=== PATIENT | male | born 1945 | race African-American/Black ===

== ENCOUNTER 2017-07-14 15:10 | Inpatient (IN) | payer MEDICARE, OTHER ==
[~2017-07-14] VITALS: Ht 182.9 cm; Wt 113.4 kg
[2017-07-14 15:30] VITALS: BP 182/95
--- NOTE | 2017-07-14 16:06 | Emergency Room Report ---
History of Present Illness General Chief Complaint: General Complaint Source: Medical Record, EMS, PMD Present Illness HPI Patient was sent in to have the gastrostomy tube removed. He apparently is able to eat and swallow without any difficulty this time. Tube was placed after a CVA and aspiration. The patient has no complaints at this time. S/P CVA. Had aspiration after CVA with dysphagia. Diabetes. Glaucoma R eye. Denies pain. Patient poor historian and history is limited. Allergies: Coded Allergies: No Known Allergies (Unverified , 07/14/17) Patient History Limited by: medical condition Past Medical History: see triage record, old chart reviewed Social History Narrative [place] Reviewed Nursing Documentation: PMH: Agreed, PSxH: Agreed Nursing Documentation-PMH Hx Hypertension: Yes Hx Cerebrovascular Accident: Yes Review of Systems All Other Systems: limited Physical Exam Vital Signs Date Time Temp Pulse Resp B/P (MAP) Pulse Ox O2 Delivery O2 Flow Rate FiO2 07/14/17 15:27 98.8 96 16 180/90 98 Room Air 98.8 Sp02 EP Interpretation: reviewed, normal General Appearance: no apparent distress, alert, Chronically Ill Head: normocephalic, atraumatic Eyes: right eye other - Opacity right cornea ENT: hearing grossly normal, normal voice, moist mucus membranes Neck: full range of motion, supple Respiratory: no respiratory distress, speaking full sentences Cardiovascular #1: regular rate, rhythm, no edema Gastrointestinal: normal inspection, normal bowel sounds, soft, no mass, other - peg tube Musculoskeletal: non-tender, no calf tenderness Neurologic: alert, DTRs symmetric, sensory intact, normal gait Psychiatric: mood/affect normal Skin: no rash Medical Decision Making Diagnostic Impression: Primary Impression: Gastrostomy tube evaluation Additional Impressions: Status post stroke Renal insufficiency Glaucoma Qualified Codes: H40.9 - Unspecified glaucoma Hyperglycemia ER Course The patient is here to have his gastrostomy tube removed. He is able to eat at this time. Denies any pain. Consideration for possible dehydration. Labs, Abd film and EKG ordered. IV hydration ordered. Because PEG tube that I am unable to remove. Labs with normal CBC, elevated renal function (no mention of insufficiency in past or access to old labs). Glucose elevated. EKG no injury. Abd film with inc stool and G tube. Patient treated with IV hydration. Dr. Springer requests admission to the [facility]. Laboratory Tests Test 07/14/17 17:50 07/14/17 18:36 White Blood Count 5.9 K/UL (4.8-10.8) Red Blood Count 4.07 M/UL (4.70-6.10) L Hemoglobin 13.1 G/DL (14.2-18.0) L Hematocrit 39.6 % (42.0-52.0) L Mean Corpuscular Volume 97 FL (80-99) Mean Corpuscular Hemoglobin 32.1 PG (27.0-31.0) H Mean Corpuscular Hemoglobin Concent 33.0 G/DL (32.0-36.0) Red Cell Distribution Width 13.6 % (11.6-14.8) Platelet Count 100 K/UL (150-450) L Mean Platelet Volume 10.1 FL (6.5-10.1) Neutrophils (%) (Auto) 49.6 % (45.0-75.0) Lymphocytes (%) (Auto) 36.9 % (20.0-45.0) Monocytes (%) (Auto) 7.5 % (1.0-10.0) Eosinophils (%) (Auto) 4.6 % (0.0-3.0) H Basophils (%) (Auto) 1.4 % (0.0-2.0) Prothrombin Time 10.2 SEC (9.30-11.50) Prothrombin Time INR 1.0 (0.9-1.1) PTT 25 SEC (23-33) Sodium Level 141 MMOL/L (136-145) Potassium Level 4.2 MMOL/L (3.5-5.1) Chloride Level 106 MMOL/L (98-107) Carbon Dioxide Level 30 MMOL/L (21-32) Anion Gap 5 mmol/L (5-15) Blood Urea Nitrogen 29 mg/dL (7-18) H Creatinine 2.0 MG/DL (0.55-1.30) H Estimate Glomerular Filtration Rate mL/min (>60) Glucose Level 232 MG/DL (74-106) H Uric Acid 5.2 MG/DL (2.6-7.2) Calcium Level 8.2 MG/DL (8.5-10.1) L Total Bilirubin 0.5 MG/DL (0.2-1.0) Aspartate Amino Transferase (AST) 15 U/L (15-37) Alanine Aminotransferase (ALT) 24 U/L (12-78) Alkaline Phosphatase 121 U/L (46-116) H Total Creatine Kinase 71 U/L (26-308) Total Protein 7.3 G/DL (6.4-8.2) Albumin 2.8 G/DL (3.4-5.0) L Globulin 4.5 g/dL Albumin/Globulin Ratio 0.6 (1.0-2.7) L Lipase 119 U/L (73-393) Urine Color Yellow Urine Appearance Clear Urine pH 6 (4.5-8.0) Urine Specific [place] 1.015 (1.005-1.035) Urine Protein 4+ (NEGATIVE) H Urine Glucose (UA) 2+ (NEGATIVE) H Urine Ketones Negative (NEGATIVE) Urine Occult Blood 1+ (NEGATIVE) H Urine Nitrite Negative (NEGATIVE) Urine Bilirubin Negative (NEGATIVE) Urine Urobilinogen Normal MG/DL (0.0-1.0) Urine Leukocyte Esterase Negative (NEGATIVE) Urine RBC 0-2 /HPF (0 - 0) H Urine WBC 2-4 /HPF (0 - 0) Urine Squamous Epithelial Cells None /LPF (NONE/OCC) Urine Amorphous Sediment Few /LPF (NONE) H Urine Bacteria Few /HPF (NONE) Urine Fine Granular Casts 0-2 /LPF (NONE) H Urine Coarse Granular Casts 0-2 /LPF (NONE) H Urine Eosinophils None seen Urine Random Sodium 60 MEQ/L (20-110) Urine Potassium Timed 50 mmol/L (12-62) EKG Diagnostic Results Rate: normal Rhythm: NSR ST Segments: no acute changes Rhythm Strip Diag. Results EP Interpretation: yes Rhythm: NSR, no PVC's, no ectopy Other X-Ray Diagnostic Results Other X-Ray Diagnostic Results : # of Views/Limited Vs Complete: 1 View Indication: Other EP Interpretation: Yes Interpretation: nonspecific bowel gas, no sbo, other - inc stool and g tube Impression: Other Electronically Signed by: Fco Mondragon MD Last Vital Signs Date Time Temp Pulse Resp B/P (MAP) Pulse Ox O2 Delivery O2 Flow Rate FiO2 07/14/17 23:05 97.5 77 19 142/77 96 Room Air 97.5 Status: improved Disposition: ADMITTED INPATIENT Condition: Stable Fco Mondragon M.D. Jul 14, 2017 16:06
[2017-07-14] MEDS ORDERED: ACETAMINOPHEN325 M1 ORAL (17:51)
[2017-07-14] MEDS ORDERED: ATORVASTATIN CA80 MG ORAL (17:52)
[2017-07-14] MEDS ORDERED: ALLOPURINOL100 M1 ORAL (17:52)
[2017-07-14] MEDS ORDERED: CARVEDILOL3.125 MG ORAL (17:53)
[2017-07-14] MEDS ORDERED: FERROUS SULFAT325 MG ORAL (17:54)
[2017-07-14] MEDS ORDERED: PEPCID20 MG ORAL (17:54)
[2017-07-14] MEDS ORDERED: NOVOLIN R100 UNIT/1 SUBQ (17:57)
[2017-07-14] MEDS ORDERED: MULTIVITAMINS1 EAC8 ORAL (17:58)
[2017-07-14] MEDS ORDERED: LEVEMIR100 UNIT/1 SUBQ (17:58)
[2017-07-14] MEDS ORDERED: DOCUSATE SODIU100 MG ORAL (17:59)
[2017-07-14 18:00] VITALS: BP 180/96
[2017-07-14 18:17] LABS: BASOPHILS % (AUTO) 1.4 % (0.0-2.0); EOSINOPHILS % (AUTO) 4.6 % (0.0-3.0); HEMATOCRIT 39.6 % (42.0-52.0); HEMOGLOBIN 13.1 G/DL (14.2-18.0); LYMPHOCYTES % (AUTO) 36.9 % (20.0-45.0); MEAN CORPUSCULAR VOLUME 97 FL (80-99); MONOCYTES % (AUTO) 7.5 % (1.0-10.0); NEUTROPHILS % (AUTO) 49.6 % (45.0-75.0); PLATELET COUNT 100 K/UL (150-450); RED BLOOD COUNT 4.07 M/UL (4.70-6.10); RED CELL DISTRIBUTION WIDTH 13.6 % (11.6-14.8); WHITE BLOOD COUNT 5.9 K/UL (4.8-10.8)
[2017-07-14 18:26] LABS: ANION GAP 5 mmol/L (5-15); BLOOD UREA NITROGEN 29 mg/dL (7-18); CALCIUM 8.2 MG/DL (8.5-10.1); CARBON DIOXIDE 30 MMOL/L (21-32); CHLORIDE 106 MMOL/L (98-107); POTASSIUM 4.2 MMOL/L (3.5-5.1); SODIUM 141 MMOL/L (136-145)
[2017-07-14 18:31] LABS: ALANINE AMINOTRANSFERASE 24 U/L (12-78); ALBUMIN 2.8 G/DL (3.4-5.0); ALBUMIN/GLOBULIN RATIO 0.6 (1.0-2.7); ALKALINE PHOSPHATASE 121 U/L (46-116); ASPARTATE AMINO TRANSFERASE 15 U/L (15-37); BILIRUBIN,TOTAL 0.5 MG/DL (0.2-1.0)
[2017-07-14 18:43] VITALS: BP 153/88
[2017-07-14 19:12] LABS: APPEARANCE,URINE CLEAR; BILIRUBIN, URINE NEGATIVE (NEGATIVE); GLUCOSE, URINE (UA) 2+ (NEGATIVE); KETONES,URINE NEGATIVE (NEGATIVE); LEUKOCYTE ESTERASE ,URINE NEGATIVE (NEGATIVE); NITRITE,URINE NEGATIVE (NEGATIVE); PH,URINE 6 (4.5-8.0); PROTEIN,URINE 4+ (NEGATIVE); UROBILINOGEN,URINE NORMAL MG/DL (0.0-1.0)
[2017-07-14] MEDS ORDERED: LORazepam Inj 2mg/ml 1ml IV PRN (19:15)
[2017-07-14] MEDS ORDERED: Morphine Sulfate 4mg/ml Inj IVP PRN (19:15)
[2017-07-14] MEDS ORDERED: Miralax 17gm pkt ORAL PRN (19:15)
[2017-07-14] MEDS ORDERED: Mylanta II UD 30ml ORAL PRN (19:15)
[2017-07-14 19:26] LABS: COLOR,URINE YELLOW
[2017-07-14 19:45] VITALS: BP 145/89
[2017-07-14 20:19] LABS: CREATINE KINASE 71 U/L (26-308)
[2017-07-14] MEDS: Heparin 5000 units/ml inj SUBQ SCH (21:00)
[2017-07-14] MEDS ORDERED: Zolpidem 5mg tab ORAL PRN (21:00)
[2017-07-14] MEDS: Atorvastatin 80mg tab ORAL SCH (21:33)
[2017-07-14] MEDS: NovoLOG Insulin Flexpen SUBQ SCH (21:37)
[2017-07-14 23:05] VITALS: BP 142/77
[2017-07-15] VITALS: BP 154/77
[2017-07-15 04:00] VITALS: BP 160/90
[2017-07-15 06:34] LABS: BASOPHILS % (AUTO) 0.8 % (0.0-2.0); EOSINOPHILS % (AUTO) 4.9 % (0.0-3.0); HEMATOCRIT 33.4 % (42.0-52.0); HEMOGLOBIN 11.3 G/DL (14.2-18.0); LYMPHOCYTES % (AUTO) 40.7 % (20.0-45.0); MEAN CORPUSCULAR VOLUME 97 FL (80-99); MONOCYTES % (AUTO) 7.3 % (1.0-10.0); NEUTROPHILS % (AUTO) 46.3 % (45.0-75.0); PLATELET COUNT 103 K/UL (150-450); RED BLOOD COUNT 3.44 M/UL (4.70-6.10); RED CELL DISTRIBUTION WIDTH 12.6 % (11.6-14.8); WHITE BLOOD COUNT 5.3 K/UL (4.8-10.8)
[2017-07-15] MEDS: Levemir Flexpen SUBQ SCH (06:52)
[2017-07-15] MEDS: NovoLOG Insulin Flexpen SUBQ SCH ×3 (06:52→17:23)
[2017-07-15 07:25] LABS: ALANINE AMINOTRANSFERASE 23 U/L (12-78); ALBUMIN 2.5 G/DL (3.4-5.0); ALBUMIN/GLOBULIN RATIO 0.6 (1.0-2.7); ALKALINE PHOSPHATASE 104 U/L (46-116); ANION GAP 9 mmol/L (5-15); ASPARTATE AMINO TRANSFERASE 15 U/L (15-37); BILIRUBIN,TOTAL 0.7 MG/DL (0.2-1.0); BLOOD UREA NITROGEN 26 mg/dL (7-18); CALCIUM 7.9 MG/DL (8.5-10.1); CARBON DIOXIDE 25 MMOL/L (21-32); CHLORIDE 109 MMOL/L (98-107); CHOLESTEROL 97 MG/DL (< 200); CREATININE 1.8 MG/DL (0.55-1.30); HDL CHOLESTEROL 45 MG/DL (40-60); POTASSIUM 4.1 MMOL/L (3.5-5.1); SODIUM 143 MMOL/L (136-145); TRIGLYCERIDES 52 MG/DL (30-150)
[2017-07-15 08:00] VITALS: BP 137/74
[2017-07-15] MEDS: Allopurinol 100mg Tab ORAL SCH (08:40)
[2017-07-15] MEDS: Heparin 5000 units/ml inj SUBQ SCH (08:45)
--- NOTE | 2017-07-15 11:13 | GI Initial Consult Note ---
Ojeda,Chioma Morinoi N.P. 07/15/17 1112: History of Present Illness General Date patient seen: Jul 15, 2017 Time patient seen: 11:05 Reason for Hospitalization: General Complaint Referring physician: NATHALIA SHAH Reason for Consultation: GT REMOVAL Present Illness HPI Patient was sent in to have the gastrostomy tube removed. He apparently is able to eat and swallow without any difficulty this time. Tube was placed after a CVA and aspiration. The patient has no complaints at this time. S/P CVA. Had aspiration after CVA with dysphagia. Diabetes. Glaucoma R eye. Denies pain. Patient poor historian and history is limited. GI consulted for GT removal. Pt blind. Poor historian. Seen on Med Surg, awake A&O NAD with no active s/sx of N/V/D. Pt states he doesn't need GT anymore, tolerating diet. Presents with mild anemia. Denies any unintentional weight loss or changes in dietary habits. Home Meds Reported Medications Docusate Sodium* (DOCUSATE SODIUM*) 100 Mg Capsule, 200 MG ORAL DAILY, CAP 07/14/17 Multivitamin With Minerals (MULTIVITAMINS WITH MINERALS*) 1 Each Tablet, 1 TAB ORAL DAILY, TAB 07/14/17 Insulin Detemir (LEVEMIR) 100 Unit/1 Ml Vial, 44 UNITS SUBQ ACBREAKFAST, VIAL Hold if BG <100 07/14/17 Insulin Regular, Human* (NOVOLIN R*) 100 Unit/1 Ml Vial, 0 SUBQ .SLIDING SCALE, UNITS If 151-200 = 2 units; 201-250 = 4 units; 251-300 = 6 units; 301-350 = 8 units; 351-400 = 10 units, SQ before meals and at bedtime. Finger stick blood sugar monitoring Q6Hrs, if >400, give 12 units and call MD 07/14/17 Ferrous Sulfate* (FERROUS SULFATE*) 325 Mg Tablet, 325 MG ORAL DAILY, #30 TAB 0 Refills 07/14/17 Famotidine (PEPCID) 20 Mg Tablet, 20 MG ORAL BID, #7 TAB 0 Refills 07/14/17 Carvedilol* (CARVEDILOL*) 3.125 Mg Tablet, 3.125 MG ORAL BID, TAB Take with food. Hold if SBP <110 or HR <60 07/14/17 Atorvastatin Calcium* (LIPITOR*) 80 Mg Tablet, 80 MG ORAL BEDTIME, TAB 07/14/17 Allopurinol* (ALLOPURINOL*) 100 Mg Tablet, 100 MG ORAL DAILY, TAB 07/14/17 Acetaminophen* (ACETAMINOPHEN 325MG TABLET*) 325 Mg Tablet, 650 MG ORAL Q6H Y for Mild Pain/Temp > 100.5 MDD 3GM, TAB 07/14/17 Med list reviewed/reconciled: Yes Allergies: Coded Allergies: No Known Allergies (Unverified , 07/14/17) Patient History History Provided By: Patient, Medical Record PMH Narrative Limited by: medical condition Past Medical History: see triage record, old chart reviewed Social History Narrative [place] Reviewed Nursing Documentation: PMH: Agreed, PSxH: Agreed Nursing Documentation-PMH Hx Hypertension: Yes Hx Cerebrovascular Accident: Yes Social History: Denies: smoking, alcohol use, drug use, other Review of Systems All Other Systems: negative except mentioned in HPI Physical Exam Vital Signs Date Time Temp Pulse Resp B/P (MAP) Pulse Ox O2 Delivery O2 Flow Rate FiO2 07/14/17 15:27 98.8 96 16 180/90 98 Room Air 98.8 Sp02 EP Interpretation: reviewed, normal Labs Laboratory Tests Test 07/14/17 17:50 07/14/17 18:36 07/15/17 05:15 White Blood Count 5.9 K/UL (4.8-10.8) 5.3 K/UL (4.8-10.8) Red Blood Count 4.07 M/UL (4.70-6.10) L 3.44 M/UL (4.70-6.10) L Hemoglobin 13.1 G/DL (14.2-18.0) L 11.3 G/DL (14.2-18.0) L Hematocrit 39.6 % (42.0-52.0) L 33.4 % (42.0-52.0) L Mean Corpuscular Volume 97 FL (80-99) 97 FL (80-99) Mean Corpuscular Hemoglobin 32.1 PG (27.0-31.0) H 32.8 PG (27.0-31.0) H Mean Corpuscular Hemoglobin Concent 33.0 G/DL (32.0-36.0) 33.8 G/DL (32.0-36.0) Red Cell Distribution Width 13.6 % (11.6-14.8) 12.6 % (11.6-14.8) Platelet Count 100 K/UL (150-450) L 103 K/UL (150-450) L Mean Platelet Volume 10.1 FL (6.5-10.1) 10.1 FL (6.5-10.1) Neutrophils (%) (Auto) 49.6 % (45.0-75.0) 46.3 % (45.0-75.0) Lymphocytes (%) (Auto) 36.9 % (20.0-45.0) 40.7 % (20.0-45.0) Monocytes (%) (Auto) 7.5 % (1.0-10.0) 7.3 % (1.0-10.0) Eosinophils (%) (Auto) 4.6 % (0.0-3.0) H 4.9 % (0.0-3.0) H Basophils (%) (Auto) 1.4 % (0.0-2.0) 0.8 % (0.0-2.0) Prothrombin Time 10.2 SEC (9.30-11.50) Prothromb Time International Ratio 1.0 (0.9-1.1) Activated Partial Thromboplast Time 25 SEC (23-33) Sodium Level 141 MMOL/L (136-145) 143 MMOL/L (136-145) Potassium Level 4.2 MMOL/L (3.5-5.1) 4.1 MMOL/L (3.5-5.1) Chloride Level 106 MMOL/L (98-107) 109 MMOL/L (98-107) H Carbon Dioxide Level 30 MMOL/L (21-32) 25 MMOL/L (21-32) Anion Gap 5 mmol/L (5-15) 9 mmol/L (5-15) Blood Urea Nitrogen 29 mg/dL (7-18) H 26 mg/dL (7-18) H Creatinine 2.0 MG/DL (0.55-1.30) H 1.8 MG/DL (0.55-1.30) H Estimat Glomerular Filtration Rate mL/min (>60) mL/min (>60) Glucose Level 232 MG/DL (74-106) H 180 MG/DL (74-106) H Uric Acid 5.2 MG/DL (2.6-7.2) Calcium Level 8.2 MG/DL (8.5-10.1) L 7.9 MG/DL (8.5-10.1) L Total Bilirubin 0.5 MG/DL (0.2-1.0) 0.7 MG/DL (0.2-1.0) Aspartate Amino Transf (AST/SGOT) 15 U/L (15-37) 15 U/L (15-37) Alanine Aminotransferase (ALT/SGPT) 24 U/L (12-78) 23 U/L (12-78) Alkaline Phosphatase 121 U/L (46-116) H 104 U/L (46-116) Total Creatine Kinase 71 U/L (26-308) Total Protein 7.3 G/DL (6.4-8.2) 6.6 G/DL (6.4-8.2) Albumin 2.8 G/DL (3.4-5.0) L 2.5 G/DL (3.4-5.0) L Globulin 4.5 g/dL 4.1 g/dL Albumin/Globulin Ratio 0.6 (1.0-2.7) L 0.6 (1.0-2.7) L Lipase 119 U/L (73-393) Urine Color Yellow Urine Appearance Clear Urine pH 6 (4.5-8.0) Urine Specific [place] 1.015 (1.005-1.035) Urine Protein 4+ (NEGATIVE) H Urine Glucose (UA) 2+ (NEGATIVE) H Urine Ketones Negative (NEGATIVE) Urine Occult Blood 1+ (NEGATIVE) H Urine Nitrite Negative (NEGATIVE) Urine Bilirubin Negative (NEGATIVE) Urine Urobilinogen Normal MG/DL (0.0-1.0) Urine Leukocyte Esterase Negative (NEGATIVE) Urine RBC 0-2 /HPF (0 - 0) H Urine WBC 2-4 /HPF (0 - 0) Urine Squamous Epithelial Cells None /LPF (NONE/OCC) Urine Amorphous Sediment Few /LPF (NONE) H Urine Bacteria Few /HPF (NONE) Urine Fine Granular Casts 0-2 /LPF (NONE) H Urine Coarse Granular Casts 0-2 /LPF (NONE) H Urine Eosinophils None seen Urine Random Sodium 60 MEQ/L (20-110) Urine Potassium Timed 50 mmol/L (12-62) Triglycerides Level 52 MG/DL (30-150) Cholesterol Level 97 MG/DL (< 200) LDL Cholesterol 51 mg/dL (<100) HDL Cholesterol 45 MG/DL (40-60) Cholesterol/HDL Ratio 2.2 (3.3-4.4) L General Appearance: well appearing, no apparent distress, alert Head: normocephalic EENT: other - blind Neck: supple Respiratory: normal breath sounds, no respiratory distress Cardiovascular: normal rate Gastrointestinal: normal inspection, non tender, soft, normal bowel sounds, non -distended Rectal: deferred Genitourinary: deferred Musculoskeletal: normal inspection, back normal Neurologic: normal inspection, alert, oriented x3, responsive Psychiatric: normal inspection, judgement/insight normal, memory normal Skin: normal inspection, normal color, no rash, warm/dry, palpation normal, well hydrated Lymphatic: normal inspection, no adenopathy Current Medications Current Medications Medications (Trade) Dose Ordered Sig/Jethro Route PRN Reason Start Time Stop Time Status Last Admin Dose Admin Acetaminophen (Tylenol) 650 mg Q4H PRN ORAL T>100.5 07/14/17 19:15 08/13/17 19:14 Al Hydroxide/Mg Hydroxide (Mylanta II) 30 ml Q6H PRN ORAL dyspepsia 07/14/17 19:15 08/13/17 19:14 Allopurinol (Zyloprim) 100 mg DAILY ORAL 07/15/17 09:00 08/14/17 08:59 07/15/17 08:40 Atorvastatin Calcium (Lipitor) 80 mg BEDTIME ORAL 07/14/17 21:00 08/13/17 20:59 07/14/17 21:33 Carvedilol (Coreg) 3.125 mg Q12HR ORAL 07/14/17 21:00 08/13/17 20:59 07/15/17 08:44 Clonidine HCl (Catapres Tab) 0.1 mg Q6H PRN ORAL For High Blood Pressure 07/15/17 06:45 08/14/17 06:44 07/15/17 06:54 Dextrose (Dextrose 50%) STAT PRN IV Hypoglycemia 07/14/17 19:15 08/13/17 19:14 Heparin Sodium (Porcine) (Heparin 5000 units/ml) 5,000 units EVERY 12 HOURS SUBQ 07/14/17 21:00 08/13/17 20:59 07/15/17 08:45 Insulin Aspart (NovoLOG) BEFORE MEALS AND HS SUBQ 07/14/17 21:00 08/13/17 20:59 07/15/17 06:52 Insulin Detemir (Levemir) 34 units Q24H SUBQ 07/15/17 06:30 08/14/17 06:29 07/15/17 06:52 Lorazepam (Ativan 2mg/ml 1ml) 0.5 mg Q4H PRN IV For Anxiety 07/14/17 19:15 07/21/17 19:14 Morphine Sulfate (Morphine Sulfate) 1 mg Q4H PRN IVP Severe Pain (Pain Scale 7-10) 07/14/17 19:15 07/21/17 19:14 Ondansetron HCl (Zofran) 4 mg Q6H PRN IVP Nausea & Vomiting 07/14/17 19:15 08/13/17 19:14 Polyethylene Glycol (Miralax) 17 gm HSPRN PRN ORAL Constipation 07/14/17 19:15 08/13/17 19:14 07/14/17 23:39 Sodium Chloride 1,000 ml @ 200 mls/hr Q5H IV 07/14/17 19:45 08/13/17 19:44 07/15/17 03:09 Zolpidem Tartrate (Ambien) 5 mg HSPRN PRN ORAL Insomnia 07/14/17 21:00 07/21/17 20:59 GI: Plan Problems: (1) Anemia (2) PEG (percutaneous endoscopic gastrostomy) adjustment/replacement/removal (3) Hyperglycemia Plan ST evaluation ordered, will follow up for GT removal DM management anemia work up monitor H&H, prn transfusions bowel regime ppi fu labs Discussed with Dr. Shields. Thank you for this patient referral, we will follow. LUCIUS SHIELDS 07/20/17 1221: History of Present Illness General Reason for Hospitalization: General Complaint Present Illness Home Meds Reported Medications Docusate Sodium* (DOCUSATE SODIUM*) 100 Mg Capsule, 200 MG ORAL DAILY, CAP 07/14/17 Multivitamin With Minerals (MULTIVITAMINS WITH MINERALS*) 1 Each Tablet, 1 TAB ORAL DAILY, TAB 07/14/17 Insulin Detemir (LEVEMIR) 100 Unit/1 Ml Vial, 44 UNITS SUBQ ACBREAKFAST, VIAL Hold if BG <100 07/14/17 Insulin Regular, Human* (NOVOLIN R*) 100 Unit/1 Ml Vial, 0 SUBQ .SLIDING SCALE, UNITS If 151-200 = 2 units; 201-250 = 4 units; 251-300 = 6 units; 301-350 = 8 units; 351-400 = 10 units, SQ before meals and at bedtime. Finger stick blood sugar monitoring Q6Hrs, if >400, give 12 units and call MD 07/14/17 Ferrous Sulfate* (FERROUS SULFATE*) 325 Mg Tablet, 325 MG ORAL DAILY, #30 TAB 0 Refills 07/14/17 Famotidine (PEPCID) 20 Mg Tablet, 20 MG ORAL BID, #7 TAB 0 Refills 07/14/17 Carvedilol* (CARVEDILOL*) 3.125 Mg Tablet, 3.125 MG ORAL BID, TAB Take with food. Hold if SBP <110 or HR <60 07/14/17 Atorvastatin Calcium* (LIPITOR*) 80 Mg Tablet, 80 MG ORAL BEDTIME, TAB 07/14/17 Allopurinol* (ALLOPURINOL*) 100 Mg Tablet, 100 MG ORAL DAILY, TAB 07/14/17 Acetaminophen* (ACETAMINOPHEN 325MG TABLET*) 325 Mg Tablet, 650 MG ORAL Q6H Y for Mild Pain/Temp > 100.5 MDD 3GM, TAB 07/14/17 Allergies: Coded Allergies: No Known Allergies (Unverified , 07/14/17) GI: Plan Plan The patient was seen and examined at bedside and all new and available data was reviewed in the patients chart. I agree with the above findings, impression and plan. (Patient seen earlier today. Signature stamp does not reflect patient encounter time.). - MD Lynette Briscoe,[facility] N.PMuna Jul 15, 2017 11:12 LUCIUS SHIELDS Jul 20, 2017 12:21
--- NOTE | 2017-07-15 14:20 | Pulmonology Progress Note ---
Assessment/Plan Problems: (1) Diabetes mellitus (2) At high risk for aspiration (3) Hyperglycemia (4) Renal insufficiency (5) PEG (percutaneous endoscopic gastrostomy) adjustment/replacement/removal (6) Status post stroke Assessment/Plan passed swallow study gtube removed. iv fluids renal w/u check electrolytes dvt prophylaxis. Subjective ROS Limited/Unobtainable: No Allergies: Coded Allergies: No Known Allergies (Unverified , 07/14/17) Objective Last 24 Hour Vital Signs Date Time Temp Pulse Resp B/P (MAP) Pulse Ox O2 Delivery O2 Flow Rate FiO2 07/15/17 08:44 67 161/91 07/15/17 08:00 97.7 70 20 137/74 98 97.7 07/15/17 06:54 161/91 07/15/17 04:00 98.3 67 20 160/90 99 Room Air 98.3 07/15/17 00:00 98.5 71 20 154/77 99 Room Air 98.5 07/14/17 23:05 97.5 77 19 142/77 96 Room Air 97.5 07/14/17 21:34 77 142/77 07/14/17 19:45 98.7 80 19 145/89 100 Room Air 98.7 07/14/17 18:45 84 20 153/88 100 Room Air 07/14/17 18:43 153/88 07/14/17 18:00 80 16 180/96 100 Room Air 07/14/17 15:30 98.8 95 16 182/95 98 Room Air 98.8 07/14/17 15:27 98.8 96 16 180/90 98 Room Air 98.8 Intake and Output 07/14/17 07/15/17 19:00 07:00 Intake Total 0 ml 1000 ml Balance 0 ml 1000 ml Intake Oral 0 ml IV Total 1000 ml # Voids 2 Objective General Appearance: no apparent distress, awake, not communicating Lines, tubes and drains: peripheral HEENT: normocephalic, atraumatic, anicteric Neck: non-tender, supple Respiratory/Chest: decreased breath sounds Cardiovascular/Chest: normal rate, regular rhythm - SR with PVC Abdomen: normal bowel sounds, non tender, Gtube in place Neurologic: no motor/sensory deficits, alert, responsive Musculoskeletal: normal muscle bulk Laboratory Tests 07/14/17 17:50: White Blood Count 5.9, Red Blood Count 4.07L, Hemoglobin 13.1L, Hematocrit 39.6L , Mean Corpuscular Volume 97, Mean Corpuscular Hemoglobin 32.1H, Mean Corpuscular Hemoglobin Concent 33.0, Red Cell Distribution Width 13.6, Platelet Count 100L, Mean Platelet Volume 10.1, Neutrophils (%) (Auto) 49.6, Lymphocytes (%) (Auto) 36.9, Monocytes (%) (Auto) 7.5, Eosinophils (%) (Auto) 4.6H, Basophils (%) (Auto) 1.4, Prothrombin Time 10.2, Prothromb Time International Ratio 1.0, Activated Partial Thromboplast Time 25, Sodium Level 141, Potassium Level 4.2, Chloride Level 106, Carbon Dioxide Level 30, Anion Gap 5, Blood Urea Nitrogen 29H, Creatinine 2.0H, Estimat Glomerular Filtration Rate , Glucose Level 232H, Uric Acid 5.2, Calcium Level 8.2L, Total Bilirubin 0.5, Aspartate Amino Transf (AST/SGOT) 15, Alanine Aminotransferase (ALT/SGPT) 24, Alkaline Phosphatase 121H, Total Creatine Kinase 71, Total Protein 7.3, Albumin 2.8L, Globulin 4.5, Albumin/Globulin Ratio 0.6L, Lipase 119 07/14/17 18:36: Urine Color Yellow, Urine Appearance Clear, Urine pH 6, Urine Specific [place] 1.015, Urine Protein 4+H, Urine Glucose (UA) 2+H, Urine Ketones Negative, Urine Occult Blood 1+H, Urine Nitrite Negative, Urine Bilirubin Negative, Urine Urobilinogen Normal, Urine Leukocyte Esterase Negative, Urine RBC 0-2H, Urine WBC 2-4, Urine Squamous Epithelial Cells None, Urine Amorphous Sediment FewH, Urine Bacteria Few, Urine Fine Granular Casts 0-2H, Urine Coarse Granular Casts 0-2H, Urine Eosinophils None seen, Urine Random Sodium 60, Urine Potassium Timed 50 07/15/17 05:15: White Blood Count 5.3, Red Blood Count 3.44L, Hemoglobin 11.3L, Hematocrit 33.4L , Mean Corpuscular Volume 97, Mean Corpuscular Hemoglobin 32.8H, Mean Corpuscular Hemoglobin Concent 33.8, Red Cell Distribution Width 12.6, Platelet Count 103L, Mean Platelet Volume 10.1, Neutrophils (%) (Auto) 46.3, Lymphocytes (%) (Auto) 40.7, Monocytes (%) (Auto) 7.3, Eosinophils (%) (Auto) 4.9H, Basophils (%) (Auto) 0.8, Sodium Level 143, Potassium Level 4.1, Chloride Level 109H, Carbon Dioxide Level 25, Anion Gap 9, Blood Urea Nitrogen 26H, Creatinine 1.8H, Estimat Glomerular Filtration Rate , Glucose Level 180H, Calcium Level 7.9L, Total Bilirubin 0.7, Aspartate Amino Transf (AST/SGOT) 15, Alanine Aminotransferase (ALT/SGPT) 23, Alkaline Phosphatase 104, Total Protein 6.6, Albumin 2.5L, Globulin 4.1, Albumin/Globulin Ratio 0.6L, Triglycerides Level 52 , Cholesterol Level 97, LDL Cholesterol 51, HDL Cholesterol 45, Cholesterol/HDL Ratio 2.2L Current Medications Medications (Trade) Dose Ordered Sig/Jethro Route PRN Reason Start Time Stop Time Status Last Admin Dose Admin Acetaminophen (Tylenol) 650 mg Q4H PRN ORAL T>100.5 07/14/17 19:15 08/13/17 19:14 Al Hydroxide/Mg Hydroxide (Mylanta II) 30 ml Q6H PRN ORAL dyspepsia 07/14/17 19:15 08/13/17 19:14 Allopurinol (Zyloprim) 100 mg DAILY ORAL 07/15/17 09:00 08/14/17 08:59 07/15/17 08:40 Atorvastatin Calcium (Lipitor) 80 mg BEDTIME ORAL 07/14/17 21:00 08/13/17 20:59 07/14/17 21:33 Carvedilol (Coreg) 3.125 mg Q12HR ORAL 07/14/17 21:00 08/13/17 20:59 07/15/17 08:44 Clonidine HCl (Catapres Tab) 0.1 mg Q6H PRN ORAL For High Blood Pressure 07/15/17 06:45 08/14/17 06:44 07/15/17 06:54 Dextrose (Dextrose 50%) STAT PRN IV Hypoglycemia 07/14/17 19:15 08/13/17 19:14 Heparin Sodium (Porcine) (Heparin 5000 units/ml) 5,000 units EVERY 12 HOURS SUBQ 07/14/17 21:00 08/13/17 20:59 07/15/17 08:45 Insulin Aspart (NovoLOG) BEFORE MEALS AND HS SUBQ 07/14/17 21:00 08/13/17 20:59 07/15/17 12:32 Insulin Detemir (Levemir) 34 units Q24H SUBQ 07/15/17 06:30 08/14/17 06:29 07/15/17 06:52 Lorazepam (Ativan 2mg/ml 1ml) 0.5 mg Q4H PRN IV For Anxiety 07/14/17 19:15 07/21/17 19:14 Morphine Sulfate (Morphine Sulfate) 1 mg Q4H PRN IVP Severe Pain (Pain Scale 7-10) 07/14/17 19:15 07/21/17 19:14 Ondansetron HCl (Zofran) 4 mg Q6H PRN IVP Nausea & Vomiting 07/14/17 19:15 08/13/17 19:14 Pantoprazole (Protonix) 40 mg DAILY ORAL 07/16/17 09:00 08/15/17 08:59 Polyethylene Glycol (Miralax) 17 gm HSPRN PRN ORAL Constipation 07/14/17 19:15 08/13/17 19:14 07/14/17 23:39 Zolpidem Tartrate (Ambien) 5 mg HSPRN PRN ORAL Insomnia 07/14/17 21:00 07/21/17 20:59 CELIA PATEL Jul 15, 2017 14:20
--- NOTE | 2017-07-15 14:20 | History and Physical ---
History of Present Illness General Date patient seen: Jul 14, 2017 Reason for Hospitalization: General Complaint Present Illness HPI 72 year old male with hx of CVA.aspiration after CVA with dysphagia., Diabetes.was sent in to have the gastrostomy tube removed and evaluation of aspiration. He apparently is able to eat and swallow without any difficulty this time. Patient poor historian and history is limited. Allergies: Coded Allergies: No Known Allergies (Unverified , 07/14/17) Medication History Scheduled Allopurinol* (Allopurinol*), 100 MG ORAL DAILY, (Reported) Atorvastatin Calcium* (Lipitor*), 80 MG ORAL BEDTIME, (Reported) Carvedilol* (Carvedilol*), 3.125 MG ORAL BID, (Reported) Docusate Sodium* (Docusate Sodium*), 200 MG ORAL DAILY, (Reported) Famotidine (Pepcid), 20 MG ORAL BID, (Reported) Ferrous Sulfate* (Ferrous Sulfate*), 325 MG ORAL DAILY, (Reported) Insulin Detemir (Levemir), 44 UNITS SUBQ ACBREAKFAST, (Reported) Insulin Regular, Human* (Novolin R*), 0 SUBQ .SLIDING SCALE, (Reported) Multivitamin With Minerals (Multivitamins With Minerals*), 1 TAB ORAL DAILY, ( Reported) Scheduled PRN Acetaminophen* (Acetaminophen 325MG Tablet*), 650 MG ORAL Q6H PRN for Mild Pain/ Temp > 100.5, (Reported) Patient History Healthcare decision maker Resuscitation status Full Code Advanced Directive on File Yes Past Medical/Surgical History Past Medical/Surgical History: (1) Diabetes mellitus (2) Status post stroke Review of Systems All Other Systems: negative except mentioned in HPI Physical Exam Physical Exam Narrative General Appearance: no apparent distress, awake, not communicating Lines, tubes and drains: peripheral HEENT: normocephalic, atraumatic, anicteric Neck: non-tender, supple Respiratory/Chest: decreased breath sounds Cardiovascular/Chest: normal rate, regular rhythm - SR with PVC Abdomen: normal bowel sounds, non tender, Gtube in place Neurologic: no motor/sensory deficits, alert, responsive Musculoskeletal: normal muscle bulk Last 24 Hour Vital Signs Date Time Temp Pulse Resp B/P (MAP) Pulse Ox O2 Delivery O2 Flow Rate FiO2 07/15/17 08:44 67 161/91 07/15/17 08:00 97.7 70 20 137/74 98 97.7 07/15/17 06:54 161/91 07/15/17 04:00 98.3 67 20 160/90 99 Room Air 98.3 07/15/17 00:00 98.5 71 20 154/77 99 Room Air 98.5 07/14/17 23:05 97.5 77 19 142/77 96 Room Air 97.5 07/14/17 21:34 77 142/77 07/14/17 19:45 98.7 80 19 145/89 100 Room Air 98.7 07/14/17 18:45 84 20 153/88 100 Room Air 07/14/17 18:43 153/88 07/14/17 18:00 80 16 180/96 100 Room Air 07/14/17 15:30 98.8 95 16 182/95 98 Room Air 98.8 07/14/17 15:27 98.8 96 16 180/90 98 Room Air 98.8 Intake and Output 07/14/17 07/15/17 19:00 07:00 Intake Total 0 ml 1000 ml Balance 0 ml 1000 ml Intake Oral 0 ml IV Total 1000 ml # Voids 2 Laboratory Tests Test 07/14/17 17:50 07/14/17 18:36 07/15/17 05:15 White Blood Count 5.9 K/UL (4.8-10.8) 5.3 K/UL (4.8-10.8) Red Blood Count 4.07 M/UL (4.70-6.10) L 3.44 M/UL (4.70-6.10) L Hemoglobin 13.1 G/DL (14.2-18.0) L 11.3 G/DL (14.2-18.0) L Hematocrit 39.6 % (42.0-52.0) L 33.4 % (42.0-52.0) L Mean Corpuscular Volume 97 FL (80-99) 97 FL (80-99) Mean Corpuscular Hemoglobin 32.1 PG (27.0-31.0) H 32.8 PG (27.0-31.0) H Mean Corpuscular Hemoglobin Concent 33.0 G/DL (32.0-36.0) 33.8 G/DL (32.0-36.0) Red Cell Distribution Width 13.6 % (11.6-14.8) 12.6 % (11.6-14.8) Platelet Count 100 K/UL (150-450) L 103 K/UL (150-450) L Mean Platelet Volume 10.1 FL (6.5-10.1) 10.1 FL (6.5-10.1) Neutrophils (%) (Auto) 49.6 % (45.0-75.0) 46.3 % (45.0-75.0) Lymphocytes (%) (Auto) 36.9 % (20.0-45.0) 40.7 % (20.0-45.0) Monocytes (%) (Auto) 7.5 % (1.0-10.0) 7.3 % (1.0-10.0) Eosinophils (%) (Auto) 4.6 % (0.0-3.0) H 4.9 % (0.0-3.0) H Basophils (%) (Auto) 1.4 % (0.0-2.0) 0.8 % (0.0-2.0) Prothrombin Time 10.2 SEC (9.30-11.50) Prothromb Time International Ratio 1.0 (0.9-1.1) Activated Partial Thromboplast Time 25 SEC (23-33) Sodium Level 141 MMOL/L (136-145) 143 MMOL/L (136-145) Potassium Level 4.2 MMOL/L (3.5-5.1) 4.1 MMOL/L (3.5-5.1) Chloride Level 106 MMOL/L (98-107) 109 MMOL/L (98-107) H Carbon Dioxide Level 30 MMOL/L (21-32) 25 MMOL/L (21-32) Anion Gap 5 mmol/L (5-15) 9 mmol/L (5-15) Blood Urea Nitrogen 29 mg/dL (7-18) H 26 mg/dL (7-18) H Creatinine 2.0 MG/DL (0.55-1.30) H 1.8 MG/DL (0.55-1.30) H Estimat Glomerular Filtration Rate mL/min (>60) mL/min (>60) Glucose Level 232 MG/DL (74-106) H 180 MG/DL (74-106) H Uric Acid 5.2 MG/DL (2.6-7.2) Calcium Level 8.2 MG/DL (8.5-10.1) L 7.9 MG/DL (8.5-10.1) L Total Bilirubin 0.5 MG/DL (0.2-1.0) 0.7 MG/DL (0.2-1.0) Aspartate Amino Transf (AST/SGOT) 15 U/L (15-37) 15 U/L (15-37) Alanine Aminotransferase (ALT/SGPT) 24 U/L (12-78) 23 U/L (12-78) Alkaline Phosphatase 121 U/L (46-116) H 104 U/L (46-116) Total Creatine Kinase 71 U/L (26-308) Total Protein 7.3 G/DL (6.4-8.2) 6.6 G/DL (6.4-8.2) Albumin 2.8 G/DL (3.4-5.0) L 2.5 G/DL (3.4-5.0) L Globulin 4.5 g/dL 4.1 g/dL Albumin/Globulin Ratio 0.6 (1.0-2.7) L 0.6 (1.0-2.7) L Lipase 119 U/L (73-393) Urine Color Yellow Urine Appearance Clear Urine pH 6 (4.5-8.0) Urine Specific [place] 1.015 (1.005-1.035) Urine Protein 4+ (NEGATIVE) H Urine Glucose (UA) 2+ (NEGATIVE) H Urine Ketones Negative (NEGATIVE) Urine Occult Blood 1+ (NEGATIVE) H Urine Nitrite Negative (NEGATIVE) Urine Bilirubin Negative (NEGATIVE) Urine Urobilinogen Normal MG/DL (0.0-1.0) Urine Leukocyte Esterase Negative (NEGATIVE) Urine RBC 0-2 /HPF (0 - 0) H Urine WBC 2-4 /HPF (0 - 0) Urine Squamous Epithelial Cells None /LPF (NONE/OCC) Urine Amorphous Sediment Few /LPF (NONE) H Urine Bacteria Few /HPF (NONE) Urine Fine Granular Casts 0-2 /LPF (NONE) H Urine Coarse Granular Casts 0-2 /LPF (NONE) H Urine Eosinophils None seen Urine Random Sodium 60 MEQ/L (20-110) Urine Potassium Timed 50 mmol/L (12-62) Triglycerides Level 52 MG/DL (30-150) Cholesterol Level 97 MG/DL (< 200) LDL Cholesterol 51 mg/dL (<100) HDL Cholesterol 45 MG/DL (40-60) Cholesterol/HDL Ratio 2.2 (3.3-4.4) L Height (Feet): 6 Height (Inches): 0.00 Weight (Pounds): 250 Medications Current Medications Medications (Trade) Dose Ordered Sig/Jethro Route PRN Reason Start Time Stop Time Status Last Admin Dose Admin Acetaminophen (Tylenol) 650 mg Q4H PRN ORAL T>100.5 07/14/17 19:15 08/13/17 19:14 Al Hydroxide/Mg Hydroxide (Mylanta II) 30 ml Q6H PRN ORAL dyspepsia 07/14/17 19:15 08/13/17 19:14 Allopurinol (Zyloprim) 100 mg DAILY ORAL 07/15/17 09:00 08/14/17 08:59 07/15/17 08:40 Atorvastatin Calcium (Lipitor) 80 mg BEDTIME ORAL 07/14/17 21:00 08/13/17 20:59 07/14/17 21:33 Carvedilol (Coreg) 3.125 mg Q12HR ORAL 07/14/17 21:00 08/13/17 20:59 07/15/17 08:44 Clonidine HCl (Catapres Tab) 0.1 mg Q6H PRN ORAL For High Blood Pressure 07/15/17 06:45 08/14/17 06:44 07/15/17 06:54 Dextrose (Dextrose 50%) STAT PRN IV Hypoglycemia 07/14/17 19:15 08/13/17 19:14 Heparin Sodium (Porcine) (Heparin 5000 units/ml) 5,000 units EVERY 12 HOURS SUBQ 07/14/17 21:00 08/13/17 20:59 07/15/17 08:45 Insulin Aspart (NovoLOG) BEFORE MEALS AND HS SUBQ 07/14/17 21:00 08/13/17 20:59 07/15/17 12:32 Insulin Detemir (Levemir) 34 units Q24H SUBQ 07/15/17 06:30 08/14/17 06:29 07/15/17 06:52 Lorazepam (Ativan 2mg/ml 1ml) 0.5 mg Q4H PRN IV For Anxiety 07/14/17 19:15 07/21/17 19:14 Morphine Sulfate (Morphine Sulfate) 1 mg Q4H PRN IVP Severe Pain (Pain Scale 7-10) 07/14/17 19:15 07/21/17 19:14 Ondansetron HCl (Zofran) 4 mg Q6H PRN IVP Nausea & Vomiting 07/14/17 19:15 08/13/17 19:14 Pantoprazole (Protonix) 40 mg DAILY ORAL 07/16/17 09:00 08/15/17 08:59 Polyethylene Glycol (Miralax) 17 gm HSPRN PRN ORAL Constipation 07/14/17 19:15 08/13/17 19:14 07/14/17 23:39 Zolpidem Tartrate (Ambien) 5 mg HSPRN PRN ORAL Insomnia 07/14/17 21:00 07/21/17 20:59 Assessment/Plan Problem List: (1) At high risk for aspiration ICD Codes: Z91.89 - Other specified personal risk factors, not elsewhere classified SNOMED: 271239324 (2) PEG (percutaneous endoscopic gastrostomy) adjustment/replacement/removal ICD Codes: Z43.1 - Encounter for attention to gastrostomy SNOMED: 892023048, 624311548 (3) Diabetes mellitus ICD Codes: E11.9 - Type 2 diabetes mellitus without complications SNOMED: 14359352 (4) Status post stroke ICD Codes: Z86.73 - Personal history of transient ischemic attack (TIA), and cerebral infarction without residual deficits SNOMED: 343009613 Assessment/Plan swallow study GI evaluation to remove gtube if appropiate, sliding scale nutrition evaluation dvt prophylaxis symptomatic treatment aspiration precaution. CLEIA PATEL Jul 15, 2017 14:20
--- NOTE | 2017-07-15 14:46 | Diagnostic Imaging Report ---
Indication: Abdominal pain Technique: Supine view of the abdomen Comparison: none Findings: There is a gastrostomy in place. Bowel gas pattern is unremarkable. No unusual masses or calcifications. Surgical clips are seen in the right side of the pelvis Impression: No acute process This agrees with the preliminary interpretation provided by the emergency room physician
[2017-07-15 16:00] VITALS: BP 146/79
--- NOTE | 2017-07-15 16:33 | Diagnostic Imaging Report ---
Indication: Abnormal renal function tests, bilateral flank pain Technique: Grayscale and duplex images of the kidneys, retroperitoneum, and bladder Comparison: none Findings: Right kidney measures 10.6 cm in length. Left kidney measures 11.3 cm in length. Both kidneys demonstrate normal echogenicity. There is a 12 mm cyst in the right renal sinus. No other focal abnormality demonstrated. Bladder volume measures 2 91 mL prevoid. Patient was unable to void Impression: Negative for hydronephrosis 291 mL bladder volume, with inability to void Incidental finding of right renal cyst
--- NOTE | 2017-07-15 17:16 | Nephrology Progress Note ---
Assessment/Plan Problem List: (1) Hyperglycemia (2) Glaucoma (3) Renal insufficiency (4) Status post stroke (5) PEG (percutaneous endoscopic gastrostomy) adjustment/replacement/removal (6) Diabetes mellitus Plan Consult dictated # [id number] Subjective Constitutional: Denies: no symptoms, chills, diaphoresis, fever, malaise, weakness, other HEENT: Denies: no symptoms, eye pain, blurred vision, tearing, double vision, ear pain, ear discharge, nose pain, nose congestion, throat pain, throat swelling, mouth pain, mouth swelling, other Genitourinary: Denies: no symptoms, burning, discharge, frequency, flank pain, hematuria, incontinence, pain, urgency, other Neurologic/Psychiatric: Denies: no symptoms, anxiety, depressed, emotional problems, headache, numbness, paresthesia, pre-existing deficit, seizure, tingling, tremors, weakness, other Subjective In bed, in no apparent distress Objective Objective Last 24 Hour Vital Signs Date Time Temp Pulse Resp B/P (MAP) Pulse Ox O2 Delivery O2 Flow Rate FiO2 07/15/17 16:00 97.5 58 20 146/79 99 97.5 07/15/17 08:44 67 161/91 07/15/17 08:00 97.7 70 20 137/74 98 97.7 07/15/17 06:54 161/91 07/15/17 04:00 98.3 67 20 160/90 99 Room Air 98.3 07/15/17 00:00 98.5 71 20 154/77 99 Room Air 98.5 07/14/17 23:05 97.5 77 19 142/77 96 Room Air 97.5 07/14/17 21:34 77 142/77 07/14/17 19:45 98.7 80 19 145/89 100 Room Air 98.7 07/14/17 18:45 84 20 153/88 100 Room Air 07/14/17 18:43 153/88 07/14/17 18:00 80 16 180/96 100 Room Air Intake and Output 07/14/17 07/15/17 19:00 07:00 Intake Total 0 ml 1000 ml Balance 0 ml 1000 ml Intake Oral 0 ml IV Total 1000 ml # Voids 2 Laboratory Tests 07/14/17 17:50: White Blood Count 5.9, Red Blood Count 4.07L, Hemoglobin 13.1L, Hematocrit 39.6L , Mean Corpuscular Volume 97, Mean Corpuscular Hemoglobin 32.1H, Mean Corpuscular Hemoglobin Concent 33.0, Red Cell Distribution Width 13.6, Platelet Count 100L, Mean Platelet Volume 10.1, Neutrophils (%) (Auto) 49.6, Lymphocytes (%) (Auto) 36.9, Monocytes (%) (Auto) 7.5, Eosinophils (%) (Auto) 4.6H, Basophils (%) (Auto) 1.4, Prothrombin Time 10.2, Prothromb Time International Ratio 1.0, Activated Partial Thromboplast Time 25, Sodium Level 141, Potassium Level 4.2, Chloride Level 106, Carbon Dioxide Level 30, Anion Gap 5, Blood Urea Nitrogen 29H, Creatinine 2.0H, Estimat Glomerular Filtration Rate , Glucose Level 232H, Uric Acid 5.2, Calcium Level 8.2L, Total Bilirubin 0.5, Aspartate Amino Transf (AST/SGOT) 15, Alanine Aminotransferase (ALT/SGPT) 24, Alkaline Phosphatase 121H, Total Creatine Kinase 71, Total Protein 7.3, Albumin 2.8L, Globulin 4.5, Albumin/Globulin Ratio 0.6L, Lipase 119 07/14/17 18:36: Urine Color Yellow, Urine Appearance Clear, Urine pH 6, Urine Specific [place] 1.015, Urine Protein 4+H, Urine Glucose (UA) 2+H, Urine Ketones Negative, Urine Occult Blood 1+H, Urine Nitrite Negative, Urine Bilirubin Negative, Urine Urobilinogen Normal, Urine Leukocyte Esterase Negative, Urine RBC 0-2H, Urine WBC 2-4, Urine Squamous Epithelial Cells None, Urine Amorphous Sediment FewH, Urine Bacteria Few, Urine Fine Granular Casts 0-2H, Urine Coarse Granular Casts 0-2H, Urine Eosinophils None seen, Urine Random Sodium 60, Urine Potassium Timed 50 07/15/17 05:15: White Blood Count 5.3, Red Blood Count 3.44L, Hemoglobin 11.3L, Hematocrit 33.4L , Mean Corpuscular Volume 97, Mean Corpuscular Hemoglobin 32.8H, Mean Corpuscular Hemoglobin Concent 33.8, Red Cell Distribution Width 12.6, Platelet Count 103L, Mean Platelet Volume 10.1, Neutrophils (%) (Auto) 46.3, Lymphocytes (%) (Auto) 40.7, Monocytes (%) (Auto) 7.3, Eosinophils (%) (Auto) 4.9H, Basophils (%) (Auto) 0.8, Sodium Level 143, Potassium Level 4.1, Chloride Level 109H, Carbon Dioxide Level 25, Anion Gap 9, Blood Urea Nitrogen 26H, Creatinine 1.8H, Estimat Glomerular Filtration Rate , Glucose Level 180H, Calcium Level 7.9L, Total Bilirubin 0.7, Aspartate Amino Transf (AST/SGOT) 15, Alanine Aminotransferase (ALT/SGPT) 23, Alkaline Phosphatase 104, Total Protein 6.6, Albumin 2.5L, Globulin 4.1, Albumin/Globulin Ratio 0.6L, Triglycerides Level 52 , Cholesterol Level 97, LDL Cholesterol 51, HDL Cholesterol 45, Cholesterol/HDL Ratio 2.2L Height (Feet): 6 Height (Inches): 0.00 Weight (Pounds): 250 General Appearance: no apparent distress EENT: normal ENT inspection Neck: normal alignment, supple Cardiovascular: normal rate, regular rhythm Respiratory/Chest: normal breath sounds, no respiratory distress Abdomen: non tender, soft, distended Extremities: non-tender Neurologic: responsive Sissy Romero N.P. Jul 15, 2017 17:16
[2017-07-15 20:00] VITALS: BP 170/82
--- NOTE | 2017-07-15 23:30 | History and Physical Report ---
DATE OF ADMISSION: 07/14/2017 APPROXIMATE TIME: At 12 noon. CONSULTANTS: 1. Dieter Hwang M.D. 2. Jaspreet Leung M.D. CHIEF COMPLAINT: Confusion, here for possible G-tube removal. BRIEF HISTORY: The patient is a 72-year-old male from [facility] presented with the above-mentioned diagnosis. The patient had been eating better and wanted his G-tube removed. The patient came to [place], diagnosed with above, admitted to medical floor for further treatment. Currently, calm in bed, confused, not talking much. PAST MEDICAL HISTORY: Diabetes, failure to thrive, , anemia, renal insufficiency, and glaucoma. PAST SURGICAL HISTORY: G-tube. MEDICATIONS: Include Protonix, Zyloprim, Levemir, Lipitor, Coreg, Ambien, NovoLog, heparin, Tylenol, and morphine. ALLERGIES: Denies. SOCIAL HISTORY: No smoking. No alcohol. No intravenous drug abuse. FAMILY HISTORY: Noncontributory. REVIEW OF SYSTEMS: Unavailable. PHYSICAL EXAMINATION: GENERAL: Calm in bed, oriented x1, in no acute distress. VITAL SIGNS: Temperature is 97, pulse 70, respirations 20, and blood pressure 137/74. CARDIOVASCULAR: No murmur. LUNGS: Distant and clear. ABDOMEN: Bowel sounds positive. Nontender. Nondistended. G-tube in place. EXTREMITIES: No cyanosis, clubbing, or edema. NEUROLOGIC: The patient moves all extremities, slightly weak. LABORATORY DATA: Hemoglobin 11.3 and platelets 103, otherwise CBC is normal. BMP shows chloride 109, BUN and creatinine 26 and 1.8, glucose 180. INR is 1.0 and PTT is 25. Urinalysis, 1+ occult blood, 4+ protein, 3+ glucose, otherwise normal. ASSESSMENT: 1. History of failure to thrive. 2. Gastrostomy tube removal. 3. Diabetes. 4. Cerebrovascular accident. 5. Anemia. 6. Renal insufficiency. 7. Glaucoma. PLAN: Continue premeds. OT/PT, dietary evaluation, swallow evaluation, removal of G-tube is indicated, blood pressure and blood sugar control. Dr. Hwang, Dr. Leung, Dr. Laureano, and Dr. Mon to consult. We will continue to follow the patient medically. Benji Springer D.O. DR: Shante JOB#: [id number] CC:
[2017-07-15] MEDS: Atorvastatin 80mg tab ORAL SCH (23:55)
[2017-07-16] VITALS: BP 148/97
--- NOTE | 2017-07-16 01:15 | Consultation ---
DATE OF CONSULTATION: 07/15/2017 NEPHROLOGY CONSULTATION CONSULTING PHYSICIAN: Arcadio Lauraeno M.D. REFERRING PHYSICIAN: Benji Springer D.O. REASON FOR CONSULTATION: Acute renal failure on chronic kidney disease. HISTORY OF PRESENT ILLNESS: May I mention that the patient is a very poor historian and seems to be mildly agitated at this time. Therefore, history could not be obtained directly from him, rather was obtained from previous consults and medical records. According to records, the patient was brought in here for PEG tube removal. Apparently, the patient can eat without difficulty. PEG tube was placed in after the patient had CVA with dysphagia. He is lying in bed at this time in no apparent distress. Denies any discomfort at this time. PAST MEDICAL HISTORY: Significant for CVA, dysphagia, diabetes, glaucoma, and hypertension. SOCIAL HISTORY: The patient is a care home resident. No history of smoking, alcohol use, or illicit drug use. ALLERGIES: He has no known allergies. OUTPATIENT MEDICATIONS: Include acetaminophen 650 mg p.o. q.6 h. p.r.n., allopurinol 100 mg p.o. daily, pravastatin 80 mg p.o. daily at bedtime, carvedilol 3.125 mg p.o. b.i.d., docusate 200 mg p.o. daily, Pepcid 20 mg p.o. b.i.d., ferrous sulfate 325 mg p.o. daily, Levemir 44 units subcutaneous before breakfast, Novolin R with sliding scale, multivitamin tablet one p.o. daily. REVIEW OF SYSTEMS: Limited at this time due to the patient's mental status. PHYSICAL EXAMINATION: GENERAL: This is an elderly male, in no apparent distress. VITAL SIGNS: Blood pressure 146/79, heart rate is 58, respiratory rate 20, temperature is 97.5 degrees, O2 saturation is 99% on room air. HEENT: Head is normocephalic and atraumatic. NECK: Supple. No JVD noted. Trachea midline. LUNGS: Clear to auscultation bilaterally. CARDIOVASCULAR: Regular rate and rhythm. ABDOMEN: Soft. Mildly distended. G-tube removal site covered with gauze. No drainage noted at this time. EXTREMITIES: No edema, no cyanosis, and no clubbing. LABORATORY DATA: CBC, white count 5.3, hemoglobin 11.3, hematocrit 33.4, platelet count of 103,000. BMP, sodium 143, potassium 4.1, chloride 109, bicarbonate 25, BUN 26, creatinine 1.8, and blood glucose of 180. RADIOLOGIC FINDINGS: Renal ultrasound, impression, negative for hydronephrosis and right renal cyst, 291 mL bladder volume with inability to void. Abdominal x-ray, impression, no acute process. ASSESSMENT: 1. Acute renal failure on chronic kidney disease. 2. Renal cyst. 3. Hyperlipidemia. 4. Status post CVA. 5. PEG tube removal. 6. Diabetes. 7. Hypertension. PLAN: Agree with current treatment plan. We will monitor renal function and avoid nephrotoxins. Monitor electrolytes and correct as needed. Continue home medications as well. Monitor the patient's neurological status. Pain management as needed. We will obtain a bladder scan as well. We will monitor the patient's overall response to treatment and make recommendations as necessary. Thank you, Dr. Springer, for allowing us to participate in the care of this patient. Arcadio Laureano M.D. Sissy Romero DR: Rica JOB#: [id number] CC: SANCHEZ
[2017-07-16 04:00] VITALS: BP 157/102
[2017-07-16] MEDS: NovoLOG Insulin Flexpen SUBQ SCH ×3 (06:30→11:30)
[2017-07-16] MEDS: Levemir Flexpen SUBQ SCH (07:41)
[2017-07-16 08:00] VITALS: BP 145/89
--- NOTE | 2017-07-16 08:27 | General Progress Note ---
Assessment/Plan Problem List: (1) Glaucoma ICD Codes: H40.9 - Unspecified glaucoma SNOMED: 44633443 Qualifiers: Qualified Codes: H40.9 - Unspecified glaucoma (2) Renal insufficiency ICD Codes: N28.9 - Disorder of kidney and ureter, unspecified SNOMED: 806148852, 445240056 (3) Status post stroke ICD Codes: Z86.73 - Personal history of transient ischemic attack (TIA), and cerebral infarction without residual deficits SNOMED: 968230568 (4) Anemia ICD Codes: D64.9 - Anemia, unspecified SNOMED: 013649003 (5) PEG (percutaneous endoscopic gastrostomy) adjustment/replacement/removal ICD Codes: Z43.1 - Encounter for attention to gastrostomy SNOMED: 487798776, 696263333 Status: stable, progressing, tolerating diet Assessment/Plan dc if clear by gi Subjective Constitutional: Reports: weakness Allergies: Coded Allergies: No Known Allergies (Unverified , 07/14/17) All Systems: reviewed and negative except above Subjective calm in bed, gtube removed Objective Last 24 Hour Vital Signs Date Time Temp Pulse Resp B/P (MAP) Pulse Ox O2 Delivery O2 Flow Rate FiO2 07/16/17 04:00 97.9 68 19 157/102 98 97.9 07/16/17 00:00 97.7 70 18 148/97 97 97.7 07/15/17 23:56 70 148/97 07/15/17 20:00 98.3 75 19 170/82 97 98.3 07/15/17 16:00 97.5 58 20 146/79 99 97.5 07/15/17 08:44 67 161/91 Intake and Output 07/15/17 07/16/17 19:00 07:00 Intake Total 660 ml 120 ml Output Total 375 ml Balance 660 ml -255 ml Intake Oral 660 ml 120 ml Output Urine Total 375 ml # Voids 1 2 # Bowel Movements 1 Laboratory Tests 07/16/17 00:00: Stool Occult Blood [Pending] Height (Feet): 6 Height (Inches): 0.00 Weight (Pounds): 250 General Appearance: lethargic EENT: normal ENT inspection Neck: normal alignment Cardiovascular: normal peripheral pulses, normal rate, regular rhythm Respiratory/Chest: chest wall non-tender, lungs clear, normal breath sounds Abdomen: normal bowel sounds, non tender, soft Extremities: normal inspection Edema: no edema noted Arm (L), no edema noted Arm (R), no edema noted Leg (L), no edema noted Leg (R), no edema noted Pedal (L), no edema noted Pedal (R), no edema noted Generalized Neurologic: responsive, motor weakness Skin: normal pigmentation, warm/dry NATHALIA SHAH Jul 16, 2017 08:27
[2017-07-16] MEDS: Allopurinol 100mg Tab ORAL SCH (08:38)
[2017-07-16] MEDS: Heparin 5000 units/ml inj SUBQ SCH ×2 (08:41)
--- NOTE | 2017-07-16 09:37 | Pulmonology Progress Note ---
Assessment/Plan Problems: (1) Diabetes mellitus (2) At high risk for aspiration (3) Hyperglycemia (4) Renal insufficiency (5) PEG (percutaneous endoscopic gastrostomy) adjustment/replacement/removal (6) Status post stroke Assessment/Plan passed swallow study gtube removed. iv fluids, check electrolytes renal w/u check electrolytes dvt prophylaxis. dc planning to today Subjective ROS Limited/Unobtainable: No Constitutional: Reports: no symptoms HEENT: Repors: no symptoms Respiratory: Reports: no symptoms Allergies: Coded Allergies: No Known Allergies (Unverified , 07/14/17) Objective Last 24 Hour Vital Signs Date Time Temp Pulse Resp B/P (MAP) Pulse Ox O2 Delivery O2 Flow Rate FiO2 07/16/17 08:38 71 145/89 07/16/17 08:00 97.5 71 20 145/89 99 97.5 07/16/17 04:00 97.9 68 19 157/102 98 97.9 07/16/17 00:00 97.7 70 18 148/97 97 97.7 07/15/17 23:56 70 148/97 07/15/17 20:00 98.3 75 19 170/82 97 98.3 07/15/17 16:00 97.5 58 20 146/79 99 97.5 Intake and Output 07/15/17 07/16/17 19:00 07:00 Intake Total 660 ml 120 ml Output Total 375 ml Balance 660 ml -255 ml Intake Oral 660 ml 120 ml Output Urine Total 375 ml # Voids 1 2 # Bowel Movements 1 Objective General Appearance: no apparent distress, awake, not communicating Lines, tubes and drains: peripheral HEENT: normocephalic, atraumatic, anicteric Neck: non-tender, supple Respiratory/Chest: decreased breath sounds Cardiovascular/Chest: normal rate, regular rhythm - SR with PVC Abdomen: normal bowel sounds, non tender, Gtube in place Neurologic: no motor/sensory deficits, alert, responsive Musculoskeletal: normal muscle bulk Laboratory Tests 07/16/17 00:00: Stool Occult Blood [Pending] Current Medications Medications (Trade) Dose Ordered Sig/Jethro Route PRN Reason Start Time Stop Time Status Last Admin Dose Admin Acetaminophen (Tylenol) 650 mg Q4H PRN ORAL T>100.5 07/14/17 19:15 08/13/17 19:14 Al Hydroxide/Mg Hydroxide (Mylanta II) 30 ml Q6H PRN ORAL dyspepsia 07/14/17 19:15 08/13/17 19:14 Allopurinol (Zyloprim) 100 mg DAILY ORAL 07/15/17 09:00 08/14/17 08:59 07/16/17 08:38 Atorvastatin Calcium (Lipitor) 80 mg BEDTIME ORAL 07/14/17 21:00 08/13/17 20:59 07/15/17 23:55 Carvedilol (Coreg) 3.125 mg Q12HR ORAL 07/14/17 21:00 08/13/17 20:59 07/16/17 08:38 Clonidine HCl (Catapres Tab) 0.1 mg Q6H PRN ORAL For High Blood Pressure 07/15/17 06:45 08/14/17 06:44 07/15/17 06:54 Dextrose (Dextrose 50%) STAT PRN IV Hypoglycemia 07/14/17 19:15 08/13/17 19:14 Heparin Sodium (Porcine) (Heparin 5000 units/ml) 5,000 units EVERY 12 HOURS SUBQ 07/14/17 21:00 08/13/17 20:59 07/16/17 08:41 Insulin Aspart (NovoLOG) BEFORE MEALS AND HS SUBQ 07/14/17 21:00 08/13/17 20:59 07/16/17 00:00 Insulin Detemir (Levemir) 34 units Q24H SUBQ 07/15/17 06:30 08/14/17 06:29 07/16/17 07:41 Lorazepam (Ativan 2mg/ml 1ml) 0.5 mg Q4H PRN IV For Anxiety 07/14/17 19:15 07/21/17 19:14 Morphine Sulfate (Morphine Sulfate) 1 mg Q4H PRN IVP Severe Pain (Pain Scale 7-10) 07/14/17 19:15 07/21/17 19:14 Ondansetron HCl (Zofran) 4 mg Q6H PRN IVP Nausea & Vomiting 07/14/17 19:15 08/13/17 19:14 Pantoprazole (Protonix) 40 mg DAILY ORAL 07/16/17 09:00 08/15/17 08:59 07/16/17 08:38 Polyethylene Glycol (Miralax) 17 gm HSPRN PRN ORAL Constipation 07/14/17 19:15 08/13/17 19:14 07/14/17 23:39 Zolpidem Tartrate (Ambien) 5 mg HSPRN PRN ORAL Insomnia 07/14/17 21:00 07/21/17 20:59 CELIA PATEL Jul 16, 2017 09:36
[2017-07-16 12:00] VITALS: BP 165/87
--- NOTE | 2017-07-16 18:05 | General Progress Note ---
Assessment/Plan Assessment/Plan Assessment (1) Anemia (2) PEG (percutaneous endoscopic gastrostomy) adjustment/replacement/removal (3) Hyperglycemia Recommendations ST evaluation DM management anemia work up monitor H&H, prn transfusions bowel regime ppi fu labs Subjective Allergies: Coded Allergies: No Known Allergies (Unverified , 07/14/17) Subjective Feels OK no abdominal pain Objective Last 24 Hour Vital Signs Date Time Temp Pulse Resp B/P (MAP) Pulse Ox O2 Delivery O2 Flow Rate FiO2 07/16/17 12:00 97.4 70 20 165/87 98 97.4 07/16/17 11:44 161/82 07/16/17 08:38 71 145/89 07/16/17 08:00 97.5 71 20 145/89 99 97.5 07/16/17 04:00 97.9 68 19 157/102 98 97.9 07/16/17 00:00 97.7 70 18 148/97 97 97.7 07/15/17 23:56 70 148/97 07/15/17 20:00 98.3 75 19 170/82 97 98.3 Intake and Output 07/15/17 07/16/17 19:00 07:00 Intake Total 660 ml 120 ml Output Total 375 ml Balance 660 ml -255 ml Intake Oral 660 ml 120 ml Output Urine Total 375 ml # Voids 1 2 # Bowel Movements 1 Laboratory Tests 07/16/17 00:00: Stool Occult Blood Negative Height (Feet): 6 Height (Inches): 0.00 Weight (Pounds): 250 Objective WDWN AA man NCAT neck supple CTA RRR Soft, GT site OK no edema non focal ROBERT GOSS Jul 16, 2017 18:05
--- NOTE | 2017-07-17 15:13 | Cardiology Report ---
APPROVED REPORT EKG Measurement Heart [id number] [place] [id number] Normal sinus rhythm Left axis deviation Incomplete right bundle branch block Minimal voltage criteria for LVH, may be normal variant Inferior infarct, age undetermined Anterolateral infarct, age undetermined Abnormal ECG
--- NOTE | 2017-07-18 12:20 | Discharge Summary ---
Discharge Summary Hospital Course Date of Admission Jul 14, 2017 at 17:50 Date of Discharge Jul 16, 2017 at 13:26 Admitting Diagnosis g-tube evaluation HPI Luis Bradley is a 72 year old male who was admitted on Jul 14, 2017 at 17:50 for G-Tube Evaluation Hospital Course dc summary #[id number] Discharge Medications Continued Medications: Acetaminophen* (Acetaminophen 325MG Tablet*) 325 Mg Tablet 650 MG ORAL Q6H PRN for Mild Pain/Temp > 100.5 MDD 3GM, TAB Allopurinol* (Allopurinol*) 100 Mg Tablet 100 MG ORAL DAILY, TAB Atorvastatin Calcium* (Lipitor*) 80 Mg Tablet 80 MG ORAL BEDTIME, TAB Carvedilol* (Carvedilol*) 3.125 Mg Tablet 3.125 MG ORAL BID, TAB Take with food. Hold if SBP <110 or HR <60 Docusate Sodium* (Docusate Sodium*) 100 Mg Capsule 200 MG ORAL DAILY, CAP Famotidine (Pepcid) 20 Mg Tablet 20 MG ORAL BID, #7 TAB 0 Refills Ferrous Sulfate* (Ferrous Sulfate*) 325 Mg Tablet 325 MG ORAL DAILY, #30 TAB 0 Refills Insulin Detemir (Levemir) 100 Unit/1 Ml Vial 44 UNITS SUBQ ACBREAKFAST, VIAL Hold if BG <100 Insulin Regular, Human* (Novolin R*) 100 Unit/1 Ml Vial 0 SUBQ .SLIDING SCALE, UNITS If 151-200 = 2 units; 201-250 = 4 units; 251-300 = 6 units; 301-350 = 8 units; 351-400 = 10 units, SQ before meals and at bedtime. Finger stick blood sugar monitoring Q6Hrs, if >400, give 12 units and call Multivitamin With Minerals (Multivitamins With Minerals*) 1 Each Tablet 1 TAB ORAL DAILY, TAB Discharge Condition Upon Discharge: stable Discharge Disposition Patient was discharged to SNF Discharge Diagnoses: Discharge Instructions Discharge Instructions Special Instructions I have been assigned to complete a D/C Summary on this account. I was not involved in the patient management Stella Barrios NP (Vanchtein) Jul 18, 2017 12:20
--- NOTE | 2017-07-18 14:28 | Diagnostic Imaging Report ---
Indication: Dysphasia Procedure and findings: Real-time fluoroscopic imaging performed in a lateral projection in conjunction with the speech pathologist evaluation. Variable consistencies of barium given per mouth. Findings: Significant abnormalities of both oral and pharyngeal phases of swallowing are demonstrated. Total fluoroscopic time 272 seconds. Trace laryngeal penetration noted. No definite aspiration appreciated. Abnormal video swallow. Please refer to speech pathology evaluation for more information.
--- NOTE | 2017-07-19 05:45 | Discharge Summary 2 SIG ---
DATE OF ADMISSION: 07/14/2017 DATE OF DISCHARGE: 07/16/2017 REASON FOR ADMISSION: A 72-year-old male with a history of CVA, dysphagia, status post G-tube placement due to aspiration, presented from the [facility] for G-tube evaluation and possible removal. Apparently, the patient was able to eat and passed preliminary swallow evaluation in the [facility] facility. Upon evaluation in the emergency department, vital signs were stable, elevated glucose -232 with a history of diabetes mellitus, and also noted renal failure with BUN -29 and creatinine -2.0. The patient admitted with G-tube evaluation, status post CVA, renal insufficiency, diabetes, and hypertension. HOSPITAL COURSE: The patient admitted. GI and Nephrology evaluations were requested. The patient undergone bedside and video swallow evaluations. The patient demonstrated no aspiration on the video swallow evaluation. Diet started as per speech therapy recommendation. G-tube subsequently was removed. Site care was provided. Blood pressure was managed with current regimen and remained stable. Blood sugar was managed with a sliding scale of insulin. Hemoglobin and hematocrit were closely monitored and remained at the baseline, no need for transfusion. Bowel regimen instituted. PPI added to existing regimen. DVT prophylaxis provided. Hemoglobin prior to discharge -11.3 and hematocrit- 33.4. Stool OB negative. Occupational Ther seen and evaluated the patient and diagnosed him with acute on chronic renal failure. Renal ultrasound revealed no hydronephrosis. With IV hydration, creatinine down to 1.8. Renal parameters and electrolytes were closely monitored. Electrolytes replaced as needed. Nephrotoxics were avoided. Statin was continued. The patient was stable for discharge to the [facility] facility. Follow up with renal function test and avoid nephrotoxics. FINAL DIAGNOSES: 1. Gastrostomy tube evaluation, status post removal. 2. Status post cerebrovascular accident. 3. Acute on chronic renal failure. 4. Hypertension. 5. Diabetes. 6. Hyperlipidemia. 7. Anemia. DISCHARGE MEDICATIONS: See medication reconciliation list. DISCHARGE INSTRUCTIONS: The patient was discharged to [facility]. Follow up with medical doctor at the facility. Closely monitor renal parameters. Benji Springer D.O. I have been assigned to dictate discharge summary on this account and I was not involved in the patient's management. Stella ThorntonTheron lund DR: Benjamin JOB#: [id number] CC: SANCHEZ
== END 2017-07-16 13:26 | DRG 394 ==
LOC: EDBD 15:10 → EMR 17:00 → 4E 17:50 → EDBEDREQ 18:31
PROC: 0DP6XUZ Removal of Feeding Device from Stomach, External Approach (ICD-10-PCS; principal; 2017-07-15)
DX: Z43.1 Encounter for attention to gastrostomy (principal); N17.9 Acute kidney failure, unspecified; E11.22 Type 2 diabetes mellitus with diabetic chronic kidney disease; E11.65 Type 2 diabetes mellitus with hyperglycemia; D64.9 Anemia, unspecified; H40.9 Unspecified glaucoma; Z86.73 Personal history of transient ischemic attack (TIA), and cerebral infarction without residual deficits; Z79.4 Long term (current) use of insulin; I12.9 Hypertensive chronic kidney disease with stage 1 through stage 4 chronic kidney disease, or unspecified chronic kidney disease; N18.9 Chronic kidney disease, unspecified; E78.5 Hyperlipidemia, unspecified; N28.1 Cyst of kidney, acquired
CPT/HCPCS: 36415; 74018; 74230; 76770; 76775; 80053; 80061; 81003; 82270; 82550; 82962; 83690; 84133; 84300; 84550; 85025; 85610; 85730; 87081; 89050; 93005; 99285; J1815; S5561

== ENCOUNTER 2019-01-26 21:49 | Inpatient (IN) | payer MEDICARE, OTHER ==
[~2019-01-26] VITALS: Ht 190.5 cm; Wt 83.5 kg
[~2019-01-26 21:49] MED LIST: ACETAMINOPHEN325 M1 ORAL; ALLOPURINOL100 M1 ORAL; ATORVASTATIN CA80 MG ORAL; CARVEDILOL3.125 MG ORAL; DOCUSATE SODIU100 MG ORAL; FERROUS SULFAT325 MG ORAL; LEVEMIR100 UNIT/1 SUBQ; MULTIVITAMINS1 EAC8 ORAL; NOVOLIN R100 UNIT/1 SUBQ; PEPCID20 MG ORAL
[2019-01-26 22:10] VITALS: BP 182/88
--- NOTE | 2019-01-26 22:10 | NUR ---
ED Nurse Note: Patient was BIBA from [facility] due to syncopy episode. Per SNF stuff he was unconscious for 1 min on his wheelchair. Patient presented calm, AAO x3, VSS at this time, skin is warm to touch. Patient has preassure ulcer on his sacral area stage 1. Pictures will be taken and send down.
--- NOTE | 2019-01-26 22:17 | Emergency Room Report ---
History of Present Illness General Chief Complaint: Syncope Source: Patient, Medical Record, EMS Present Illness HPI Patient is a 73-year-old male sent in from nursing facility after possible syncopal episode. Patient denies any current pain. He had prior history of CVA. Episode occurred approximately 3 hours prior to arrival. He denies any symptoms prior to episode. He states he was not having any preceding symptoms. History is limited by patient being a poor historian. Allergies: Coded Allergies: No Known Allergies (Unverified , 07/14/17) Patient History Past Medical History: see triage record Reviewed Nursing Documentation: PMH: Agreed; PSxH: Agreed Nursing Documentation-PMH Hx Hypertension: Yes Hx Diabetes: Yes Hx Cancer: No Hx Gastrointestinal Problems: Yes Hx Cerebrovascular Accident: Yes Review of Systems All Other Systems: limited - by mental status Physical Exam Vital Signs Date Time Temp Pulse Resp B/P (MAP) Pulse Ox O2 Delivery O2 Flow Rate FiO2 01/26/19 21:53 97.5 70 16 182/88 (119) 96 Room Air Sp02 EP Interpretation: reviewed, normal General Appearance: alert, GCS 15, Chronically Ill Head: atraumatic 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 ENT: normal ENT inspection, hearing grossly normal, normal voice Neck: normal inspection, supple, no bony tend, limited range of motion Respiratory: normal inspection, lungs clear, normal breath sounds, no respiratory distress, no retraction, no wheezing Cardiovascular #1: regular rate, rhythm, no edema Gastrointestinal: normal inspection, normal bowel sounds, non tender, soft, no guarding, no hernia Genitourinary: no CVA tenderness Musculoskeletal: normal inspection, back normal, normal range of motion Neurologic: normal inspection, alert, responsive, speech normal Psychiatric: judgement/insight normal, other - slow speech Medical Decision Making Diagnostic Impression: Primary Impression: Syncope Additional Impressions: Anemia Diabetes mellitus ER Course Patient presented for syncope. Differential diagnosis included but was not limited to arrhythmia, orthostatic hypotension, hypovolemia, vasovagal, anemia among others. Because of complexity of patient's case laboratory tests and imaging studies were ordered. Patient noted to have syncopal episode. He had prior history of CVA in the past. EKG interpreted by me showed normal sinus rhythm with a rate of [address] or T wave changes noted. There is some prolongation of the QT interval. Patient was started on IV hydration.Dr. Benji Springer was contacted for inpatient management due to acute kidney injury Labs Test 01/26/19 22:30 01/26/19 22:49 01/26/19 22:55 White Blood Count 5.2 K/UL (4.8-10.8) Red Blood Count 3.05 M/UL (4.70-6.10) Hemoglobin 9.9 G/DL (14.2-18.0) Hematocrit 28.7 % (42.0-52.0) Mean Corpuscular Volume 94 FL (80-99) Mean Corpuscular Hemoglobin 32.5 PG (27.0-31.0) Mean Corpuscular Hemoglobin Concent 34.5 G/DL (32.0-36.0) Red Cell Distribution Width 12.7 % (11.6-14.8) Platelet Count 92 K/UL (150-450) Mean Platelet Volume 7.7 FL (6.5-10.1) Neutrophils (%) (Auto) % (45.0-75.0) Lymphocytes (%) (Auto) % (20.0-45.0) Monocytes (%) (Auto) % (1.0-10.0) Eosinophils (%) (Auto) % (0.0-3.0) Basophils (%) (Auto) % (0.0-2.0) Prothrombin Time 10.4 SEC (9.30-11.50) Prothromb Time International Ratio 1.0 (0.9-1.1) Activated Partial Thromboplast Time 27 SEC (23-33) Sodium Level 145 MMOL/L (136-145) Potassium Level 4.9 MMOL/L (3.5-5.1) Chloride Level 111 MMOL/L (98-107) Carbon Dioxide Level 27 MMOL/L (21-32) Anion Gap 7 mmol/L (5-15) Blood Urea Nitrogen 40 mg/dL (7-18) Creatinine 2.9 MG/DL (0.55-1.30) Estimat Glomerular Filtration Rate mL/min (>60) Glucose Level 233 MG/DL (74-106) Calcium Level 8.2 MG/DL (8.5-10.1) Phosphorus Level 3.7 MG/DL (2.5-4.9) Magnesium Level 1.8 MG/DL (1.8-2.4) Total Bilirubin 0.5 MG/DL (0.2-1.0) Aspartate Amino Transf (AST/SGOT) 11 U/L (15-37) Alanine Aminotransferase (ALT/SGPT) 11 U/L (12-78) Alkaline Phosphatase 82 U/L (46-116) Total Creatine Kinase 31 U/L (26-308) Creatine Kinase MB 1.3 NG/ML (0.0-3.6) Creatine Kinase MB Relative Index 4.1 Troponin I 0.022 ng/mL (0.000-0.056) Pro-B-Type Natriuretic Peptide 3065 pg/mL (0-125) Total Protein 6.8 G/DL (6.4-8.2) Albumin 2.7 G/DL (3.4-5.0) Globulin 4.1 g/dL Albumin/Globulin Ratio 0.7 (1.0-2.7) Lactic Acid Level 1.40 mmol/L (0.4-2.0) Urine Color Pale yellow Urine Appearance Slightly cloudy Urine pH 5 (4.5-8.0) Urine Specific Cleves 1.015 (1.005-1.035) Urine Protein 3+ (NEGATIVE) Urine Glucose (UA) 1+ (NEGATIVE) Urine Ketones Negative (NEGATIVE) Urine Blood 3+ (NEGATIVE) Urine Nitrite Negative (NEGATIVE) Urine Bilirubin Negative (NEGATIVE) Urine Urobilinogen Normal MG/DL (0.0-1.0) Urine Leukocyte Esterase Negative (NEGATIVE) Urine RBC 5-10 /HPF (0 - 0) Urine WBC 0-2 /HPF (0 - 0) Urine Squamous Epithelial Cells Occasional /LPF Urine Amorphous Sediment Many /LPF (NONE) Urine Bacteria Occasional /HPF (NONE) EKG Diagnostic Results Rate: normal Rhythm: NSR ST Segments: no acute changes Last Vital Signs Date Time Temp Pulse Resp B/P (MAP) Pulse Ox O2 Delivery O2 Flow Rate FiO2 01/26/19 21:53 97.5 70 16 182/88 (119) 96 Room Air Status: improved Disposition: ADMITTED INPATIENT Condition: Stable Peter Shipley MD Jan 26, 2019 22:17
[2019-01-26 22:44] LABS: HEMATOCRIT 28.7 % (42.0-52.0); HEMOGLOBIN 9.9 G/DL (14.2-18.0); MEAN CORPUSCULAR VOLUME 94 FL (80-99); PLATELET COUNT 92 K/UL (150-450); RED BLOOD COUNT 3.05 M/UL (4.70-6.10); RED CELL DISTRIBUTION WIDTH 12.7 % (11.6-14.8); WHITE BLOOD COUNT 5.2 K/UL (4.8-10.8)
[2019-01-26 22:53] LABS: ANION GAP 7 mmol/L (5-15); BLOOD UREA NITROGEN 40 mg/dL (7-18); CALCIUM 8.2 MG/DL (8.5-10.1); CARBON DIOXIDE 27 MMOL/L (21-32); CHLORIDE 111 MMOL/L (98-107); CREATININE 2.9 MG/DL (0.55-1.30); POTASSIUM 4.9 MMOL/L (3.5-5.1); SODIUM 145 MMOL/L (136-145)
[2019-01-26 23:08] LABS: ALANINE AMINOTRANSFERASE 11 U/L (12-78); ALBUMIN 2.7 G/DL (3.4-5.0); ALBUMIN/GLOBULIN RATIO 0.7 (1.0-2.7); ALKALINE PHOSPHATASE 82 U/L (46-116); ASPARTATE AMINO TRANSFERASE 11 U/L (15-37); BILIRUBIN,TOTAL 0.5 MG/DL (0.2-1.0); CKMB 1.3 NG/ML (0.0-3.6); CREATINE KINASE 31 U/L (26-308); PHOSPHORUS 3.7 MG/DL (2.5-4.9)
[2019-01-26 23:14] LABS: APPEARANCE,URINE SLIGHTLY CLOUDY; BILIRUBIN, URINE NEGATIVE (NEGATIVE); COLOR,URINE PALE YELLOW; GLUCOSE, URINE (UA) 1+ (NEGATIVE); KETONES,URINE NEGATIVE (NEGATIVE); LEUKOCYTE ESTERASE ,URINE NEGATIVE (NEGATIVE); NITRITE,URINE NEGATIVE (NEGATIVE); PH,URINE 5 (4.5-8.0); PROTEIN,URINE 3+ (NEGATIVE); UROBILINOGEN,URINE NORMAL MG/DL (0.0-1.0)
--- NOTE | 2019-01-26 23:27 | Diagnostic Imaging Report ---
EXAM: XR Chest, 1 View CLINICAL HISTORY: SOB TECHNIQUE: Frontal view of the chest. COMPARISON: No relevant prior studies available. FINDINGS/IMPRESSION: Rotated portable chest. Cardiac and mediastinal silhouette mildly prominent, accentuated by technique. No evidence for overt edema, consolidation or other acute cardiopulmonary process.
[2019-01-27] VITALS (7 sets, daily range): BP systolic 131–197; BP diastolic 69–88
--- NOTE | 2019-01-27 00:25 | NUR ---
ED Nurse Note: Patient was admited to Tele due to syncopy episode, anemia. Patient was transfered to the unit via gurney, by ACLS protocol, with all belongings.
--- NOTE | 2019-01-27 00:40 | NUR ---
NURSE NOTES: received pt from Tegan RN from ED, pt is awake and AOx3, right eye blindness, RA Sao2 100% no SOB and no Respiratory distress noted. no pain at this moment. applied clinical instructor on. right IV AC 20G intact and patent. initial wound assessment done sacral open wound, picture taken. applied dressing by protocol. right 5th toe is amputated upon admission. cleaned pt and changed position. checked belonging list. admission education given to pt. BP is 197/88 up on arrival in unit, but pt has not reported no CURRY or dizziness at this moment. call light within reach. bed in lowest position, locked, alarmed. will continue to monitor pt with plan of care. left message to Dr. Springer to get admission order. will wait for call back.
[2019-01-27] MEDS ORDERED: MILK OF MA400 MG/51 ORAL (01:13)
[2019-01-27] MEDS ORDERED: LEVEMIR FL100 UNIT/1 SUBQ (01:13)
[2019-01-27] MEDS ORDERED: ATORVASTATIN CA10 MG ORAL (01:13)
--- NOTE | 2019-01-27 01:30 | NUR ---
NURSE NOTES: left message to to get admission order. will wait for call back.
--- NOTE | 2019-01-27 02:48 | NUR ---
NURSE NOTES: left message to Dr. Springer to get admission order. will wait for call back.
--- NOTE | 2019-01-27 04:02 | NUR ---
NURSE NOTES: left message to Dr. Springer to get admission order. will wait for call back.
--- NOTE | 2019-01-27 04:16 | NUR ---
NURSE NOTES: got call back from DR. Springer, received admission orders and carried out. DR. Springer aware of Elevated BP of the pt. will continue monitor pt.
[2019-01-27] MEDS ORDERED: Morphine Sulfate 2mg/ml Inj(IV/IM USE ONLY) IVP PRN (05:00)
[2019-01-27] MEDS ORDERED: Milk of Magnesia 30ml Ud ORAL PRN (05:00)
[2019-01-27] MEDS ORDERED: Enalaprilat 2.5mg/2ml Inj IV PRN (06:30)
[2019-01-27] MEDS ORDERED: Labetalol 5mg/ml 20ml vial IV PRN (06:30)
--- NOTE | 2019-01-27 06:30 | NUR ---
NURSE NOTES: DR. Hwang visited and assess the pt, and aware of elevated BP. new order receiuved and will carry out the orders. continuye Addendum: 01/27/19 at 0701 by LISA HOWARD RN continue to monitor the pt's conditions and V/S.
--- NOTE | 2019-01-27 06:36 | Consultation ---
History of Present Illness General Date patient seen: Jan 27, 2019 Chief Complaint: Syncope Present Illness HPI 73-year-old male with a history of CVA, s/p PEG, removed now, DM, sent in from nursing facility after possible syncopal episode. He denies any symptoms prior to episode. Pt was found to be severely anemic and admitted to telemetry for further evaluation. Allergies: Coded Allergies: No Known Allergies (Unverified , 07/14/17) Medication History Scheduled Allopurinol* (Allopurinol*), 100 MG ORAL DAILY, (Reported) Atorvastatin Calcium* (Lipitor*), 10 MG ORAL BEDTIME, (Reported) Carvedilol* (Carvedilol*), 3.125 MG ORAL BID, (Reported) Docusate Sodium* (Docusate Sodium*), 200 MG ORAL DAILY, (Reported) Famotidine (Pepcid), 20 MG ORAL BID, (Reported) Ferrous Sulfate* (Ferrous Sulfate*), 325 MG ORAL DAILY, (Reported) Insulin Detemir (Levemir Flexpen), 36 SUBQ ACBREAKFAST, (Reported) Insulin Regular, Human* (Novolin R*), 0 SUBQ .SLIDING SCALE, (Reported) Multivitamin With Minerals (Multivitamins With Minerals*), 1 TAB ORAL DAILY, ( Reported) Scheduled PRN Acetaminophen* (Acetaminophen 325MG Tablet*), 650 MG ORAL Q6H PRN for Mild Pain/ Temp > 100.5, (Reported) Magnesium Hydroxide* (Milk Of Magnesia*), 30 ML ORAL DAILY PRN for Constipation, (Reported) Patient History Healthcare decision maker Resuscitation status Full Code Advanced Directive on File Past Medical/Surgical History Past Medical/Surgical History: (1) History of CVA (cerebrovascular accident) (2) Contracture of multiple joints (3) Severe anemia (4) Diabetes mellitus (5) History of acute gouty arthritis Review of Systems All Other Systems: negative except mentioned in HPI Physical Exam General Appearance: WD/WN Lines, tubes and drains: peripheral HEENT: normocephalic, atraumatic Neck: non-tender, normal alignment Respiratory/Chest: chest wall non-tender, lungs clear Breasts: no masses Cardiovascular/Chest: normal peripheral pulses Abdomen: normal bowel sounds Genitourinary/Rectal: normal genital exam Extremities: normal range of motion Last 24 Hour Vital Signs Date Time Temp Pulse Resp B/P (MAP) Pulse Ox O2 Delivery O2 Flow Rate FiO2 01/27/19 05:05 186/86 01/27/19 04:00 97.7 68 19 186/86 (119) 99 01/27/19 03:39 71 01/27/19 01:00 Room Air 01/27/19 00:40 97.7 65 19 197/88 (124) 99 01/27/19 00:25 97.5 16 182/88 96 Room Air 01/27/19 00:25 97.5 16 182/88 96 Room Air 01/26/19 22:10 97.5 16 182/88 96 Room Air 01/26/19 21:53 97.5 70 16 182/88 (119) 96 Room Air Intake and Output 01/26/19 01/27/19 19:00 07:00 Intake Total 80 ml Output Total 350 ml Balance -270 ml Intake Oral 30 ml IV Total 50 ml Output Urine Total 350 ml # Voids 1 Laboratory Tests Test 01/26/19 22:30 01/26/19 22:49 01/26/19 22:55 White Blood Count 5.2 K/UL (4.8-10.8) Red Blood Count 3.05 M/UL (4.70-6.10) L Hemoglobin 9.9 G/DL (14.2-18.0) L Hematocrit 28.7 % (42.0-52.0) L Mean Corpuscular Volume 94 FL (80-99) Mean Corpuscular Hemoglobin 32.5 PG (27.0-31.0) H Mean Corpuscular Hemoglobin Concent 34.5 G/DL (32.0-36.0) Red Cell Distribution Width 12.7 % (11.6-14.8) Platelet Count 92 K/UL (150-450) L Mean Platelet Volume 7.7 FL (6.5-10.1) Neutrophils (%) (Auto) % (45.0-75.0) Lymphocytes (%) (Auto) % (20.0-45.0) Monocytes (%) (Auto) % (1.0-10.0) Eosinophils (%) (Auto) % (0.0-3.0) Basophils (%) (Auto) % (0.0-2.0) Differential Total Cells Counted 100 Neutrophils % (Manual) 51 % (45-75) Lymphocytes % (Manual) 43 % (20-45) Monocytes % (Manual) 4 % (1-10) Eosinophils % (Manual) 2 % (0-3) Basophils % (Manual) 0 % (0-2) Band Neutrophils 0 % (0-8) Platelet Estimate Decreased L Platelet Morphology Normal Hypochromasia 2+ Anisocytosis 1+ Prothrombin Time 10.4 SEC (9.30-11.50) Prothromb Time International Ratio 1.0 (0.9-1.1) Activated Partial Thromboplast Time 27 SEC (23-33) Sodium Level 145 MMOL/L (136-145) Potassium Level 4.9 MMOL/L (3.5-5.1) Chloride Level 111 MMOL/L (98-107) H Carbon Dioxide Level 27 MMOL/L (21-32) Anion Gap 7 mmol/L (5-15) Blood Urea Nitrogen 40 mg/dL (7-18) H Creatinine 2.9 MG/DL (0.55-1.30) H Estimat Glomerular Filtration Rate mL/min (>60) Glucose Level 233 MG/DL (74-106) H Calcium Level 8.2 MG/DL (8.5-10.1) L Phosphorus Level 3.7 MG/DL (2.5-4.9) Magnesium Level 1.8 MG/DL (1.8-2.4) Total Bilirubin 0.5 MG/DL (0.2-1.0) Aspartate Amino Transf (AST/SGOT) 11 U/L (15-37) L Alanine Aminotransferase (ALT/SGPT) 11 U/L (12-78) L Alkaline Phosphatase 82 U/L (46-116) Total Creatine Kinase 31 U/L (26-308) Creatine Kinase MB 1.3 NG/ML (0.0-3.6) Creatine Kinase MB Relative Index 4.1 Troponin I 0.022 ng/mL (0.000-0.056) Pro-B-Type Natriuretic Peptide 3065 pg/mL (0-125) H Total Protein 6.8 G/DL (6.4-8.2) Albumin 2.7 G/DL (3.4-5.0) L Globulin 4.1 g/dL Albumin/Globulin Ratio 0.7 (1.0-2.7) L Lactic Acid Level 1.40 mmol/L (0.4-2.0) Urine Color Pale yellow Urine Appearance Slightly cloudy Urine pH 5 (4.5-8.0) Urine Specific [place] 1.015 (1.005-1.035) Urine Protein 3+ (NEGATIVE) H Urine Glucose (UA) 1+ (NEGATIVE) H Urine Ketones Negative (NEGATIVE) Urine Blood 3+ (NEGATIVE) H Urine Nitrite Negative (NEGATIVE) Urine Bilirubin Negative (NEGATIVE) Urine Urobilinogen Normal MG/DL (0.0-1.0) Urine Leukocyte Esterase Negative (NEGATIVE) Urine RBC 5-10 /HPF (0 - 0) H Urine WBC 0-2 /HPF (0 - 0) Urine Squamous Epithelial Cells Occasional /LPF Urine Amorphous Sediment Many /LPF (NONE) H Urine Bacteria Occasional /HPF (NONE) Microbiology Date/Time Source Procedure Growth Status 01/26/19 23:30 Rectum Received Height (Feet): 6 Height (Inches): 3.00 Weight (Pounds): 184 Medications Current Medications Medications (Trade) Dose Ordered Sig/Jethro Route PRN Reason Start Time Stop Time Status Last Admin Dose Admin Acetaminophen (Tylenol) 650 mg Q6H PRN ORAL Mild Pain/Temp > 100.5 01/27/19 05:00 02/26/19 04:59 Allopurinol (Zyloprim) 100 mg DAILY ORAL 01/27/19 09:00 02/26/19 08:59 Atorvastatin Calcium (Lipitor) 10 mg BEDTIME ORAL 01/27/19 21:00 02/26/19 20:59 Carvedilol (Coreg) 3.125 mg BID@0900,2100 ORAL 01/27/19 09:00 02/26/19 08:59 Clonidine HCl (Catapres Tab) 0.1 mg QID ORAL 01/27/19 04:30 02/26/19 04:29 01/27/19 05:05 Dextrose (Dextrose 50%) 25 ml Q30M PRN IV Hypoglycemia 01/27/19 04:30 02/26/19 04:29 Dextrose (Dextrose 50%) 50 ml Q30M PRN IV Hypoglycemia 01/27/19 04:30 02/26/19 04:29 Docusate Sodium (Colace) 200 mg DAILY ORAL 01/27/19 09:00 02/26/19 08:59 Famotidine (Pepcid) 20 mg DAILY ORAL 01/27/19 09:00 02/26/19 08:59 Ferrous Sulfate (Feosol) 325 mg DAILY ORAL 01/27/19 09:00 02/26/19 08:59 Insulin Aspart (NovoLOG) BEFORE MEALS AND HS SUBQ 01/27/19 06:30 02/26/19 06:29 Insulin Detemir (Levemir) 36 units ACBREAKFAST SUBQ 01/27/19 06:30 02/26/19 06:29 Magnesium Hydroxide (Mom) 30 ml DAILY PRN ORAL Constipation 01/27/19 05:00 02/26/19 04:59 Morphine Sulfate (Morphine Sulfate) 2 mg Q4H PRN IVP For Pain 01/27/19 05:00 02/03/19 04:59 Sodium Chloride 1,000 ml @ 60 mls/hr [id number] IV 01/27/19 05:00 02/26/19 04:59 01/27/19 05:05 Assessment/Plan Problem List: (1) Severe anemia ICD Codes: D64.9 - Anemia, unspecified SNOMED: 804237897 (2) Hypertension ICD Codes: I10 - Essential (primary) hypertension SNOMED: 74777466 (3) At high risk for aspiration ICD Codes: Z91.89 - Other specified personal risk factors, not elsewhere classified SNOMED: 519365041 (4) Acute encephalopathy ICD Codes: G93.40 - Encephalopathy, unspecified SNOMED: 66518855, 319898838 (5) Contracture of multiple joints ICD Codes: M24.50 - Contracture, unspecified joint SNOMED: 97222556, 821877921 (6) History of acute gouty arthritis ICD Codes: Z87.39 - Personal history of other diseases of the musculoskeletal system and connective tissue SNOMED: 995282983 (7) History of CVA (cerebrovascular accident) ICD Codes: Z86.73 - Personal history of transient ischemic attack (TIA), and cerebral infarction without residual deficits SNOMED: 533255387 (8) Diabetes mellitus ICD Codes: E11.9 - Type 2 diabetes mellitus without complications SNOMED: 00265526 Assessment/Plan: anemia w/u prbc prn echo monitor BP sliding scale diabetic diet dvt prophylaxis. Dieter Hwang MD Jan 27, 2019 06:36
[2019-01-27] MEDS: Levemir Flexpen SUBQ SCH (06:37)
[2019-01-27] MEDS: NovoLOG Insulin Flexpen SUBQ SCH ×4 (06:37→21:00)
[2019-01-27] MEDS ORDERED: Enalaprilat 1.25mg/ml Inj IV PRN (07:00)
--- NOTE | 2019-01-27 07:40 | NUR ---
HAND-OFF: Report given to Mayra QUIÑONES. pt is sleeping on the bed. no signs and symptomos of SOB and respiratory distress at this moment.
--- NOTE | 2019-01-27 07:41 | NUR ---
NURSE NOTES: Received report from ISHMAEL Anderson and ISHMAEL Nagy. Observed patient in bed, asleep, arousable to verbal stimuli. On room air, no respiratory distress noted. External catheter intact and draining well. Right AC IV 20g intact and patent with IV fluids infusing at prescribed rate. Safety precautions in place, bed locked, alarmed, and in lowest position, side rails up x3, call light left within reach. Will continue to monitor.
[2019-01-27 08:09] LABS: MEAN CORPUSCULAR VOLUME 100 FL (80-99); PLATELET COUNT 80 K/UL (150-450); RED BLOOD COUNT 2.79 M/UL (4.70-6.10); RED CELL DISTRIBUTION WIDTH 13.1 % (11.6-14.8); WHITE BLOOD COUNT 5.2 K/UL (4.8-10.8)
[2019-01-27 08:31] LABS: LACTATE DEHYDROGENASE 125 U/L (81-234)
[2019-01-27 08:37] LABS: % IRON SATURATION 67 % (15-50); IRON 88 ug/dL (50-175); TOTAL IRON BINDING CAPACITY 132 ug/dL (250-450)
[2019-01-27 08:43] LABS: ANION GAP 9 mmol/L (5-15); BLOOD UREA NITROGEN 36 mg/dL (7-18); CALCIUM 7.9 MG/DL (8.5-10.1); CARBON DIOXIDE 24 MMOL/L (21-32); CHLORIDE 114 MMOL/L (98-107); CREATININE 2.5 MG/DL (0.55-1.30); FERRITIN 1134 NG/ML (8-388); POTASSIUM 4.4 MMOL/L (3.5-5.1); SODIUM 147 MMOL/L (136-145)
--- NOTE | 2019-01-27 09:00 | Consultation ---
History of Present Illness General Chief Complaint: Syncope Present Illness Allergies: Coded Allergies: No Known Allergies (Unverified , 07/14/17) Medication History Scheduled Allopurinol* (Allopurinol*), 100 MG ORAL DAILY, (Reported) Atorvastatin Calcium* (Lipitor*), 10 MG ORAL BEDTIME, (Reported) Carvedilol* (Carvedilol*), 3.125 MG ORAL BID, (Reported) Docusate Sodium* (Docusate Sodium*), 200 MG ORAL DAILY, (Reported) Famotidine (Pepcid), 20 MG ORAL BID, (Reported) Ferrous Sulfate* (Ferrous Sulfate*), 325 MG ORAL DAILY, (Reported) Insulin Detemir (Levemir Flexpen), 36 SUBQ ACBREAKFAST, (Reported) Insulin Regular, Human* (Novolin R*), 0 SUBQ .SLIDING SCALE, (Reported) Multivitamin With Minerals (Multivitamins With Minerals*), 1 TAB ORAL DAILY, ( Reported) Scheduled PRN Acetaminophen* (Acetaminophen 325MG Tablet*), 650 MG ORAL Q6H PRN for Mild Pain/ Temp > 100.5, (Reported) Magnesium Hydroxide* (Milk Of Magnesia*), 30 ML ORAL DAILY PRN for Constipation, (Reported) Patient History Healthcare decision maker Resuscitation status Full Code Advanced Directive on File Physical Exam Last 24 Hour Vital Signs Date Time Temp Pulse Resp B/P (MAP) Pulse Ox O2 Delivery O2 Flow Rate FiO2 01/27/19 08:00 97.3 64 18 147/74 (98) 100 01/27/19 06:51 68 195/95 01/27/19 05:05 186/86 01/27/19 04:00 97.7 68 19 186/86 (119) 99 01/27/19 03:39 71 01/27/19 01:00 Room Air 01/27/19 00:40 97.7 65 19 197/88 (124) 99 01/27/19 00:25 97.5 16 182/88 96 Room Air 01/27/19 00:25 97.5 16 182/88 96 Room Air 01/26/19 22:10 97.5 16 182/88 96 Room Air 01/26/19 21:53 97.5 70 16 182/88 (119) 96 Room Air Intake and Output 01/26/19 01/27/19 19:00 07:00 Intake Total 140 ml Output Total 350 ml Balance -210 ml Intake Oral 30 ml IV Total 110 ml Output Urine Total 350 ml # Voids 1 Laboratory Tests Test 01/26/19 22:30 01/26/19 22:49 01/26/19 22:55 01/27/19 07:00 White Blood Count 5.2 K/UL (4.8-10.8) Red Blood Count 3.05 M/UL (4.70-6.10) L Hemoglobin 9.9 G/DL (14.2-18.0) L Hematocrit 28.7 % (42.0-52.0) L Mean Corpuscular Volume 94 FL (80-99) Mean Corpuscular Hemoglobin 32.5 PG (27.0-31.0) H Mean Corpuscular Hemoglobin Concent 34.5 G/DL (32.0-36.0) Red Cell Distribution Width 12.7 % (11.6-14.8) Platelet Count 92 K/UL (150-450) L Mean Platelet Volume 7.7 FL (6.5-10.1) Neutrophils (%) (Auto) % (45.0-75.0) Lymphocytes (%) (Auto) % (20.0-45.0) Monocytes (%) (Auto) % (1.0-10.0) Eosinophils (%) (Auto) % (0.0-3.0) Basophils (%) (Auto) % (0.0-2.0) Differential Total Cells Counted 100 Neutrophils % (Manual) 51 % (45-75) Lymphocytes % (Manual) 43 % (20-45) Monocytes % (Manual) 4 % (1-10) Eosinophils % (Manual) 2 % (0-3) Basophils % (Manual) 0 % (0-2) Band Neutrophils 0 % (0-8) Platelet Estimate Decreased L Platelet Morphology Normal Hypochromasia 2+ Anisocytosis 1+ Prothrombin Time 10.4 SEC (9.30-11.50) Prothromb Time International Ratio 1.0 (0.9-1.1) Activated Partial Thromboplast Time 27 SEC (23-33) Sodium Level 145 MMOL/L (136-145) 147 MMOL/L (136-145) H Potassium Level 4.9 MMOL/L (3.5-5.1) 4.4 MMOL/L (3.5-5.1) Chloride Level 111 MMOL/L (98-107) H 114 MMOL/L (98-107) H Carbon Dioxide Level 27 MMOL/L (21-32) 24 MMOL/L (21-32) Anion Gap 7 mmol/L (5-15) 9 mmol/L (5-15) Blood Urea Nitrogen 40 mg/dL (7-18) H 36 mg/dL (7-18) H Creatinine 2.9 MG/DL (0.55-1.30) H 2.5 MG/DL (0.55-1.30) H Estimat Glomerular Filtration Rate mL/min (>60) mL/min (>60) Glucose Level 233 MG/DL (74-106) H 129 MG/DL (74-106) #H Calcium Level 8.2 MG/DL (8.5-10.1) L 7.9 MG/DL (8.5-10.1) L Phosphorus Level 3.7 MG/DL (2.5-4.9) Magnesium Level 1.8 MG/DL (1.8-2.4) Total Bilirubin 0.5 MG/DL (0.2-1.0) Aspartate Amino Transf (AST/SGOT) 11 U/L (15-37) L Alanine Aminotransferase (ALT/SGPT) 11 U/L (12-78) L Alkaline Phosphatase 82 U/L (46-116) Total Creatine Kinase 31 U/L (26-308) Creatine Kinase MB 1.3 NG/ML (0.0-3.6) Creatine Kinase MB Relative Index 4.1 Troponin I 0.022 ng/mL (0.000-0.056) 0.026 ng/mL (0.000-0.056) Pro-B-Type Natriuretic Peptide 3065 pg/mL (0-125) H Total Protein 6.8 G/DL (6.4-8.2) Albumin 2.7 G/DL (3.4-5.0) L Globulin 4.1 g/dL Albumin/Globulin Ratio 0.7 (1.0-2.7) L Lactic Acid Level 1.40 mmol/L (0.4-2.0) Urine Color Pale yellow Urine Appearance Slightly cloudy Urine pH 5 (4.5-8.0) Urine Specific [place] 1.015 (1.005-1.035) Urine Protein 3+ (NEGATIVE) H Urine Glucose (UA) 1+ (NEGATIVE) H Urine Ketones Negative (NEGATIVE) Urine Blood 3+ (NEGATIVE) H Urine Nitrite Negative (NEGATIVE) Urine Bilirubin Negative (NEGATIVE) Urine Urobilinogen Normal MG/DL (0.0-1.0) Urine Leukocyte Esterase Negative (NEGATIVE) Urine RBC 5-10 /HPF (0 - 0) H Urine WBC 0-2 /HPF (0 - 0) Urine Squamous Epithelial Cells Occasional /LPF Urine Amorphous Sediment Many /LPF (NONE) H Urine Bacteria Occasional /HPF (NONE) Iron Level 88 ug/dL (50-175) Total Iron Binding Capacity 132 ug/dL (250-450) L Percent Iron Saturation 67 % (15-50) H Unsaturated Iron Binding 44 ug/dL (112-346) L Ferritin 1134 NG/ML (8-388) H Lactate Dehydrogenase 125 U/L (81-234) Vitamin B12 Level Pending Test 01/27/19 07:02 White Blood Count 5.2 K/UL (4.8-10.8) Red Blood Count 2.79 M/UL (4.70-6.10) L Hemoglobin 9.0 G/DL (14.2-18.0) L Hematocrit 28.0 % (42.0-52.0) L Mean Corpuscular Volume 100 FL (80-99) H Mean Corpuscular Hemoglobin 32.4 PG (27.0-31.0) H Mean Corpuscular Hemoglobin Concent 32.3 G/DL (32.0-36.0) Red Cell Distribution Width 13.1 % (11.6-14.8) Platelet Count 80 K/UL (150-450) L Mean Platelet Volume 9.3 FL (6.5-10.1) Neutrophils (%) (Auto) % (45.0-75.0) Lymphocytes (%) (Auto) % (20.0-45.0) Monocytes (%) (Auto) % (1.0-10.0) Eosinophils (%) (Auto) % (0.0-3.0) Basophils (%) (Auto) % (0.0-2.0) Neutrophils % (Manual) Pending Lymphocytes % (Manual) Pending Platelet Estimate Pending Platelet Morphology Pending Reticulocyte Count Pending Carcinoembryonic Antigen Pending Microbiology Date/Time Source Procedure Growth Status 01/26/19 23:30 Rectum Received Height (Feet): 6 Height (Inches): 3.00 Weight (Pounds): 184 Medications Current Medications Medications (Trade) Dose Ordered Sig/Jethro Route PRN Reason Start Time Stop Time Status Last Admin Dose Admin Acetaminophen (Tylenol) 650 mg Q6H PRN ORAL Mild Pain/Temp > 100.5 01/27/19 05:00 02/26/19 04:59 Allopurinol (Zyloprim) 100 mg DAILY ORAL 01/27/19 09:00 02/26/19 08:59 Atorvastatin Calcium (Lipitor) 10 mg BEDTIME ORAL 01/27/19 21:00 02/26/19 20:59 Carvedilol (Coreg) 3.125 mg BID@0900,2100 ORAL 01/27/19 09:00 02/26/19 08:59 Clonidine HCl (Catapres Tab) 0.1 mg QID ORAL 01/27/19 04:30 02/26/19 04:29 01/27/19 05:05 Dextrose (Dextrose 50%) 25 ml Q30M PRN IV Hypoglycemia 01/27/19 04:30 02/26/19 04:29 Dextrose (Dextrose 50%) 50 ml Q30M PRN IV Hypoglycemia 01/27/19 04:30 02/26/19 04:29 Docusate Sodium (Colace) 200 mg DAILY ORAL 01/27/19 09:00 02/26/19 08:59 Enalaprilat (Vasotec) 2.5 mg Q4H PRN IV sbp more than 200 01/27/19 07:00 02/26/19 06:29 Famotidine (Pepcid) 20 mg DAILY ORAL 01/27/19 09:00 02/26/19 08:59 Ferrous Sulfate (Feosol) 325 mg DAILY ORAL 01/27/19 09:00 02/26/19 08:59 Hydralazine HCl (Apresoline) 20 mg Q4H PRN IV sbp more than 160 01/27/19 06:30 02/26/19 06:29 Insulin Aspart (NovoLOG) BEFORE MEALS AND HS SUBQ 01/27/19 06:30 02/26/19 06:29 01/27/19 06:37 Insulin Detemir (Levemir) 36 units ACBREAKFAST SUBQ 01/27/19 06:30 02/26/19 06:29 01/27/19 06:37 Labetalol HCl (Normodyne) 20 mg EVERY HOUR PRN IV sbo more than 180 01/27/19 06:30 02/26/19 06:29 01/27/19 06:51 Magnesium Hydroxide (Mom) 30 ml DAILY PRN ORAL Constipation 01/27/19 05:00 02/26/19 04:59 Morphine Sulfate (Morphine Sulfate) 2 mg Q4H PRN IVP For Pain 01/27/19 05:00 02/03/19 04:59 Sodium Chloride 1,000 ml @ 60 mls/hr [id number] IV 01/27/19 05:00 02/26/19 04:59 01/27/19 05:05 Assessment/Plan Assessment/Plan: Heme Consultation REQ : Yoon Springer RFC: Anemia eval DOS: 01/27/[address] Springer to [facility] for anemia, he is a 73-year-old male sent in from nursing facility after possible syncopal episode. Patient denies any current pain. He had prior history of CVA. Episode occurred approximately 3 hours prior to arrival. He denies any symptoms prior to episode. He states he was not having any preceding symptoms. History is limited by patient being a poor historian. Is very difficult to obtain much history from him, given stuttered speech, noted to be anemic Allergies: No Known Allergies (Unverified , 07/14/17) Patient History Past Medical History: see triage record Reviewed Nursing Documentation: PMH: Agreed; PSxH: Agreed Nursing Documentation-PMH Hx Hypertension: Yes Hx Diabetes: Yes Hx Cancer: No Hx Gastrointestinal Problems: Yes Hx Cerebrovascular Accident: Yes Review of Systems: limited - by mental status Physical Exam Gen: alert, Chronically Ill ENT: normal ENT inspection Pulm: ctab, no cwr CV: regular rate, rhythm, no edema GI: soft, nt, nd Msk: normal inspection, back normal Neurologic: normal inspection, alert, responsive, speech normal Labs: noted Imaging: noted Assessment and Recs: # Anemia of chronic disease with elevated ferritin >1100, likely multifactorial , due to chronic disease --> anemia panel has been ordered, ferritin is high --> peripheral smear reviewed, and no e/o hemolysis --> okay to continue on po iron for now --> trend hgb 9.9-->9 --> hold off on epo # Thrombocytopenia with current trend 50-100 range --> unknown etiology, obtain hep and hiv --> us of abd prn --> plt transf is plt <20k # Diabetes mellitus --> accuchecks qac and qhs --> [id number] goal <8 --> endo eval prn # Syncope --> cards recs, ekg --> monitor for recurrence --> neuro checks # Hypernatremia --> per renal, currently on ivf # RATNA --> renal recs # Dvt ppx with hep sq Time of note does not correspond to time patient was seen. Greatly appreciate consultation. Bear Mayo MD Jan 27, 2019 09:00
[2019-01-27] MEDS: Allopurinol 100mg Tab ORAL SCH (09:08)
[2019-01-27] MEDS: Docusate 100mg cap ORAL SCH (09:09)
--- NOTE | 2019-01-27 09:54 | NUR ---
RD ASSESSMENT & RECOMMENDATIONS SEE CARE ACTIVITY FOR COMPLETE ASSESSMENT DAILY ESTIMATED NEEDS: Needs based on DM, Cardiac/ 85kg 25-30 kcals/kg 6346-0376 total kcals 1-1.3 g protein/kg 85-110 g total protein 25-30 mL/kg 9941-5211 total fluid mLs NUTRITION DIAGNOSIS: * Increased kcal/prot/micronutrients needs R/T wound healing as evidenced by pt admitted w/ sacral wound per photo, eval pending. * Swallowing difficulty R/T dysphagia, hx of CVA as evidenced by hx of GT dep but now removed, on pureed moist texture. * Altered nutrition related lab values R/T diabetes, CKD as evidenced by elev BGs (129 223), elev creat (2.5) CURRENT DIET:LOW NA, CCHO MED/ pureed moist PO DIET RECOMMENDATIONS: CONTINUE LOW NA, CCHO MED/ TEXTURE PER ENVIRONMENTAL REMEDIATION SPECIALIST ADDITIONAL RECOMMENDATIONS: * Calibrated bedscale wt for accurate CBW * A1C for eval of glycemic control * ENVIRONMENTAL REMEDIATION SPECIALIST eval for appropriate texture * Add Glucerna TID w/ meals (pt on HPN TID WASTE DISPOSAL LEAKAGE TESTER, assume inadequate meal intake) * Wound healing: add MVI x 1, Vit C 250mg QD, ZnSO4 220mg QD x 10 days : add Kaden 1pkt BID
--- NOTE | 2019-01-27 13:36 | Diagnostic Imaging Report ---
EXAM: US Duplex Bilateral Lower Extremity Veins CLINICAL HISTORY: DVT TECHNIQUE: Real-time duplex ultrasound scan of the bilateral lower extremity veins integrating B-mode two-dimensional vascular structure, Doppler spectral analysis, color flow Doppler imaging and compression. COMPARISON: No relevant prior studies available. FINDINGS: Right deep veins: Unremarkable. No DVT in the right common femoral, femoral, proximal deep femoral or popliteal veins. The veins demonstrate normal color flow, are normally compressible, with normal phasic flow and/or augmentation response. Right superficial veins: Unremarkable. No thrombus in the visualized right great saphenous vein. Left deep veins: Unremarkable. No DVT in the left common femoral, femoral, proximal deep femoral or popliteal veins. The veins demonstrate normal color flow, are normally compressible, with normal phasic flow and/or augmentation response. Left superficial veins: Unremarkable. No thrombus in the visualized left great saphenous vein. Soft tissues: No acute findings. IMPRESSION: No DVT demonstrated.
--- NOTE | 2019-01-27 14:15 | History and Physical Report ---
DATE OF ADMISSION: 01/26/2019 DATE AND TIME SEEN: 01/27/2019 at 10 a.m. CONSULTANTS: 1. José Mcdonald M.D. 2. Karuna العلي M.D. 3. Kong Betts M.D. CHIEF COMPLAINT: Syncope, diabetes, CVA, decubitus ulcer. BRIEF HISTORY: This is a 73-year-old male from [facility], presented with history of syncope. The patient is little bit confused currently therefore history obtained from chart. The patient came and diagnosed with the above and admitted to step down for further care. Currently, calm in bed, confused, oriented x1, in no acute distress. PAST MEDICAL HISTORY: Diabetes, hypertension, CVA, decubitus ulcer, encephalopathy, arthritis, and anemia. PAST SURGICAL HISTORY: Unknown. ALLERGIES: Denies. MEDICATIONS: Include Lipitor, Zyloprim, Coreg, Colace, Pepcid, , Vasotec, NovoLog, Levemir, Normodyne, morphine, magnesium, Tylenol, and clonidine. SOCIAL HISTORY: No smoking. No alcohol. No intravenous drug abuse. FAMILY HISTORY: Noncontributory. PHYSICAL EXAMINATION: GENERAL: Calm in bed, oriented x1, in no acute distress. VITAL SIGNS: Temperature 97 degrees, pulse 64, respirations 18, and blood pressure 147/74. CARDIOVASCULAR: No murmur. LUNGS: Distant and clear. ABDOMEN: Bowel sounds positive. Nontender. Nondistended. EXTREMITIES: Show no cyanosis, clubbing, or edema. NEUROLOGIC: The patient moves all extremities, slightly weak. LABORATORY AND DIAGNOSTIC DATA: Labs at this time show hemoglobin and hematocrit 9/28, otherwise CBC is normal. BMP shows sodium 147, chloride 114, BUN and creatinine 36 and 2.5, glucose 129. Ferritin 1134. Urinalysis show 3+ blood, 3+ protein. ASSESSMENT: 1. Syncope. 2. Diabetes. 3. CVA. 4. Renal failure. 5. Hypertension. 6. Encephalopathy. 7. Anemia. 8. Decubitus ulcer. 9. Arthritis. PLAN: 1. Blood pressure and blood sugar control. 2. Nephrology followup. 3. Dietary followup. 4. Cardiology followup. 5. PT and dietary evaluation. 6. CBC and BMP in the morning. Benji Springer D.O. DR: KATALINA JOB#: [id number] CC:
--- NOTE | 2019-01-27 14:33 | Cardiac Electrophysiology PN ---
Subjective Subjective [id number] Objective Last 24 Hour Vital Signs Date Time Temp Pulse Resp B/P (MAP) Pulse Ox O2 Delivery O2 Flow Rate FiO2 01/27/19 13:03 140/75 01/27/19 12:00 97.5 62 18 140/75 (96) 100 01/27/19 11:40 61 01/27/19 09:12 147/74 01/27/19 09:08 64 147/74 01/27/19 09:00 Room Air 01/27/19 08:00 97.3 64 18 147/74 (98) 100 01/27/19 07:41 57 01/27/19 06:51 68 195/95 01/27/19 05:05 186/86 01/27/19 04:00 97.7 68 19 186/86 (119) 99 01/27/19 03:39 71 01/27/19 01:00 Room Air 01/27/19 00:40 97.7 65 19 197/88 (124) 99 01/27/19 00:25 97.5 16 182/88 96 Room Air 01/27/19 00:25 97.5 16 182/88 96 Room Air 01/26/19 22:10 97.5 16 182/88 96 Room Air 01/26/19 21:53 97.5 70 16 182/88 (119) 96 Room Air Intake and Output 01/26/19 01/27/19 18:59 06:59 Intake Total 80 ml Output Total 350 ml Balance -270 ml Intake Oral 30 ml IV Total 50 ml Output Urine Total 350 ml # Voids 1 Laboratory Tests Test 01/26/19 22:30 01/26/19 22:49 01/26/19 22:55 01/27/19 07:00 White Blood Count 5.2 K/UL (4.8-10.8) Red Blood Count 3.05 M/UL (4.70-6.10) L Hemoglobin 9.9 G/DL (14.2-18.0) L Hematocrit 28.7 % (42.0-52.0) L Mean Corpuscular Volume 94 FL (80-99) Mean Corpuscular Hemoglobin 32.5 PG (27.0-31.0) H Mean Corpuscular Hemoglobin Concent 34.5 G/DL (32.0-36.0) Red Cell Distribution Width 12.7 % (11.6-14.8) Platelet Count 92 K/UL (150-450) L Mean Platelet Volume 7.7 FL (6.5-10.1) Neutrophils (%) (Auto) % (45.0-75.0) Lymphocytes (%) (Auto) % (20.0-45.0) Monocytes (%) (Auto) % (1.0-10.0) Eosinophils (%) (Auto) % (0.0-3.0) Basophils (%) (Auto) % (0.0-2.0) Differential Total Cells Counted 100 Neutrophils % (Manual) 51 % (45-75) Lymphocytes % (Manual) 43 % (20-45) Monocytes % (Manual) 4 % (1-10) Eosinophils % (Manual) 2 % (0-3) Basophils % (Manual) 0 % (0-2) Band Neutrophils 0 % (0-8) Platelet Estimate Decreased L Platelet Morphology Normal Hypochromasia 2+ Anisocytosis 1+ Prothrombin Time 10.4 SEC (9.30-11.50) Prothromb Time International Ratio 1.0 (0.9-1.1) Activated Partial Thromboplast Time 27 SEC (23-33) Sodium Level 145 MMOL/L (136-145) 147 MMOL/L (136-145) H Potassium Level 4.9 MMOL/L (3.5-5.1) 4.4 MMOL/L (3.5-5.1) Chloride Level 111 MMOL/L (98-107) H 114 MMOL/L (98-107) H Carbon Dioxide Level 27 MMOL/L (21-32) 24 MMOL/L (21-32) Anion Gap 7 mmol/L (5-15) 9 mmol/L (5-15) Blood Urea Nitrogen 40 mg/dL (7-18) H 36 mg/dL (7-18) H Creatinine 2.9 MG/DL (0.55-1.30) H 2.5 MG/DL (0.55-1.30) H Estimat Glomerular Filtration Rate mL/min (>60) mL/min (>60) Glucose Level 233 MG/DL (74-106) H 129 MG/DL (74-106) #H Calcium Level 8.2 MG/DL (8.5-10.1) L 7.9 MG/DL (8.5-10.1) L Phosphorus Level 3.7 MG/DL (2.5-4.9) Magnesium Level 1.8 MG/DL (1.8-2.4) Total Bilirubin 0.5 MG/DL (0.2-1.0) Aspartate Amino Transf (AST/SGOT) 11 U/L (15-37) L Alanine Aminotransferase (ALT/SGPT) 11 U/L (12-78) L Alkaline Phosphatase 82 U/L (46-116) Total Creatine Kinase 31 U/L (26-308) Creatine Kinase MB 1.3 NG/ML (0.0-3.6) Creatine Kinase MB Relative Index 4.1 Troponin I 0.022 ng/mL (0.000-0.056) 0.026 ng/mL (0.000-0.056) Pro-B-Type Natriuretic Peptide 3065 pg/mL (0-125) H Total Protein 6.8 G/DL (6.4-8.2) Albumin 2.7 G/DL (3.4-5.0) L Globulin 4.1 g/dL Albumin/Globulin Ratio 0.7 (1.0-2.7) L Lactic Acid Level 1.40 mmol/L (0.4-2.0) Urine Color Pale yellow Urine Appearance Slightly cloudy Urine pH 5 (4.5-8.0) Urine Specific [place] 1.015 (1.005-1.035) Urine Protein 3+ (NEGATIVE) H Urine Glucose (UA) 1+ (NEGATIVE) H Urine Ketones Negative (NEGATIVE) Urine Blood 3+ (NEGATIVE) H Urine Nitrite Negative (NEGATIVE) Urine Bilirubin Negative (NEGATIVE) Urine Urobilinogen Normal MG/DL (0.0-1.0) Urine Leukocyte Esterase Negative (NEGATIVE) Urine RBC 5-10 /HPF (0 - 0) H Urine WBC 0-2 /HPF (0 - 0) Urine Squamous Epithelial Cells Occasional /LPF Urine Amorphous Sediment Many /LPF (NONE) H Urine Bacteria Occasional /HPF (NONE) Iron Level 88 ug/dL (50-175) Total Iron Binding Capacity 132 ug/dL (250-450) L Percent Iron Saturation 67 % (15-50) H Unsaturated Iron Binding 44 ug/dL (112-346) L Ferritin 1134 NG/ML (8-388) H Lactate Dehydrogenase 125 U/L (81-234) Vitamin B12 Level 433 PG/ML (193-986) Test 01/27/19 07:02 White Blood Count 5.2 K/UL (4.8-10.8) Red Blood Count 2.79 M/UL (4.70-6.10) L Hemoglobin 9.0 G/DL (14.2-18.0) L Hematocrit 28.0 % (42.0-52.0) L Mean Corpuscular Volume 100 FL (80-99) H Mean Corpuscular Hemoglobin 32.4 PG (27.0-31.0) H Mean Corpuscular Hemoglobin Concent 32.3 G/DL (32.0-36.0) Red Cell Distribution Width 13.1 % (11.6-14.8) Platelet Count 80 K/UL (150-450) L Mean Platelet Volume 9.3 FL (6.5-10.1) Neutrophils (%) (Auto) % (45.0-75.0) Lymphocytes (%) (Auto) % (20.0-45.0) Monocytes (%) (Auto) % (1.0-10.0) Eosinophils (%) (Auto) % (0.0-3.0) Basophils (%) (Auto) % (0.0-2.0) Differential Total Cells Counted 100 Neutrophils % (Manual) 23 % (45-75) L Lymphocytes % (Manual) 66 % (20-45) H Monocytes % (Manual) 6 % (1-10) Eosinophils % (Manual) 5 % (0-3) H Basophils % (Manual) 0 % (0-2) Band Neutrophils 0 % (0-8) Platelet Estimate Decreased L Platelet Morphology Normal Macrocytosis 1+ Reticulocyte Count 0.5 % (0.5-2.0) Carcinoembryonic Antigen Pending Hepatitis A IgM Antibody Pending Hepatitis B Surface Antigen Pending Hepatitis B Core IgM Antibody Pending Hepatitis C Antibody Pending HIV (1&2) Antibody Rapid Negative (NEGATIVE) Microbiology Date/Time Source Procedure Growth Status 01/26/19 23:30 Rectum Received José Mcdonald MD Jan 27, 2019 14:33
--- NOTE | 2019-01-27 15:57 | NUR ---
NURSE NOTES: EKG done and latest troponin level 0.048 received, Dr Mcdonald informed and made aware.
--- NOTE | 2019-01-27 16:30 | Consultation ---
DATE OF CONSULTATION: 01/27/2019 CARDIOLOGY CONSULTATION CONSULTING PHYSICIAN: José Mcdonald M.D. REFERRING PHYSICIAN: Benji Springer D.O. REASON FOR CONSULTATION: Possible syncope. HISTORY OF PRESENT ILLNESS: The patient is a 73-year-old gentleman with history of hypertension, diabetes, history of CVA, history of PEG placement that currently is removed, who was found to be severely anemic and also [facility]. The patient was admitted and Cardiology consultation was obtained for further evaluation and management. REVIEW OF SYSTEMS: Negative other than what was mentioned in history of present illness. PAST MEDICAL HISTORY: As mentioned above. FAMILY HISTORY: Noncontributory. SOCIAL HISTORY: He lives in a [facility]. Does not smoke or drink alcohol. MEDICATIONS: Include allopurinol, Lipitor, Coreg, famotidine, ferrous sulfate, insulin. PHYSICAL EXAMINATION: VITAL SIGNS: Show blood pressure of 140/75, pulse 62, respirations 18, and temperature 97.5. HEAD AND NECK: Showed no JVD. LUNGS: Clear. CARDIOVASCULAR: Shows regular S1 and S2 with no gallop. ABDOMEN: Soft. EXTREMITIES: No pitting edema. DIAGNOSTIC DATA: EKG shows sinus rhythm with left axis deviation, nonspecific intraventricular conduction delay. Labs show white count of 5.0, hemoglobin 9, hematocrit 28, and platelet count is 80,000. His sodium 147, potassium 4.4, BUN of 36, creatinine 2.5, and glucose of 129. His troponin is negative and BNP is more than 3000. ASSESSMENT AND PLAN: 1. Shortness of breath and elevated brain natriuretic peptide of more than 3000, could be due to congestive heart failure. We will get an echocardiogram to evaluate for ejection fraction and wall motion abnormality. In the meantime, the patient is on Lasix 40 mg daily. 2. Hypertension, on Coreg 3.125 mg b.i.d. and Lasix. The patient is on p.r.n. hydralazine. The patient also started on a dose of clonidine 0.1 mg 4 times a day. 3. Hyperlipidemia, on Lipitor. 4. Anemia. Further evaluation by Dr. Mayo. 5. Altered mental status versus syncope. The patient on telemetry. Get an echocardiogram for further evaluation. 6. Diabetes. Thank you very much for allowing me to participate in the care of this patient. Please do not hesitate to contact me for any questions regarding my evaluation. José Mcdonald M.D. DR: Mirlande JOB#: [id number] CC:
--- NOTE | 2019-01-27 16:30 | Consultation ---
DATE OF CONSULTATION: 01/27/2019 CONSULTING PHYSICIAN: Boris Armendariz M.D. REASON FOR CONSULTATION: 1. Acute kidney injury. 2. CKD, stage 4. 3. Volume depletion. HISTORY OF PRESENT ILLNESS: The patient is a pleasant 73-year-old gentleman with known CVA, status post PEG that has been removed along with diabetes, sent in from his [facility]-way facility for evaluation of possible presyncopal episode when noted to be anemic with an elevated creatinine from baseline. His creatinine upon presentation was 2.9. The patient has baseline creatinine approximately 1.8 to 2. The patient was initiated on IV fluids. His creatinine today has improved to 2.5. His serum sodium has also improved and is currently 147. ALLERGIES: No known drug allergies. FAMILY HISTORY: Positive for hypertension. PAST MEDICAL HISTORY: 1. CVA. 2. Contracted multiple joints. 3. Anemia. 4. Diabetes mellitus. 5. CKD, stage 4. 6. Gouty arthritis. PAST SURGICAL HISTORY: PEG removal. REVIEW OF SYSTEMS: Cannot obtain as the patient is not conversant. LABORATORY DATA: Laboratories dated January 27, 2019, sodium 147, potassium 4.4, BUN 36, creatinine 2.5. Hemoglobin 9, white cell count 5.2, and platelet count 80. PHYSICAL EXAMINATION: VITAL SIGNS: Blood pressure 147/74, respiratory rate 18, pulse 64, temperature 97.3. GENERAL: The patient awake, arousable, no overt distress. HEENT: Extraocular muscles intact. No lymphadenopathy noted. Oropharyngeal mucosa clear and dry. CARDIOVASCULAR: S1, S2. No rubs or gallops. PULMONARY: Mild upper rhonchi. Fair air movement in all lung richter. ABDOMEN: Soft, nontender. EXTREMITIES: No edema. ASSESSMENT AND PLAN: 1. Acute kidney injury on CKD stage 4, most likely secondary to component of intravascular volume depletion. Creatinine has improved to 2.5. Avoid hypotensive episodes. We will discontinue CORDELL inhibitor and continue IV hydration. 2. Hypernatremia secondary to volume depletion. At this time, we will continue hypotonic solution and monitor levels carefully. 3. Hypertension, stable. Avoid any CORDELL inhibitors until renal function stabilize. 4. Anemia. Defer management to Hematology. Boris Armendariz MD DR: HIMANSHU JOB#: [id number] CC:
--- NOTE | 2019-01-27 17:00 | NUR ---
NURSE NOTES: Blood sugar 63, d50% 25ml given per protocol. Patient is awake, alert, responsive; no change in LOC. Rechecked blood sugar 108 post treatment. Will continue to monitor.
--- NOTE | 2019-01-27 19:29 | NUR ---
HAND-OFF: Report given to ISHMAEL Rodriguez. Patient in stable condition.
--- NOTE | 2019-01-27 21:11 | NUR ---
NURSE NOTES: Blood glucose 60mg/dl rechecked 59mg/dl, d50% 50ml given per protocol. Patient is awake, alert, responsive; no change in LOC. no s/s of hypoglycemia. will rechecked in 15 minutes.. Will continue to monitor.
--- NOTE | 2019-01-27 21:21 | NUR ---
NURSE NOTES: Rechecked blood glucose 140mg/dl. patient resting easily arousable to verbal and tactile stimuli. denies any pain or discomfort. no s/s of acute distress noted. will continue to monitor patient.
--- NOTE | 2019-01-27 23:06 | NUR ---
NURSE NOTES: Received report from Nilo QUIÑONES. patient in bed resting, alert able to make needs known to staff. No SOB oxygen saturation 97% room air. HOB elevated. No s/s of acute distress noted. no s/s of hypo/hyperglycemia. skin warm and dry to touch. On P200 mattress for sacral pressure sore management. Right ac IV line intact running 1/2 NS at 60cc/hr. Instructed patient to use call light for assistance. Bed alarm on. bed locked and in low position. external cath intact draining well. Call light within easy reach. will continue plan of care. Addendum: 01/27/19 at 2312 by CHANTELLE MORRIS RN wrong time, correct time 1934
[2019-01-28] VITALS: BP 145/76
[2019-01-28 04:00] VITALS: BP 155/85
[2019-01-28] MEDS: NovoLOG Insulin Flexpen SUBQ SCH ×4 (06:30→22:05)
[2019-01-28] MEDS: Levemir Flexpen SUBQ SCH (06:30)
--- NOTE | 2019-01-28 07:14 | NUR ---
HAND-OFF: Report given to Eri QUIÑONES.
--- NOTE | 2019-01-28 07:15 | NUR ---
NURSE NOTES: Received pt from ISHMAEL Rodriguez in stable condition w/ no cardiopulmonary distress noted. Pt is awake in bed, AAOx3 on RA, SB on color television console monitor (54 bpm). Per Jennifer coreg and clonidine have been held d/t SB, will follow up w/ Dr. Mcdonald. Skin alterations noted. LAC 20g IV noted. SCDs on bilat lower extremities. Bed in lowest position w/alarm on, call light within reach, side rails up x 2. Will continue to monitor.
[2019-01-28 08:00] VITALS: BP 200/97
[2019-01-28] MEDS: Docusate 100mg cap ORAL SCH (09:18)
[2019-01-28] MEDS: Allopurinol 100mg Tab ORAL SCH (09:18)
--- NOTE | 2019-01-28 10:32 | Nephrology Progress Note ---
Assessment/Plan Assessment/Plan: 1. Acute kidney injury on CKD stage 4, most likely secondary to component of intravascular volume depletion. - Cr down to 2.5 - AM labs pending 2. Hypernatremia secondary to volume depletion. - improved. IVFs stopped - AM labs pending 3. Hypertension- elevated Avoid any CORDELL inhibitors until renal function stabilize. Coreg. Clonidine DCed Added Hydralazine 4. Anemia. Defer management to Hematology. Subjective Date patient seen: Jan 28, 2019 Time patient seen: 10:23 ROS Limited/Unobtainable: No Allergies: Coded Allergies: No Known Allergies (Unverified , 07/14/17) Subjective Patient eating breakfast Objective Last 24 Hour Vital Signs Date Time Temp Pulse Resp B/P (MAP) Pulse Ox O2 Delivery O2 Flow Rate FiO2 01/28/19 09:17 200/97 01/28/19 09:00 54 200/97 01/28/19 09:00 200/97 01/28/19 08:00 97.9 54 16 200/97 (131) 99 01/28/19 08:00 53 01/28/19 04:00 97.7 47 18 155/85 (108) 100 01/28/19 04:00 45 01/28/19 00:00 44 01/28/19 00:00 97.7 45 18 145/76 (99) 100 01/27/19 21:00 Room Air 01/27/19 21:00 45 159/76 01/27/19 21:00 159/76 01/27/19 20:00 97.8 45 18 159/76 (103) 100 01/27/19 19:43 44 01/27/19 16:00 97.5 50 18 131/69 (89) 100 01/27/19 15:25 52 01/27/19 13:03 140/75 01/27/19 12:00 97.5 62 18 140/75 (96) 100 01/27/19 11:40 61 Intake and Output 01/27/19 01/28/19 19:00 07:00 Intake Total 720 ml 660 ml Output Total 500 ml 550 ml Balance 220 ml 110 ml Intake Oral 300 ml IV Total 420 ml 660 ml Output Urine Total 500 ml 550 ml Laboratory Tests 01/27/19 15:05: Troponin I 0.048 01/27/19 23:30: Troponin I 0.029 Height (Feet): 6 Height (Inches): 3.00 Weight (Pounds): 184 General Appearance: no apparent distress EENT: normal ENT inspection Neck: normal alignment, supple Cardiovascular: normal rate, regular rhythm Respiratory/Chest: normal breath sounds Abdomen: non tender, soft Edema: no edema noted Arm (L), no edema noted Arm (R), no edema noted Leg (L), no edema noted Leg (R), no edema noted Pedal (L), no edema noted Pedal (R), no edema noted Generalized Boris Armendariz MD Jan 28, 2019 10:32
[2019-01-28] MEDS ORDERED: Labetalol 5mg/ml 20ml vial IV PRN (10:45)
--- NOTE | 2019-01-28 10:46 | General Progress Note ---
Assessment/Plan Problem List: (1) Hypertension ICD Codes: I10 - Essential (primary) hypertension SNOMED: 94346359 (2) Diabetes mellitus ICD Codes: E11.9 - Type 2 diabetes mellitus without complications SNOMED: 29931951 (3) Acute encephalopathy ICD Codes: G93.40 - Encephalopathy, unspecified SNOMED: 85276041, 870918155 (4) History of acute gouty arthritis ICD Codes: Z87.39 - Personal history of other diseases of the musculoskeletal system and connective tissue SNOMED: 328811476 (5) History of CVA (cerebrovascular accident) ICD Codes: Z86.73 - Personal history of transient ischemic attack (TIA), and cerebral infarction without residual deficits SNOMED: 404668373 (6) Severe anemia ICD Codes: D64.9 - Anemia, unspecified SNOMED: 808832396 Status: stable, progressing Assessment/Plan: pt diet cardio f/u cbc bmp aru eval Subjective Constitutional: Reports: weakness Allergies: Coded Allergies: No Known Allergies (Unverified , 07/14/17) All Systems: reviewed and negative except above Subjective sleepy in bed Objective Last 24 Hour Vital Signs Date Time Temp Pulse Resp B/P (MAP) Pulse Ox O2 Delivery O2 Flow Rate FiO2 01/28/19 09:17 200/97 01/28/19 09:00 54 200/97 01/28/19 09:00 200/97 01/28/19 08:00 97.9 54 16 200/97 (131) 99 01/28/19 08:00 53 01/28/19 04:00 97.7 47 18 155/85 (108) 100 01/28/19 04:00 45 01/28/19 00:00 44 01/28/19 00:00 97.7 45 18 145/76 (99) 100 01/27/19 21:00 Room Air 01/27/19 21:00 45 159/76 01/27/19 21:00 159/76 01/27/19 20:00 97.8 45 18 159/76 (103) 100 01/27/19 19:43 44 01/27/19 16:00 97.5 50 18 131/69 (89) 100 01/27/19 15:25 52 01/27/19 13:03 140/75 01/27/19 12:00 97.5 62 18 140/75 (96) 100 01/27/19 11:40 61 Intake and Output 01/27/19 01/28/19 19:00 07:00 Intake Total 720 ml 660 ml Output Total 500 ml 550 ml Balance 220 ml 110 ml Intake Oral 300 ml IV Total 420 ml 660 ml Output Urine Total 500 ml 550 ml Laboratory Tests 01/27/19 15:05: Troponin I 0.048 01/27/19 23:30: Troponin I 0.029 Height (Feet): 6 Height (Inches): 3.00 Weight (Pounds): 184 General Appearance: lethargic EENT: normal ENT inspection Neck: normal alignment Cardiovascular: normal peripheral pulses, normal rate, regular rhythm Respiratory/Chest: chest wall non-tender, lungs clear, normal breath sounds Abdomen: normal bowel sounds, non tender, soft Extremities: normal inspection Edema: no edema noted Arm (L), no edema noted Arm (R), no edema noted Leg (L), no edema noted Leg (R), no edema noted Pedal (L), no edema noted Pedal (R), no edema noted Generalized Neurologic: motor weakness Skin: normal pigmentation, warm/dry Benji Springer DO Jan 28, 2019 10:45
--- NOTE | 2019-01-28 11:55 | NUR ---
NURSE NOTES Left message for Dr. Springer regarding lab results (gram + cocci in clusters in 1 bottle of blood). Instructed to place consult order with Dr. Preston.
[2019-01-28 12:00] VITALS: BP 141/79
[2019-01-28] MEDS: HydrALAZINE 50mg tab ORAL SCH ×2 (13:37→22:03)
--- NOTE | 2019-01-28 15:16 | Cardiology Report ---
APPROVED REPORT EKG Measurement Heart [id number] MT [id number] Sinus bradycardia with sinus arrhythmia with 1st degree AV block Right bundle branch block Left anterior fascicular block Bifascicular block Cannot rule out Inferior infarct (masked by fascicular block?), age undetermined T wave abnormality, consider lateral ischemia Abnormal ECG
--- NOTE | 2019-01-28 15:18 | Cardiology Report ---
APPROVED REPORT EKG Measurement Heart [id number] IA 188P31 [id number] Normal sinus rhythm Left axis deviation Nonspecific intraventricular block Cannot rule out Inferior infarct (masked by fascicular block?), age undetermined Abnormal ECG
[2019-01-28 16:00] VITALS: BP 145/89
--- NOTE | 2019-01-28 16:00 | Pulmonology Progress Note ---
Assessment/Plan Problems: (1) Severe anemia (2) Hypertension (3) At high risk for aspiration (4) Acute encephalopathy (5) Contracture of multiple joints (6) History of acute gouty arthritis (7) History of CVA (cerebrovascular accident) (8) Diabetes mellitus Assessment/Plan watch h/h prbc prn monitor BP symptomatic treatment dvt prophylaxis aspiration precaution Subjective ROS Limited/Unobtainable: No HEENT: Repors: no symptoms Allergies: Coded Allergies: No Known Allergies (Unverified , 07/14/17) Objective Last 24 Hour Vital Signs Date Time Temp Pulse Resp B/P (MAP) Pulse Ox O2 Delivery O2 Flow Rate FiO2 01/28/19 13:37 141/79 01/28/19 12:00 53 01/28/19 12:00 98.7 86 18 141/79 (99) 97 01/28/19 09:17 200/97 01/28/19 09:00 Room Air 01/28/19 09:00 54 200/97 01/28/19 09:00 200/97 01/28/19 08:00 97.9 54 16 200/97 (131) 99 01/28/19 08:00 53 01/28/19 04:00 97.7 47 18 155/85 (108) 100 01/28/19 04:00 45 01/28/19 00:00 44 01/28/19 00:00 97.7 45 18 145/76 (99) 100 01/27/19 21:00 Room Air 01/27/19 21:00 45 159/76 01/27/19 21:00 159/76 01/27/19 20:00 97.8 45 18 159/76 (103) 100 01/27/19 19:43 44 01/27/19 16:00 97.5 50 18 131/69 (89) 100 Intake and Output 01/27/19 01/28/19 18:59 06:59 Intake Total 720 ml 660 ml Output Total 500 ml 550 ml Balance 220 ml 110 ml Intake Oral 300 ml IV Total 420 ml 660 ml Output Urine Total 500 ml 550 ml General Appearance: WD/WN HEENT: normocephalic Respiratory/Chest: chest wall non-tender, normal breath sounds Cardiovascular: normal peripheral pulses, regularly irregular Abdomen: normal bowel sounds, soft, non tender Neurologic/Psychiatric: golf coach II-XII grossly normal, responsive Microbiology Date/Time Source Procedure Growth Status 01/26/19 23:30 Blood Blood Culture - Preliminary Resulted 01/26/19 23:15 Blood Blood Culture - Preliminary NO GROWTH AFTER 24 HOURS Resulted 01/26/19 23:30 Rectum Received Laboratory Tests 01/27/19 23:30: Troponin I 0.029 Current Medications Medications (Trade) Dose Ordered Sig/Jethro Route PRN Reason Start Time Stop Time Status Last Admin Dose Admin Acetaminophen (Tylenol) 650 mg Q6H PRN ORAL Mild Pain/Temp > 100.5 01/27/19 05:00 02/26/19 04:59 Allopurinol (Zyloprim) 100 mg DAILY ORAL 01/27/19 09:00 02/26/19 08:59 01/28/19 09:18 Atorvastatin Calcium (Lipitor) 10 mg BEDTIME ORAL 01/27/19 21:00 02/26/19 20:59 01/27/19 21:07 Carvedilol (Coreg) 3.125 mg Q12HR ORAL 01/28/19 21:00 02/27/19 20:59 Dextrose (Dextrose 50%) 25 ml Q30M PRN IV Hypoglycemia 01/27/19 04:30 02/26/19 04:29 01/28/19 05:38 Dextrose (Dextrose 50%) 50 ml Q30M PRN IV Hypoglycemia 01/27/19 04:30 02/26/19 04:29 01/27/19 21:06 Docusate Sodium (Colace) 200 mg DAILY ORAL 01/27/19 09:00 02/26/19 08:59 01/28/19 09:18 Famotidine (Pepcid) 20 mg DAILY ORAL 01/27/19 09:00 02/26/19 08:59 01/28/19 09:18 Ferrous Sulfate (Feosol) 325 mg DAILY ORAL 01/27/19 09:00 02/26/19 08:59 01/28/19 09:17 Hydralazine HCl (Apresoline) 20 mg Q4H PRN IV sbp more than 160 01/27/19 06:30 02/26/19 06:29 01/28/19 09:17 Hydralazine HCl (Apresoline) 50 mg Q8HR ORAL 01/28/19 14:00 02/27/19 13:59 01/28/19 13:37 Insulin Aspart (NovoLOG) BEFORE MEALS AND HS SUBQ 01/27/19 06:30 02/26/19 06:29 01/28/19 12:24 Insulin Detemir (Levemir) 36 units ACBREAKFAST SUBQ 01/27/19 06:30 02/26/19 06:29 01/27/19 06:37 Labetalol HCl (Normodyne) 10 mg Q1H PRN IV For High Blood Pressure 01/28/19 10:45 02/27/19 10:44 Magnesium Hydroxide (Mom) 30 ml DAILY PRN ORAL Constipation 01/27/19 05:00 02/26/19 04:59 Morphine Sulfate (Morphine Sulfate) 2 mg Q4H PRN IVP For Pain 01/27/19 05:00 02/03/19 04:59 Dieter Hwang MD Jan 28, 2019 16:00
--- NOTE | 2019-01-28 16:32 | NUR ---
PT note PT fina completed, treatment initiated. Patient was able to sit at the EOB with poor sitting balance; tends to go into retropulsion. Patient can benefit from PT services to increase his muscle strength and ROM and balance to improve his functional mobility. Addendum: 01/28/19 at 1633 by RAS MCKINNEY PT Amended: Links added.
--- NOTE | 2019-01-28 16:45 | NUR ---
TRANSFER TO FLOOR: Patient transferred to tele room 203-1 in stable condition via hospital bed. Report given to ISHMAEL Mays. Belongings and medications also given to Tabatha. Informed Tabatha that Food tray did not arrive yet so insulin was not be administered yet- BG assessed and recorded. Pharmacy contacted for new insulin labels. Addendum: 01/28/19 at 1736 by Eri Hines RN Amendment: spoke to Sudarshan from pharmacy- no new labels required d/t tele overflow.
[2019-01-28] MEDS ORDERED: 1/2 NS 1000ml IV ONE (16:46)
--- NOTE | 2019-01-28 17:00 | NUR ---
NURSE NOTES: Received report from Eri QUIÑONES. Pt. in bed, awake, not in distress. Denies pain at present. IV at left AC #20g. in placed patent/intact. Bed in low position, locked. Call light within reach. Will cont. to monitor.
--- NOTE | 2019-01-28 19:08 | Cardiac Electrophysiology PN ---
Assessment/Plan Assessment/Plan 1. CHF due to diastolic dysfunction and elevated brain natriuretic peptide of more than 3000, Echocardiogram EF 60%. Continue Lasix 40 mg daily. 2. Hypertension, on Coreg 3.125 mg b.i.d. Hydralazine 50 q8 and Lasix. 3. Hyperlipidemia, on Lipitor. 4. Anemia. Further evaluation by Dr. Mayo. 5. Altered mental status versus syncope. The patient on telemetry. 6. Diabetes. Subjective Subjective Alert in NAD. No CP or SOB. In SR. Was edd in 40s in am while sleeping Objective Last 24 Hour Vital Signs Date Time Temp Pulse Resp B/P (MAP) Pulse Ox O2 Delivery O2 Flow Rate FiO2 01/28/19 16:00 97.9 85 16 145/89 (107) 98 01/28/19 16:00 84 01/28/19 13:37 141/79 01/28/19 12:00 53 01/28/19 12:00 98.7 86 18 141/79 (99) 97 01/28/19 09:17 200/97 01/28/19 09:00 Room Air 01/28/19 09:00 54 200/97 01/28/19 09:00 200/97 01/28/19 08:00 97.9 54 16 200/97 (131) 99 01/28/19 08:00 53 01/28/19 04:00 97.7 47 18 155/85 (108) 100 01/28/19 04:00 45 01/28/19 00:00 44 01/28/19 00:00 97.7 45 18 145/76 (99) 100 01/27/19 21:00 Room Air 01/27/19 21:00 45 159/76 01/27/19 21:00 159/76 01/27/19 20:00 97.8 45 18 159/76 (103) 100 01/27/19 19:43 44 Intake and Output 01/27/19 01/28/19 18:59 06:59 Intake Total 720 ml 660 ml Output Total 500 ml 550 ml Balance 220 ml 110 ml Intake Oral 300 ml IV Total 420 ml 660 ml Output Urine Total 500 ml 550 ml Laboratory Tests Test 01/27/19 23:30 Troponin I 0.029 ng/mL (0.000-0.056) Microbiology Date/Time Source Procedure Growth Status 01/26/19 23:30 Blood Blood Culture - Preliminary Resulted 01/26/19 23:15 Blood Blood Culture - Preliminary NO GROWTH AFTER 24 HOURS Resulted 01/26/19 23:30 Rectum Received Objective HEAD AND NECK: Showed no JVD. LUNGS: Clear. CARDIOVASCULAR: Shows regular S1 and S2 with no gallop. ABDOMEN: Soft. EXTREMITIES: No pitting edema. José Mcdonald MD Jan 28, 2019 19:08
--- NOTE | 2019-01-28 19:41 | NUR ---
HAND-OFF: Report given to Fozia QUIÑONES. Pt. remain stable.
--- NOTE | 2019-01-28 19:42 | NUR ---
NURSE NOTES: Pt observed in bed, semi fowlers position, awake, not in distress. Denies pain at present. IV at left AC #20g, patent, TKO. Bed in low position, locked. Call light within reach. Will cont. to monitor.
[2019-01-28 20:00] VITALS: BP 143/83
[2019-01-29] VITALS: BP 142/73
--- NOTE | 2019-01-29 03:15 | Consultation ---
DATE OF CONSULTATION: 01/28/2019 PSYCHOTHERAPY CONSULTATION PROGRESS NOTE CONSULTING PHYSICIAN: Henri Michaud PsyD. TREATING ATTENDING PHYSICIAN: Benji Springer D.O. HISTORY OF PRESENT ILLNESS: This is a 73-year-old male patient. He is from [facility]. This patient was brought to the hospital for syncope and anemia and the patient was referred for psychotherapeutic services. He has been very confused and disorganized, depressed. Today, I assessed the patient. The patient is awake and remains very confused. For these reasons, he does have episodes of depression. He states that his in 2005 [facility] with 3 children. . For these reasons, he states that he feels depressed. He denies suicidal or homicidal thoughts of ideation. Denies any auditory or visual hallucinations. The patient does have some confusion as well, having difficulty recalling past history and difficulty recalling hospital setting. The patient is not very cooperative. PAST MEDICAL HISTORY: as well as anemia. ALLERGIES: The patient has no known drug allergies. SUBSTANCE ABUSE HISTORY: The patient denies history of alcohol use, illicit substance use, or smoking cigarettes. PSYCHIATRIC HISTORY: The patient has a possible history of depression. SOCIAL HISTORY: The patient is a 73-year-old male patient [facility]. Financially sustained through [employer]. MENTAL STATUS EXAMINATION: The patient is alert and oriented to place and person. Mood is dysphoric. Affect blunted. Thought process, disorganized. Thought content, confused. The patient has poor attention and concentration. Poor insight, judgement, and impulse control. TODAY, I ASSESSED THE PATIENT AND PROVIDED THE PATIENT WITH: 1. Reality orientation with a focus on improving cognitive function of the patient, who is very confused and disorganized. Oriented to person, place, time, and situation. 2. Provided the patient with supportive psychotherapy, which would provide the patient means to be able to respond or verbalize the patient's moods and thoughts. However, the patient remains a very poor historian. Unable to care for his basic needs and requires continued hospitalization for effective stabilization. DIAGNOSIS: Major depressive disorder, recurrent, moderate without psychotic features. PLAN: Plan is to maintain medication compliance, assist with positive coping skills, and stabilizing thoughts and behavior. denied suicidal or homicidal thoughts of ideation. This clinician has reviewed the patient's chart and discussed the treatment with treatment team. Henri Michaud PsyD. DR: SARAH JOB#: [id number] CC:
[2019-01-29 04:00] VITALS: BP 98/62
--- NOTE | 2019-01-29 04:52 | NUR ---
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 MD will be informed this morning. Pt will be moved to Rm [id number] for isolation precautions
[2019-01-29] MEDS: HydrALAZINE 50mg tab ORAL SCH ×3 (06:00→21:14)
[2019-01-29] MEDS: NovoLOG Insulin Flexpen SUBQ SCH ×4 (07:00→21:15)
[2019-01-29] MEDS: Levemir Flexpen SUBQ SCH (07:01)
--- NOTE | 2019-01-29 07:31 | NUR ---
HAND-OFF: Report given to ISHMAEL Martinez.
--- NOTE | 2019-01-29 07:32 | NUR ---
NURSE NOTES: Received bedside update report from Fozia QUIÑONES. Pt. in bed, awake, a/o x 1-2. No sign of distress. On R.A. Denies pain at present. IV at left AC #20g. in placed patent/intact. Bed in low position, locked. Call light within reach. Will cont. to monitor.
[2019-01-29 08:00] VITALS: BP 150/85
[2019-01-29 08:11] LABS: HEMATOCRIT 31.1 % (42.0-52.0); HEMOGLOBIN 10.1 G/DL (14.2-18.0); MEAN CORPUSCULAR VOLUME 100 FL (80-99); PLATELET COUNT 84 K/UL (150-450); RED BLOOD COUNT 3.12 M/UL (4.70-6.10); RED CELL DISTRIBUTION WIDTH 13.5 % (11.6-14.8); WHITE BLOOD COUNT 5.3 K/UL (4.8-10.8)
[2019-01-29 08:46] LABS: ANION GAP 8 mmol/L (5-15); BLOOD UREA NITROGEN 33 mg/dL (7-18); CALCIUM 8.3 MG/DL (8.5-10.1); CARBON DIOXIDE 23 MMOL/L (21-32); CHLORIDE 112 MMOL/L (98-107); CREATININE 2.6 MG/DL (0.55-1.30); POTASSIUM 4.7 MMOL/L (3.5-5.1); SODIUM 143 MMOL/L (136-145)
--- NOTE | 2019-01-29 08:53 | Cardiology Report ---
APPROVED REPORT EXAM: Two-dimensional and M-mode echocardiogram with Doppler and color Doppler. INDICATION Congestive Heart Failure M-Mode DIMENSIONS IVSd1.1 (0.7-1.1cm)Left Atrium (MM)4.1 (1.6-4.0cm) LVDd5.5 (3.5-5.6cm)Aortic Root3.2 (2.0-3.7cm) PWd1.8 (0.7-1.1cm)Aortic Cusp Exc.2.1 (1.5-2.0cm) IVSs1.5 cm LVDs3.7 (2.5-4.0cm) PWs1.8 cm Technically difficult study due to pt's resistance . Normal left ventricular chamber size, systolic function and wall motion to extent visualized. Left ventricular ejection fraction estimated to be 60-65 %. Mild left ventricular hypertrophy by 2-D. No evidence of pericardial effusion. All other cardiac chamber sizes are within normal limits. Focal aortic valve sclerosis with adequate cusp excursion. Thickened mitral valve leaflets with normal excursion. Mitral annulus and aortic root calcification. Normal pulmonic valve structure. Normal tricuspid valve structure. IVC at normal size with physiologic collapse. A color flow and spectral Doppler study was performed and revealed: No aortic regurgitation.. Trace mitral regurgitation. Mitral diastolic velocities suggest reduced left ventricular relaxation c/w mild LV diastolic dysfunction (Grade I ). Mild tricuspid regurgitation. Tricuspid systolic velocities suggests peak right ventricular systolic pressure of 31 mmHg.
[2019-01-29] MEDS ORDERED: Furosemide 40mg tab ORAL SCH (09:00)
[2019-01-29] MEDS: Allopurinol 100mg Tab ORAL SCH (09:17)
[2019-01-29] MEDS: Docusate 100mg cap ORAL SCH (09:17)
--- NOTE | 2019-01-29 09:34 | General Progress Note ---
Assessment/Plan Problem List: (1) Hypertension ICD Codes: I10 - Essential (primary) hypertension SNOMED: 18743276 (2) Diabetes mellitus ICD Codes: E11.9 - Type 2 diabetes mellitus without complications SNOMED: 06362332 (3) Acute encephalopathy ICD Codes: G93.40 - Encephalopathy, unspecified SNOMED: 54629857, 234904566 (4) History of acute gouty arthritis ICD Codes: Z87.39 - Personal history of other diseases of the musculoskeletal system and connective tissue SNOMED: 348725106 (5) History of CVA (cerebrovascular accident) ICD Codes: Z86.73 - Personal history of transient ischemic attack (TIA), and cerebral infarction without residual deficits SNOMED: 960190864 (6) Severe anemia ICD Codes: D64.9 - Anemia, unspecified SNOMED: 263939027 Status: stable, progressing Assessment/Plan: pt diet cardio f/u cbc bmp dc to aru if all clear Subjective Constitutional: Reports: weakness Allergies: Coded Allergies: No Known Allergies (Unverified , 07/14/17) All Systems: reviewed and negative except above Subjective sleepy in bed Objective Last 24 Hour Vital Signs Date Time Temp Pulse Resp B/P (MAP) Pulse Ox O2 Delivery O2 Flow Rate FiO2 01/29/19 09:16 74 150/85 01/29/19 08:00 97.1 74 18 150/85 (106) 98 01/29/19 06:00 98/62 01/29/19 04:00 97.9 65 20 98/62 (74) 96 01/29/19 04:00 71 01/29/19 00:00 98.1 66 17 142/73 (96) 97 01/29/19 00:00 65 01/28/19 22:03 79 143/83 01/28/19 22:03 143/83 01/28/19 21:00 Room Air 01/28/19 20:00 98.0 79 18 143/83 (103) 95 01/28/19 20:00 71 01/28/19 16:00 97.9 85 16 145/89 (107) 98 01/28/19 16:00 84 01/28/19 13:37 141/79 01/28/19 12:00 53 01/28/19 12:00 98.7 86 18 141/79 (99) 97 Intake and Output 01/28/19 01/29/19 19:00 07:00 Intake Total 550 ml Output Total 500 ml 600 ml Balance 50 ml -600 ml Intake Oral 350 ml IV Total 200 ml Output Urine Total 500 ml 600 ml # Voids 1 Laboratory Tests 01/29/19 07:27: White Blood Count 5.3, Red Blood Count 3.12L, Hemoglobin 10.1L, Hematocrit 31.1L , Mean Corpuscular Volume 100H, Mean Corpuscular Hemoglobin 32.3H, Mean Corpuscular Hemoglobin Concent 32.4, Red Cell Distribution Width 13.5, Platelet Count 84L, Mean Platelet Volume 9.5, Neutrophils (%) (Auto) , Lymphocytes (%) ( Auto) , Monocytes (%) (Auto) , Eosinophils (%) (Auto) , Basophils (%) (Auto) , Neutrophils % (Manual) [Pending], Lymphocytes % (Manual) [Pending], Platelet Estimate [Pending], Platelet Morphology [Pending], Sodium Level 143, Potassium Level 4.7, Chloride Level 112H, Carbon Dioxide Level 23, Anion Gap 8, Blood Urea Nitrogen 33H, Creatinine 2.6H, Estimat Glomerular Filtration Rate , Glucose Level 135H, Calcium Level 8.3L Height (Feet): 6 Height (Inches): 3.00 Weight (Pounds): 184 General Appearance: lethargic EENT: normal ENT inspection Neck: normal alignment Cardiovascular: normal peripheral pulses, normal rate, regular rhythm Respiratory/Chest: chest wall non-tender, lungs clear, normal breath sounds Abdomen: normal bowel sounds, non tender, soft Extremities: normal inspection Edema: no edema noted Arm (L), no edema noted Arm (R), no edema noted Leg (L), no edema noted Leg (R), no edema noted Pedal (L), no edema noted Pedal (R), no edema noted Generalized Neurologic: motor weakness Skin: normal pigmentation, warm/dry Benji Springer DO Jan 29, 2019 09:34
--- NOTE | 2019-01-29 10:18 | NUR ---
DISCHARGE PLANNING PATIENT IS FROM [facility] PER 'S ORDER PATIENT HAS BEEN REFERRED TO [facility] T: [phone] F: [phone] Addendum: 01/29/19 at 1248 by JESSICA LOPEZ LVN LVN [facility] DECLINED TO ACCEPT PATIENT MESSAGE LEFT FOR DR SHAH
--- NOTE | 2019-01-29 11:15 | Nephrology Progress Note ---
Assessment/Plan Problem List: (1) Renal failure (ARF), acute on chronic (2) Hypertension (3) Diabetes mellitus (4) History of CVA (cerebrovascular accident) (5) History of acute gouty arthritis (6) Contracture of multiple joints Assessment 1. Acute kidney injury on CKD stage 4, most likely multifactorial: DM , Dehydration... 2. Hypernatremia secondary to volume depletion. 3. Hypertension- 4. Anemia. Plan monitor renal parameters avoid nephrotoxics adjust BP meds per orders echo; Normal left ventricular chamber size, systolic function and wall motion to extent visualized. Left ventricular ejection fraction estimated to be 60-65 %. Mild left ventricular hypertrophy by 2-D. No evidence of pericardial effusion. Subjective ROS Limited/Unobtainable: No Constitutional: Reports: malaise, weakness Objective Objective Last 24 Hour Vital Signs Date Time Temp Pulse Resp B/P (MAP) Pulse Ox O2 Delivery O2 Flow Rate FiO2 01/29/19 09:16 74 150/85 01/29/19 08:00 97.1 74 18 150/85 (106) 98 01/29/19 06:00 98/62 01/29/19 04:00 97.9 65 20 98/62 (74) 96 01/29/19 04:00 71 01/29/19 00:00 98.1 66 17 142/73 (96) 97 01/29/19 00:00 65 01/28/19 22:03 79 143/83 01/28/19 22:03 143/83 01/28/19 21:00 Room Air 01/28/19 20:00 98.0 79 18 143/83 (103) 95 01/28/19 20:00 71 01/28/19 16:00 97.9 85 16 145/89 (107) 98 01/28/19 16:00 84 01/28/19 13:37 141/79 01/28/19 12:00 53 01/28/19 12:00 98.7 86 18 141/79 (99) 97 Intake and Output 01/28/19 01/29/19 19:00 07:00 Intake Total 550 ml Output Total 500 ml 600 ml Balance 50 ml -600 ml Intake Oral 350 ml IV Total 200 ml Output Urine Total 500 ml 600 ml # Voids 1 Laboratory Tests 01/29/19 07:27: White Blood Count 5.3, Red Blood Count 3.12L, Hemoglobin 10.1L, Hematocrit 31.1L , Mean Corpuscular Volume 100H, Mean Corpuscular Hemoglobin 32.3H, Mean Corpuscular Hemoglobin Concent 32.4, Red Cell Distribution Width 13.5, Platelet Count 84L, Mean Platelet Volume 9.5, Neutrophils (%) (Auto) , Lymphocytes (%) ( Auto) , Monocytes (%) (Auto) , Eosinophils (%) (Auto) , Basophils (%) (Auto) , Differential Total Cells Counted 100, Neutrophils % (Manual) 42L, Lymphocytes % (Manual) 50H, Monocytes % (Manual) 5, Eosinophils % (Manual) 3, Basophils % ( Manual) 0, Band Neutrophils 0, Platelet Estimate DecreasedL, Platelet Morphology Normal, Macrocytosis 1+, Sodium Level 143, Potassium Level 4.7, Chloride Level 112H, Carbon Dioxide Level 23, Anion Gap 8, Blood Urea Nitrogen 33H, Creatinine 2.6H, Estimat Glomerular Filtration Rate , Glucose Level 135H, Calcium Level 8.3L Height (Feet): 6 Height (Inches): 3.00 Weight (Pounds): 184 General Appearance: no apparent distress Cardiovascular: normal rate Respiratory/Chest: decreased breath sounds Abdomen: soft Kong Betts MD Jan 29, 2019 11:15
--- NOTE | 2019-01-29 11:19 | Cardiac Electrophysiology PN ---
Assessment/Plan Assessment/Plan 1. CHF due to diastolic dysfunction and elevated brain natriuretic peptide of more than 3000, Echocardiogram EF 60%. Continue Lasix 40 mg daily. 2. Hypertension, on Coreg 3.125 mg b.i.d. Hydralazine 50 q8 and Lasix. 3. Hyperlipidemia, on Lipitor. 4. Anemia. Further evaluation by Dr. Mayo. 5. Altered mental status versus syncope. Going to [facility] 6. Diabetes. MARANDA RN Subjective Subjective Alert in NAD. No CP or SOB. In SR. [facility]. Objective Last 24 Hour Vital Signs Date Time Temp Pulse Resp B/P (MAP) Pulse Ox O2 Delivery O2 Flow Rate FiO2 01/29/19 09:16 74 150/85 01/29/19 08:00 97.1 74 18 150/85 (106) 98 01/29/19 06:00 98/62 01/29/19 04:00 97.9 65 20 98/62 (74) 96 01/29/19 04:00 71 01/29/19 00:00 98.1 66 17 142/73 (96) 97 01/29/19 00:00 65 01/28/19 22:03 79 143/83 01/28/19 22:03 143/83 01/28/19 21:00 Room Air 01/28/19 20:00 98.0 79 18 143/83 (103) 95 01/28/19 20:00 71 01/28/19 16:00 97.9 85 16 145/89 (107) 98 01/28/19 16:00 84 01/28/19 13:37 141/79 01/28/19 12:00 53 01/28/19 12:00 98.7 86 18 141/79 (99) 97 Intake and Output 01/28/19 01/29/19 19:00 07:00 Intake Total 550 ml Output Total 500 ml 600 ml Balance 50 ml -600 ml Intake Oral 350 ml IV Total 200 ml Output Urine Total 500 ml 600 ml # Voids 1 Laboratory Tests Test 01/29/19 07:27 White Blood Count 5.3 K/UL (4.8-10.8) Red Blood Count 3.12 M/UL (4.70-6.10) L Hemoglobin 10.1 G/DL (14.2-18.0) L Hematocrit 31.1 % (42.0-52.0) L Mean Corpuscular Volume 100 FL (80-99) H Mean Corpuscular Hemoglobin 32.3 PG (27.0-31.0) H Mean Corpuscular Hemoglobin Concent 32.4 G/DL (32.0-36.0) Red Cell Distribution Width 13.5 % (11.6-14.8) Platelet Count 84 K/UL (150-450) L Mean Platelet Volume 9.5 FL (6.5-10.1) Neutrophils (%) (Auto) % (45.0-75.0) Lymphocytes (%) (Auto) % (20.0-45.0) Monocytes (%) (Auto) % (1.0-10.0) Eosinophils (%) (Auto) % (0.0-3.0) Basophils (%) (Auto) % (0.0-2.0) Differential Total Cells Counted 100 Neutrophils % (Manual) 42 % (45-75) L Lymphocytes % (Manual) 50 % (20-45) H Monocytes % (Manual) 5 % (1-10) Eosinophils % (Manual) 3 % (0-3) Basophils % (Manual) 0 % (0-2) Band Neutrophils 0 % (0-8) Platelet Estimate Decreased L Platelet Morphology Normal Macrocytosis 1+ Sodium Level 143 MMOL/L (136-145) Potassium Level 4.7 MMOL/L (3.5-5.1) Chloride Level 112 MMOL/L (98-107) H Carbon Dioxide Level 23 MMOL/L (21-32) Anion Gap 8 mmol/L (5-15) Blood Urea Nitrogen 33 mg/dL (7-18) H Creatinine 2.6 MG/DL (0.55-1.30) H Estimat Glomerular Filtration Rate mL/min (>60) Glucose Level 135 MG/DL (74-106) H Calcium Level 8.3 MG/DL (8.5-10.1) L Microbiology Date/Time Source Procedure Growth Status 01/26/19 23:30 Blood Blood Culture - Preliminary Staphylococcus Sp Coag Neg Resulted 01/26/19 23:15 Blood Blood Culture - Preliminary NO GROWTH AFTER 48 HOURS Resulted 01/26/19 23:30 Nasal Nares MRSA Culture - Final NO METHICILLIN RESISTANT STAPH AUREUS... Complete 01/26/19 23:30 Rectum VRE Culture - Final Enterococcus Faecalis - Vre Complete Objective HEAD AND NECK: Showed no JVD. LUNGS: Clear. CARDIOVASCULAR: Shows regular S1 and S2 with no gallop. ABDOMEN: Soft. EXTREMITIES: No pitting edema. José Mcdonald MD Jan 29, 2019 11:19
--- NOTE | 2019-01-29 11:38 | NUR ---
NURSE NOTES: Seen by Dr. Mcdonald cardio stand point ok for d/c to [facility].
[2019-01-29 12:00] VITALS: BP 145/94
--- NOTE | 2019-01-29 12:33 | Consultation ---
History of Present Illness General Date patient seen: Jan 29, 2019 Chief Complaint: Syncope Present Illness HPI 73 y/o M with hx of MDD, HTN, Dm2, anemia, decubitus ulcer, gouty arthritis, HLD , CKD4, CVA, dysphagia s/p PEG now removed, [facility] resident presented to ED on 01/26 with syncope, anemia and confusion. ID consulted for gram positive bacteremia. Allergies: Coded Allergies: No Known Allergies (Unverified , 07/14/17) Medication History Scheduled Allopurinol* (Allopurinol*), 100 MG ORAL DAILY, (Reported) Atorvastatin Calcium* (Lipitor*), 10 MG ORAL BEDTIME, (Reported) Carvedilol* (Carvedilol*), 3.125 MG ORAL BID, (Reported) Docusate Sodium* (Docusate Sodium*), 200 MG ORAL DAILY, (Reported) Famotidine (Pepcid), 20 MG ORAL BID, (Reported) Ferrous Sulfate* (Ferrous Sulfate*), 325 MG ORAL DAILY, (Reported) Insulin Detemir (Levemir Flexpen), 36 SUBQ ACBREAKFAST, (Reported) Insulin Regular, Human* (Novolin R*), 0 SUBQ .SLIDING SCALE, (Reported) Multivitamin With Minerals (Multivitamins With Minerals*), 1 TAB ORAL DAILY, ( Reported) Scheduled PRN Acetaminophen* (Acetaminophen 325MG Tablet*), 650 MG ORAL Q6H PRN for Mild Pain/ Temp > 100.5, (Reported) Magnesium Hydroxide* (Milk Of Magnesia*), 30 ML ORAL DAILY PRN for Constipation, (Reported) Patient History Healthcare decision maker Resuscitation status Full Code Advanced Directive on File Patient History Narrative Pmhx: as above Shx: The patient denies history of alcohol use, illicit substance use, or smoking cigarettes. Fhx: non contributory Review of Systems All Other Systems: negative except mentioned in HPI Physical Exam Physical Exam Narrative GENERAL: Calm in bed, oriented x1, in no acute distress. CARDIOVASCULAR: No murmur. LUNGS: Distant and clear. ABDOMEN: Bowel sounds positive. Nontender. Nondistended. EXTREMITIES: Show no cyanosis, clubbing, or edema. NEUROLOGIC: The patient moves all extremities, slightly weak. Last 24 Hour Vital Signs Date Time Temp Pulse Resp B/P (MAP) Pulse Ox O2 Delivery O2 Flow Rate FiO2 01/29/19 12:00 98.4 79 20 145/94 (111) 97 01/29/19 09:16 74 150/85 01/29/19 09:00 Room Air 01/29/19 08:00 97.1 74 18 150/85 (106) 98 01/29/19 06:00 98/62 01/29/19 04:00 97.9 65 20 98/62 (74) 96 01/29/19 04:00 71 01/29/19 00:00 98.1 66 17 142/73 (96) 97 01/29/19 00:00 65 01/28/19 22:03 79 143/83 01/28/19 22:03 143/83 01/28/19 21:00 Room Air 01/28/19 20:00 98.0 79 18 143/83 (103) 95 01/28/19 20:00 71 01/28/19 16:00 97.9 85 16 145/89 (107) 98 01/28/19 16:00 84 01/28/19 13:37 141/79 Intake and Output 01/28/19 01/29/19 19:00 07:00 Intake Total 550 ml Output Total 500 ml 600 ml Balance 50 ml -600 ml Intake Oral 350 ml IV Total 200 ml Output Urine Total 500 ml 600 ml # Voids 1 Laboratory Tests Test 01/29/19 07:27 White Blood Count 5.3 K/UL (4.8-10.8) Red Blood Count 3.12 M/UL (4.70-6.10) L Hemoglobin 10.1 G/DL (14.2-18.0) L Hematocrit 31.1 % (42.0-52.0) L Mean Corpuscular Volume 100 FL (80-99) H Mean Corpuscular Hemoglobin 32.3 PG (27.0-31.0) H Mean Corpuscular Hemoglobin Concent 32.4 G/DL (32.0-36.0) Red Cell Distribution Width 13.5 % (11.6-14.8) Platelet Count 84 K/UL (150-450) L Mean Platelet Volume 9.5 FL (6.5-10.1) Neutrophils (%) (Auto) % (45.0-75.0) Lymphocytes (%) (Auto) % (20.0-45.0) Monocytes (%) (Auto) % (1.0-10.0) Eosinophils (%) (Auto) % (0.0-3.0) Basophils (%) (Auto) % (0.0-2.0) Differential Total Cells Counted 100 Neutrophils % (Manual) 42 % (45-75) L Lymphocytes % (Manual) 50 % (20-45) H Monocytes % (Manual) 5 % (1-10) Eosinophils % (Manual) 3 % (0-3) Basophils % (Manual) 0 % (0-2) Band Neutrophils 0 % (0-8) Platelet Estimate Decreased L Platelet Morphology Normal Macrocytosis 1+ Sodium Level 143 MMOL/L (136-145) Potassium Level 4.7 MMOL/L (3.5-5.1) Chloride Level 112 MMOL/L (98-107) H Carbon Dioxide Level 23 MMOL/L (21-32) Anion Gap 8 mmol/L (5-15) Blood Urea Nitrogen 33 mg/dL (7-18) H Creatinine 2.6 MG/DL (0.55-1.30) H Estimat Glomerular Filtration Rate mL/min (>60) Glucose Level 135 MG/DL (74-106) H Calcium Level 8.3 MG/DL (8.5-10.1) L Height (Feet): 6 Height (Inches): 3.00 Weight (Pounds): 184 Medications Current Medications Medications (Trade) Dose Ordered Sig/Jethro Route PRN Reason Start Time Stop Time Status Last Admin Dose Admin Acetaminophen (Tylenol) 650 mg Q6H PRN ORAL Mild Pain/Temp > 100.5 01/27/19 05:00 02/26/19 04:59 Allopurinol (Zyloprim) 100 mg DAILY ORAL 01/27/19 09:00 02/26/19 08:59 01/29/19 09:17 Amlodipine Besylate (Norvasc) 5 mg DAILY ORAL 01/30/19 09:00 03/01/19 08:59 Amlodipine Besylate (Norvasc) 5 mg ONCE ORAL 01/29/19 11:30 01/29/19 13:00 Atorvastatin Calcium (Lipitor) 10 mg BEDTIME ORAL 01/27/19 21:00 02/26/19 20:59 01/28/19 22:03 Carvedilol (Coreg) 3.125 mg Q12HR ORAL 01/28/19 21:00 02/27/19 20:59 01/29/19 09:16 Dextrose (Dextrose 50%) 25 ml Q30M PRN IV Hypoglycemia 01/27/19 04:30 02/26/19 04:29 01/28/19 05:38 Dextrose (Dextrose 50%) 50 ml Q30M PRN IV Hypoglycemia 01/27/19 04:30 02/26/19 04:29 01/27/19 21:06 Docusate Sodium (Colace) 200 mg DAILY ORAL 01/27/19 09:00 02/26/19 08:59 01/29/19 09:17 Furosemide (Lasix) 40 mg DAILY ORAL 01/29/19 09:00 02/28/19 08:59 01/29/19 09:52 Hydralazine HCl (Apresoline) 10 mg Q4H PRN IV sbp more than 160 01/29/19 14:30 02/26/19 06:29 Hydralazine HCl (Apresoline) 50 mg Q8HR ORAL 01/29/19 14:00 02/27/19 13:59 Insulin Aspart (NovoLOG) BEFORE MEALS AND HS SUBQ 01/27/19 06:30 02/26/19 06:29 01/29/19 07:00 Insulin Detemir (Levemir) 36 units ACBREAKFAST SUBQ 01/27/19 06:30 02/26/19 06:29 01/29/19 07:01 Magnesium Hydroxide (Mom) 30 ml DAILY PRN ORAL Constipation 01/27/19 05:00 02/26/19 04:59 Morphine Sulfate (Morphine Sulfate) 2 mg Q4H PRN IVP For Pain 01/27/19 05:00 02/03/19 04:59 Pantoprazole (Protonix) 40 mg DAILY ORAL 01/30/19 09:00 03/01/19 08:59 Assessment/Plan Assessment/Plan: Abx: None Assessment: CONS bacteremia- suspect likely contaminant -01/26 2/4 CONS (from same bottle) Afebrile No leukcoytosis Syncopal episode MDD HTN Dm2 anemia decubitus ulcer gouty arthritis HLD CKD CVA dysphagia s/p PEG now removed NH resident Plan: -Start empiric IV Vancomycin pending repeat Bcx -f/u cx -Monitor CBC/CMP, temperatures -Bcx x2 -aspiration precautions -wound care per hospital protocol Thank you for this consultation. Will continue to follow along with you. Discussed with Marguerite Yeung M.D. Jan 29, 2019 12:33
--- NOTE | 2019-01-29 12:34 | Pulmonology Progress Note ---
Assessment/Plan Problems: (1) Severe anemia (2) Hypertension (3) At high risk for aspiration (4) Acute encephalopathy (5) Contracture of multiple joints (6) History of acute gouty arthritis (7) History of CVA (cerebrovascular accident) (8) Diabetes mellitus Assessment/Plan watch h/h prbc prn monitor BP symptomatic treatment dvt prophylaxis aspiration precaution dc planning Subjective ROS Limited/Unobtainable: No Constitutional: Reports: no symptoms HEENT: Repors: no symptoms Allergies: Coded Allergies: No Known Allergies (Unverified , 07/14/17) Objective Last 24 Hour Vital Signs Date Time Temp Pulse Resp B/P (MAP) Pulse Ox O2 Delivery O2 Flow Rate FiO2 01/29/19 12:28 79 145/94 01/29/19 12:00 98.4 79 20 145/94 (111) 97 01/29/19 09:16 74 150/85 01/29/19 09:00 Room Air 01/29/19 08:00 97.1 74 18 150/85 (106) 98 01/29/19 06:00 98/62 01/29/19 04:00 97.9 65 20 98/62 (74) 96 01/29/19 04:00 71 01/29/19 00:00 98.1 66 17 142/73 (96) 97 01/29/19 00:00 65 01/28/19 22:03 79 143/83 01/28/19 22:03 143/83 01/28/19 21:00 Room Air 01/28/19 20:00 98.0 79 18 143/83 (103) 95 01/28/19 20:00 71 01/28/19 16:00 97.9 85 16 145/89 (107) 98 01/28/19 16:00 84 01/28/19 13:37 141/79 Intake and Output 01/28/19 01/29/19 19:00 07:00 Intake Total 550 ml Output Total 500 ml 600 ml Balance 50 ml -600 ml Intake Oral 350 ml IV Total 200 ml Output Urine Total 500 ml 600 ml # Voids 1 General Appearance: WD/WN Respiratory/Chest: lungs clear, normal breath sounds Cardiovascular: normal rate, regular rhythm Abdomen: normal bowel sounds, soft, non tender Skin: no rash Neurologic/Psychiatric: alert Lymphatic: no groin adenopathy Microbiology Date/Time Source Procedure Growth Status 01/26/19 23:30 Blood Blood Culture - Preliminary Staphylococcus Sp Coag Neg Resulted 01/26/19 23:15 Blood Blood Culture - Preliminary Resulted 01/26/19 23:30 Nasal Nares MRSA Culture - Final NO METHICILLIN RESISTANT STAPH AUREUS... Complete 01/26/19 23:30 Rectum VRE Culture - Final Enterococcus Faecalis - Vre Complete Laboratory Tests 01/29/19 07:27: White Blood Count 5.3, Red Blood Count 3.12L, Hemoglobin 10.1L, Hematocrit 31.1L , Mean Corpuscular Volume 100H, Mean Corpuscular Hemoglobin 32.3H, Mean Corpuscular Hemoglobin Concent 32.4, Red Cell Distribution Width 13.5, Platelet Count 84L, Mean Platelet Volume 9.5, Neutrophils (%) (Auto) , Lymphocytes (%) ( Auto) , Monocytes (%) (Auto) , Eosinophils (%) (Auto) , Basophils (%) (Auto) , Differential Total Cells Counted 100, Neutrophils % (Manual) 42L, Lymphocytes % (Manual) 50H, Monocytes % (Manual) 5, Eosinophils % (Manual) 3, Basophils % ( Manual) 0, Band Neutrophils 0, Platelet Estimate DecreasedL, Platelet Morphology Normal, Macrocytosis 1+, Sodium Level 143, Potassium Level 4.7, Chloride Level 112H, Carbon Dioxide Level 23, Anion Gap 8, Blood Urea Nitrogen 33H, Creatinine 2.6H, Estimat Glomerular Filtration Rate , Glucose Level 135H, Calcium Level 8.3L Current Medications Medications (Trade) Dose Ordered Sig/Jethro Route PRN Reason Start Time Stop Time Status Last Admin Dose Admin Acetaminophen (Tylenol) 650 mg Q6H PRN ORAL Mild Pain/Temp > 100.5 01/27/19 05:00 02/26/19 04:59 Allopurinol (Zyloprim) 100 mg DAILY ORAL 01/27/19 09:00 02/26/19 08:59 01/29/19 09:17 Amlodipine Besylate (Norvasc) 5 mg DAILY ORAL 01/30/19 09:00 03/01/19 08:59 Amlodipine Besylate (Norvasc) 5 mg ONCE ORAL 01/29/19 11:30 01/29/19 13:00 01/29/19 12:28 Atorvastatin Calcium (Lipitor) 10 mg BEDTIME ORAL 01/27/19 21:00 02/26/19 20:59 01/28/19 22:03 Carvedilol (Coreg) 3.125 mg Q12HR ORAL 01/28/19 21:00 02/27/19 20:59 01/29/19 09:16 Dextrose (Dextrose 50%) 25 ml Q30M PRN IV Hypoglycemia 01/27/19 04:30 02/26/19 04:29 01/28/19 05:38 Dextrose (Dextrose 50%) 50 ml Q30M PRN IV Hypoglycemia 01/27/19 04:30 02/26/19 04:29 01/27/19 21:06 Docusate Sodium (Colace) 200 mg DAILY ORAL 01/27/19 09:00 02/26/19 08:59 01/29/19 09:17 Furosemide (Lasix) 40 mg DAILY ORAL 01/29/19 09:00 02/28/19 08:59 01/29/19 09:52 Hydralazine HCl (Apresoline) 10 mg Q4H PRN IV sbp more than 160 01/29/19 14:30 02/26/19 06:29 Hydralazine HCl (Apresoline) 50 mg Q8HR ORAL 01/29/19 14:00 02/27/19 13:59 Insulin Aspart (NovoLOG) BEFORE MEALS AND HS SUBQ 01/27/19 06:30 02/26/19 06:29 01/29/19 12:28 Insulin Detemir (Levemir) 36 units ACBREAKFAST SUBQ 01/27/19 06:30 02/26/19 06:29 01/29/19 07:01 Magnesium Hydroxide (Mom) 30 ml DAILY PRN ORAL Constipation 01/27/19 05:00 02/26/19 04:59 Morphine Sulfate (Morphine Sulfate) 2 mg Q4H PRN IVP For Pain 01/27/19 05:00 02/03/19 04:59 Pantoprazole (Protonix) 40 mg DAILY ORAL 01/30/19 09:00 03/01/19 08:59 Dieter Hwang MD Jan 29, 2019 12:34
[2019-01-29] MEDS ORDERED: Vancomycin 1.5gm Premix IVPB SCH (15:00)
--- NOTE | 2019-01-29 15:43 | Hematology/Onc Progress Note ---
Assessment/Plan Assessment/Plan Assessment and Recs: # Anemia of chronic disease with elevated ferritin >1100, likely multifactorial , due to chronic disease --> anemia panel has been ordered, ferritin is high --> peripheral smear reviewed, and no e/o hemolysis --> okay to continue on po iron for now --> trend hgb 9.9-->9-->10.4 --> hold off on epo # Thrombocytopenia with current trend 50-100 range --> unknown etiology, hep PEDING and hiv NR --> us of abd prn --> plt transf is plt <20k --> trend 84k # Bacteremia coag neg --> VANC as per id # Diabetes mellitus --> accuchecks qac and qhs --> [id number] goal <8 --> endo eval prn # Syncope --> cards recs, ekg --> monitor for recurrence --> neuro checks # Hypernatremia --> per renal, currently on ivf # RATNA --> renal recs # Dvt ppx with hep sq Time of note does not correspond to time patient was seen. Greatly appreciate consultation. Subjective Constitutional: Denies: no symptoms, chills, fever, malaise, weakness, other HEENT: Denies: no symptoms, eye pain, blurred vision, tearing, double vision, ear pain, ear discharge, nose pain, nose congestion, throat pain, throat swelling, mouth pain, mouth swelling, other Cardiovascular: Denies: no symptoms, chest pain, edema, irregular heart rate, lightheadedness, palpitations, syncope, other Respiratory: Denies: no symptoms, cough, shortness of breath, SOB with excertion, SOB at rest, sputum, wheezing, other Gastrointestinal/Abdominal: Denies: no symptoms, abdomen distended, abdominal pain, black stools, tarry stools, blood in stool, constipated, diarrhea, difficulty swallowing, nausea, poor appetite, poor fluid intake, rectal bleeding , vomiting, other Genitourinary: Denies: no symptoms, burning, discharge, frequency, flank pain, hematuria, incontinence, pain, urgency, other Neurologic/Psychiatric: Denies: no symptoms, anxiety, depressed, emotional problems, headache, numbness, paresthesia, pre-existing deficit, seizure, tingling, tremors, weakness, other Endocrine: Denies: no symptoms, excessive sweating, flushing, intolerance to cold, intolerance to heat, increased hunger, increased thirst, increased urine, unexplained weight gain, unexplained weight loss, other Allergies: Coded Allergies: No Known Allergies (Unverified , 07/14/17) Subjective 01/29: no events to report, potentially clear for tx [facility], seen by others Objective Objective Current Medications Medications (Trade) Dose Ordered Sig/Jethro Route PRN Reason Start Time Stop Time Status Last Admin Dose Admin Acetaminophen (Tylenol) 650 mg Q6H PRN ORAL Mild Pain/Temp > 100.5 01/27/19 05:00 02/26/19 04:59 Allopurinol (Zyloprim) 100 mg DAILY ORAL 01/27/19 09:00 02/26/19 08:59 01/29/19 09:17 Amlodipine Besylate (Norvasc) 5 mg DAILY ORAL 01/30/19 09:00 03/01/19 08:59 Atorvastatin Calcium (Lipitor) 10 mg BEDTIME ORAL 01/27/19 21:00 02/26/19 20:59 01/28/19 22:03 Carvedilol (Coreg) 3.125 mg Q12HR ORAL 01/28/19 21:00 02/27/19 20:59 01/29/19 09:16 Dextrose (Dextrose 50%) 25 ml Q30M PRN IV Hypoglycemia 01/27/19 04:30 02/26/19 04:29 01/28/19 05:38 Dextrose (Dextrose 50%) 50 ml Q30M PRN IV Hypoglycemia 01/27/19 04:30 02/26/19 04:29 01/27/19 21:06 Docusate Sodium (Colace) 200 mg DAILY ORAL 01/27/19 09:00 02/26/19 08:59 01/29/19 09:17 Furosemide (Lasix) 40 mg DAILY ORAL 01/29/19 09:00 02/28/19 08:59 01/29/19 09:52 Hydralazine HCl (Apresoline) 10 mg Q4H PRN IV sbp more than 160 01/29/19 14:30 02/26/19 06:29 Hydralazine HCl (Apresoline) 50 mg Q8HR ORAL 01/29/19 14:00 02/27/19 13:59 01/29/19 14:38 Insulin Aspart (NovoLOG) BEFORE MEALS AND HS SUBQ 01/27/19 06:30 02/26/19 06:29 01/29/19 12:28 Insulin Detemir (Levemir) 36 units ACBREAKFAST SUBQ 01/27/19 06:30 02/26/19 06:29 01/29/19 07:01 Magnesium Hydroxide (Mom) 30 ml DAILY PRN ORAL Constipation 01/27/19 05:00 02/26/19 04:59 Morphine Sulfate (Morphine Sulfate) 2 mg Q4H PRN IVP For Pain 01/27/19 05:00 02/03/19 04:59 Pantoprazole (Protonix) 40 mg DAILY ORAL 01/30/19 09:00 03/01/19 08:59 Vancomycin HCl (Vanco rx to dose) 1 ea DAILY PRN MISC Per rx protocol 01/29/19 12:45 02/28/19 12:44 Vancomycin HCl/ Dextrose 275 ml @ 137.5 mls/ hr ONCE IVPB 01/29/19 15:00 01/29/19 17:00 Last 24 Hour Vital Signs Date Time Temp Pulse Resp B/P (MAP) Pulse Ox O2 Delivery O2 Flow Rate FiO2 01/29/19 14:38 145/94 01/29/19 12:28 79 145/94 01/29/19 12:00 98.4 79 20 145/94 (111) 97 01/29/19 11:41 67 01/29/19 09:16 74 150/85 01/29/19 09:00 Room Air 01/29/19 08:00 97.1 74 18 150/85 (106) 98 01/29/19 07:38 69 01/29/19 06:00 98/62 01/29/19 04:00 97.9 65 20 98/62 (74) 96 01/29/19 04:00 71 01/29/19 00:00 98.1 66 17 142/73 (96) 97 01/29/19 00:00 65 01/28/19 22:03 79 143/83 01/28/19 22:03 143/83 01/28/19 21:00 Room Air 01/28/19 20:00 98.0 79 18 143/83 (103) 95 01/28/19 20:00 71 01/28/19 16:00 97.9 85 16 145/89 (107) 98 01/28/19 16:00 84 01/28/19 13:37 141/79 01/28/19 12:00 53 01/28/19 12:00 98.7 86 18 141/79 (99) 97 01/28/19 09:17 200/97 01/28/19 09:00 Room Air 01/28/19 09:00 54 200/97 01/28/19 09:00 200/97 01/28/19 08:00 97.9 54 16 200/97 (131) 99 01/28/19 08:00 53 01/28/19 04:00 97.7 47 18 155/85 (108) 100 01/28/19 04:00 45 01/28/19 00:00 44 01/28/19 00:00 97.7 45 18 145/76 (99) 100 01/27/19 21:00 Room Air 01/27/19 21:00 45 159/76 01/27/19 21:00 159/76 01/27/19 20:00 97.8 45 18 159/76 (103) 100 01/27/19 19:43 44 01/27/19 16:00 97.5 50 18 131/69 (89) 100 Intake and Output 01/28/19 01/29/19 19:00 07:00 Intake Total 550 ml Output Total 500 ml 600 ml Balance 50 ml -600 ml Intake Oral 350 ml IV Total 200 ml Output Urine Total 500 ml 600 ml # Voids 1 Labs Test 01/26/19 22:30 01/26/19 22:49 01/26/19 22:55 01/27/19 07:00 White Blood Count 5.2 K/UL (4.8-10.8) Red Blood Count 3.05 M/UL (4.70-6.10) Hemoglobin 9.9 G/DL (14.2-18.0) Hematocrit 28.7 % (42.0-52.0) Mean Corpuscular Volume 94 FL (80-99) Mean Corpuscular Hemoglobin 32.5 PG (27.0-31.0) Mean Corpuscular Hemoglobin Concent 34.5 G/DL (32.0-36.0) Red Cell Distribution Width 12.7 % (11.6-14.8) Platelet Count 92 K/UL (150-450) Mean Platelet Volume 7.7 FL (6.5-10.1) Neutrophils (%) (Auto) % (45.0-75.0) Lymphocytes (%) (Auto) % (20.0-45.0) Monocytes (%) (Auto) % (1.0-10.0) Eosinophils (%) (Auto) % (0.0-3.0) Basophils (%) (Auto) % (0.0-2.0) Differential Total Cells Counted 100 Neutrophils % (Manual) 51 % (45-75) Lymphocytes % (Manual) 43 % (20-45) Monocytes % (Manual) 4 % (1-10) Eosinophils % (Manual) 2 % (0-3) Basophils % (Manual) 0 % (0-2) Band Neutrophils 0 % (0-8) Platelet Estimate Decreased Platelet Morphology Normal Hypochromasia 2+ Anisocytosis 1+ Prothrombin Time 10.4 SEC (9.30-11.50) Prothromb Time International Ratio 1.0 (0.9-1.1) Activated Partial Thromboplast Time 27 SEC (23-33) Sodium Level 145 MMOL/L (136-145) 147 MMOL/L (136-145) Potassium Level 4.9 MMOL/L (3.5-5.1) 4.4 MMOL/L (3.5-5.1) Chloride Level 111 MMOL/L (98-107) 114 MMOL/L (98-107) Carbon Dioxide Level 27 MMOL/L (21-32) 24 MMOL/L (21-32) Anion Gap 7 mmol/L (5-15) 9 mmol/L (5-15) Blood Urea Nitrogen 40 mg/dL (7-18) 36 mg/dL (7-18) Creatinine 2.9 MG/DL (0.55-1.30) 2.5 MG/DL (0.55-1.30) Estimat Glomerular Filtration Rate mL/min (>60) mL/min (>60) Glucose Level 233 MG/DL (74-106) 129 MG/DL (74-106) Calcium Level 8.2 MG/DL (8.5-10.1) 7.9 MG/DL (8.5-10.1) Phosphorus Level 3.7 MG/DL (2.5-4.9) Magnesium Level 1.8 MG/DL (1.8-2.4) Total Bilirubin 0.5 MG/DL (0.2-1.0) Aspartate Amino Transf (AST/SGOT) 11 U/L (15-37) Alanine Aminotransferase (ALT/SGPT) 11 U/L (12-78) Alkaline Phosphatase 82 U/L (46-116) Total Creatine Kinase 31 U/L (26-308) Creatine Kinase MB 1.3 NG/ML (0.0-3.6) Creatine Kinase MB Relative Index 4.1 Troponin I 0.022 ng/mL (0.000-0.056) 0.026 ng/mL (0.000-0.056) Pro-B-Type Natriuretic Peptide 3065 pg/mL (0-125) Total Protein 6.8 G/DL (6.4-8.2) Albumin 2.7 G/DL (3.4-5.0) Globulin 4.1 g/dL Albumin/Globulin Ratio 0.7 (1.0-2.7) Lactic Acid Level 1.40 mmol/L (0.4-2.0) Urine Color Pale yellow Urine Appearance Slightly cloudy Urine pH 5 (4.5-8.0) Urine Specific [place] 1.015 (1.005-1.035) Urine Protein 3+ (NEGATIVE) Urine Glucose (UA) 1+ (NEGATIVE) Urine Ketones Negative (NEGATIVE) Urine Blood 3+ (NEGATIVE) Urine Nitrite Negative (NEGATIVE) Urine Bilirubin Negative (NEGATIVE) Urine Urobilinogen Normal MG/DL (0.0-1.0) Urine Leukocyte Esterase Negative (NEGATIVE) Urine RBC 5-10 /HPF (0 - 0) Urine WBC 0-2 /HPF (0 - 0) Urine Squamous Epithelial Cells Occasional /LPF Urine Amorphous Sediment Many /LPF (NONE) Urine Bacteria Occasional /HPF (NONE) Iron Level 88 ug/dL (50-175) Total Iron Binding Capacity 132 ug/dL (250-450) Percent Iron Saturation 67 % (15-50) Unsaturated Iron Binding 44 ug/dL (112-346) Ferritin 1134 NG/ML (8-388) Lactate Dehydrogenase 125 U/L (81-234) Vitamin B12 Level 433 PG/ML (193-986) Test 01/27/19 07:02 01/27/19 15:05 01/27/19 23:30 01/29/19 07:27 White Blood Count 5.2 K/UL (4.8-10.8) 5.3 K/UL (4.8-10.8) Red Blood Count 2.79 M/UL (4.70-6.10) 3.12 M/UL (4.70-6.10) Hemoglobin 9.0 G/DL (14.2-18.0) 10.1 G/DL (14.2-18.0) Hematocrit 28.0 % (42.0-52.0) 31.1 % (42.0-52.0) Mean Corpuscular Volume 100 FL (80-99) 100 FL (80-99) Mean Corpuscular Hemoglobin 32.4 PG (27.0-31.0) 32.3 PG (27.0-31.0) Mean Corpuscular Hemoglobin Concent 32.3 G/DL (32.0-36.0) 32.4 G/DL (32.0-36.0) Red Cell Distribution Width 13.1 % (11.6-14.8) 13.5 % (11.6-14.8) Platelet Count 80 K/UL (150-450) 84 K/UL (150-450) Mean Platelet Volume 9.3 FL (6.5-10.1) 9.5 FL (6.5-10.1) Neutrophils (%) (Auto) % (45.0-75.0) % (45.0-75.0) Lymphocytes (%) (Auto) % (20.0-45.0) % (20.0-45.0) Monocytes (%) (Auto) % (1.0-10.0) % (1.0-10.0) Eosinophils (%) (Auto) % (0.0-3.0) % (0.0-3.0) Basophils (%) (Auto) % (0.0-2.0) % (0.0-2.0) Differential Total Cells Counted 100 100 Neutrophils % (Manual) 23 % (45-75) 42 % (45-75) Lymphocytes % (Manual) 66 % (20-45) 50 % (20-45) Monocytes % (Manual) 6 % (1-10) 5 % (1-10) Eosinophils % (Manual) 5 % (0-3) 3 % (0-3) Basophils % (Manual) 0 % (0-2) 0 % (0-2) Band Neutrophils 0 % (0-8) 0 % (0-8) Platelet Estimate Decreased Decreased Platelet Morphology Normal Normal Macrocytosis 1+ 1+ Reticulocyte Count 0.5 % (0.5-2.0) HIV (1&2) Antibody Rapid Negative (NEGATIVE) Troponin I 0.048 ng/mL (0.000-0.056) 0.029 ng/mL (0.000-0.056) Sodium Level 143 MMOL/L (136-145) Potassium Level 4.7 MMOL/L (3.5-5.1) Chloride Level 112 MMOL/L (98-107) Carbon Dioxide Level 23 MMOL/L (21-32) Anion Gap 8 mmol/L (5-15) Blood Urea Nitrogen 33 mg/dL (7-18) Creatinine 2.6 MG/DL (0.55-1.30) Estimat Glomerular Filtration Rate mL/min (>60) Glucose Level 135 MG/DL (74-106) Calcium Level 8.3 MG/DL (8.5-10.1) Height (Feet): 6 Height (Inches): 3.00 Weight (Pounds): 184 Objective Physical Exam Gen: alert, Chronically Ill ENT: normal ENT inspection Pulm: ctab, no cwr CV: regular rate, rhythm, no edema GI: soft, nt, nd Msk: normal inspection, back normal Neurologic: normal inspection, alert, responsive, speech normal Bear Mayo MD Jan 29, 2019 15:43
--- NOTE | 2019-01-29 15:43 | NUR ---
CASE MANAGEMENT:REVIEW 73 YR OLD MALE BIBA FROM [facility] [place] CC: SYNCOPE SI: SYNCOPE. ANEMIA 97.5 70 16 182/88 96% ON RA H/H-9.9/28.7 BUN+40 CR+2.9 IS: 1L NS BOLUS CHEST XRAY BLOOD CX : TO TELEMETRY INTERQUAL CRITERIA MET
[2019-01-29 16:00] VITALS: BP 131/51
--- NOTE | 2019-01-29 19:06 | NUR ---
HAND-OFF: Report given to Suzie RN. Pt. is for med/surg. Pt. remain stable.
--- NOTE | 2019-01-29 19:07 | NUR ---
NURSE NOTES: Received bedside report from ISHMAEL Mays.Patient stable,no c/o pain,no respiratory distress at this moment,SR on sledger,tolerated r/air well,BS active in all quadrants,IV asymptomatic,intact on L AC 20G TKO,bed secured in a low safety position,call light within a reach,will continue to monitor and follow POC.
[2019-01-29 20:00] VITALS: BP 148/66
[2019-01-30] VITALS: BP 124/64
[2019-01-30 04:00] VITALS: BP 130/72
[2019-01-30] MEDS: HydrALAZINE 50mg tab ORAL SCH (05:31)
[2019-01-30] MEDS: NovoLOG Insulin Flexpen SUBQ SCH ×3 (05:33→11:53)
[2019-01-30] MEDS: Levemir Flexpen SUBQ SCH (05:33)
[2019-01-30] MEDS ORDERED: Morphine Sulfate 2mg/ml Inj(IV/IM USE ONLY) IVP PRN (06:18)
--- NOTE | 2019-01-30 06:20 | NUR ---
NURSE NOTES: Transferred pt to 4E,report given to ISHMAEL Davidson.Patient stable tolerated r/air well,no respiratory distress,belongings list signed.
[2019-01-30] MEDS ORDERED: Levemir Flexpen SUBQ SCH (06:30)
[2019-01-30 06:55] LABS: HEMATOCRIT 29.1 % (42.0-52.0); HEMOGLOBIN 9.4 G/DL (14.2-18.0); MEAN CORPUSCULAR VOLUME 100 FL (80-99); PLATELET COUNT 79 K/UL (150-450); RED BLOOD COUNT 2.93 M/UL (4.70-6.10); RED CELL DISTRIBUTION WIDTH 13.1 % (11.6-14.8); WHITE BLOOD COUNT 4.9 K/UL (4.8-10.8)
[2019-01-30 07:19] LABS: % IRON SATURATION 42 % (15-50); IRON 52 ug/dL (50-175); TOTAL IRON BINDING CAPACITY 123 ug/dL (250-450)
[2019-01-30 07:28] LABS: ALBUMIN 2.5 G/DL (3.4-5.0); ALBUMIN/GLOBULIN RATIO 0.6 (1.0-2.7); ALKALINE PHOSPHATASE 71 U/L (46-116); ANION GAP 9 mmol/L (5-15); ASPARTATE AMINO TRANSFERASE 12 U/L (15-37); BILIRUBIN,TOTAL 0.6 MG/DL (0.2-1.0); BLOOD UREA NITROGEN 38 mg/dL (7-18); CALCIUM 7.9 MG/DL (8.5-10.1); CARBON DIOXIDE 23 MMOL/L (21-32); CHLORIDE 112 MMOL/L (98-107); CHOLESTEROL 114 MG/DL (< 200); CREATININE 2.7 MG/DL (0.55-1.30); HDL CHOLESTEROL 39 MG/DL (40-60); POTASSIUM 4.5 MMOL/L (3.5-5.1); SODIUM 144 MMOL/L (136-145); TRIGLYCERIDES 68 MG/DL (30-150)
--- NOTE | 2019-01-30 07:28 | NUR ---
HAND-OFF: Report given to Simba Forte)ISHMAEL.
--- NOTE | 2019-01-30 07:30 | NUR ---
NURSE NOTES: Received pt in bed, AAO x 3. Room air. No c/o of pain/distress. IV on L AC 18g intact and patent, with saline lock. Side rails x2. Bed in the lowest, locked, and alarm on. Call light within reach. Will continue to monitor
[2019-01-30 07:52] LABS: CREATINE KINASE 68 U/L (26-308); GAMMA GLUTAMYL TRANSPEPTIDASE 11 U/L (5-85); PHOSPHORUS 3.7 MG/DL (2.5-4.9)
[2019-01-30 08:00] VITALS: BP 181/62
[2019-01-30 08:20] LABS: ALANINE AMINOTRANSFERASE 6 U/L (12-78); FERRITIN 1068 NG/ML (8-388)
[2019-01-30] MEDS ORDERED: Allopurinol 100mg Tab ORAL SCH (09:00)
[2019-01-30] MEDS ORDERED: Milk of Magnesia 30ml Ud ORAL PRN (09:00)
[2019-01-30] MEDS ORDERED: Furosemide 40mg tab ORAL SCH (09:00)
[2019-01-30] MEDS ORDERED: Docusate 100mg cap ORAL SCH (09:00)
--- NOTE | 2019-01-30 09:05 | NUR ---
DISCHARGE PLANNING PATIENT WAS REFERRED TO [facility] YESTERDAY AND WAS DECLINED..DR SHAH WAS NOTIFIED YESTERDAY CLINICALS FAXED TO [facility] T: [phone] F: [phone] ACCEPTED BACK TO [facility] ROOM 17B...AWAITING DISCHARGE ORDER
[2019-01-30] MEDS ORDERED: HydrALAZINE 25mg tab ORAL PRN (09:45)
[2019-01-30] MEDS ORDERED: Vancomycin 1gm/D5W 275ml IVPB ONE ×2 (10:00)
--- NOTE | 2019-01-30 10:08 | Hematology/Onc Progress Note ---
Assessment/Plan Assessment/Plan Assessment and Recs: # Anemia of chronic disease with elevated ferritin >1100, likely multifactorial , due to chronic disease --> anemia panel has been reviewed, ferritin 1068 --> peripheral smear reviewed, and no e/o hemolysis --> okay to continue on po iron for now --> trend hgb 9.9-->9-->10.4-->9.4 --> hold off on epo # Thrombocytopenia with current trend 50-100 range --> unknown etiology, hep PEDING and hiv NR --> us of abd prn --> plt transf is plt <20k --> plt trend: 84k-->79 # Bacteremia coag neg --> VANC as per id # Diabetes mellitus --> accuchecks qac and qhs --> [id number] goal <8 --> endo eval prn # Syncope --> cards recs, ekg --> monitor for recurrence --> neuro checks # Hypernatremia --> per renal, currently on ivf # RATNA --> renal recs # Dvt ppx with hep sq Time of note does not correspond to time patient was seen. Greatly appreciate consultation. Subjective Allergies: Coded Allergies: No Known Allergies (Unverified , 07/14/17) Subjective 01/29: no events to report, potentially clear for tx [facility], seen by others 01/30: transferred to , no acute events, ferritin 1068, dc planning Objective Objective Current Medications Medications (Trade) Dose Ordered Sig/Jethro Route PRN Reason Start Time Stop Time Status Last Admin Dose Admin Acetaminophen (Tylenol) 650 mg Q6H PRN ORAL Mild Pain/Temp > 100.5 01/30/19 11:00 02/26/19 04:59 Allopurinol (Zyloprim) 100 mg DAILY ORAL 01/30/19 09:00 02/26/19 08:59 01/30/19 08:31 Amlodipine Besylate (Norvasc) 5 mg ONCE ORAL 01/30/19 09:45 01/30/19 11:00 Amlodipine Besylate (Norvasc) 10 mg DAILY ORAL 01/31/19 09:00 03/01/19 08:59 Atorvastatin Calcium (Lipitor) 10 mg BEDTIME ORAL 01/30/19 21:00 02/26/19 20:59 Carvedilol (Coreg) 3.125 mg Q12HR ORAL 01/30/19 09:00 02/27/19 20:59 01/30/19 08:30 Dextrose (Dextrose 50%) 25 ml Q30M PRN IV Hypoglycemia 01/30/19 06:30 02/26/19 04:29 Dextrose (Dextrose 50%) 50 ml Q30M PRN IV Hypoglycemia 01/30/19 06:30 02/26/19 04:29 Docusate Sodium (Colace) 200 mg DAILY ORAL 01/30/19 09:00 02/26/19 08:59 01/30/19 08:30 Furosemide (Lasix) 40 mg DAILY ORAL 01/30/19 09:00 02/28/19 08:59 01/30/19 08:30 Hydralazine HCl (Apresoline) 25 mg Q4H PRN ORAL bp over 160 syst 01/30/19 09:45 03/01/19 09:44 Hydralazine HCl (Apresoline) 50 mg Q8HR ORAL 01/30/19 14:00 02/27/19 13:59 Insulin Aspart (NovoLOG) BEFORE MEALS AND HS SUBQ 01/30/19 06:30 02/26/19 06:29 Insulin Detemir (Levemir) 36 units ACBREAKFAST SUBQ 01/30/19 06:30 02/26/19 06:29 Magnesium Hydroxide (Mom) 30 ml DAILY PRN ORAL Constipation 01/30/19 09:00 02/26/19 04:59 Morphine Sulfate (Morphine Sulfate) 2 mg Q4H PRN IVP For Pain 01/30/19 06:18 02/03/19 06:17 Pantoprazole (Protonix) 40 mg DAILY ORAL 01/30/19 09:00 03/01/19 08:59 01/30/19 08:30 Vancomycin HCl (Vanco rx to dose) 1 ea DAILY PRN MISC Per rx protocol 01/30/19 09:00 02/28/19 12:44 Vancomycin HCl 1 gm/Dextrose 275 ml @ 183.708 mls/hr ONCE ONCE IVPB 01/30/19 10:00 01/30/19 11:29 Last 24 Hour Vital Signs Date Time Temp Pulse Resp B/P (MAP) Pulse Ox O2 Delivery O2 Flow Rate FiO2 01/30/19 09:00 Room Air 01/30/19 08:31 64 181/62 01/30/19 08:30 64 181/62 01/30/19 08:00 98.3 64 18 181/62 (101) 97 01/30/19 05:31 130/72 01/30/19 04:00 60 01/30/19 04:00 97.7 63 18 130/72 (91) 97 01/30/19 03:28 60 01/30/19 00:00 97.4 57 18 124/64 (84) 98 01/29/19 23:19 56 01/29/19 21:14 148/66 01/29/19 21:13 60 148/66 01/29/19 21:00 Room Air 01/29/19 20:00 98.0 60 18 148/66 (93) 97 01/29/19 19:23 58 01/29/19 16:00 97.6 61 18 131/51 (77) 97 01/29/19 15:32 66 01/29/19 14:38 145/94 01/29/19 12:28 79 145/94 01/29/19 12:00 98.4 79 20 145/94 (111) 97 01/29/19 11:41 67 01/29/19 09:16 74 150/85 01/29/19 09:00 Room Air 01/29/19 08:00 97.1 74 18 150/85 (106) 98 01/29/19 07:38 69 01/29/19 06:00 98/62 01/29/19 04:00 97.9 65 20 98/62 (74) 96 01/29/19 04:00 71 01/29/19 00:00 98.1 66 17 142/73 (96) 97 01/29/19 00:00 65 01/28/19 22:03 79 143/83 01/28/19 22:03 143/83 01/28/19 21:00 Room Air 01/28/19 20:00 98.0 79 18 143/83 (103) 95 01/28/19 20:00 71 01/28/19 16:00 97.9 85 16 145/89 (107) 98 01/28/19 16:00 84 01/28/19 13:37 141/79 01/28/19 12:00 53 01/28/19 12:00 98.7 86 18 141/79 (99) 97 Intake and Output 01/29/19 01/30/19 19:00 07:00 Intake Total 600 ml 100 ml Output Total 600 ml 450 ml Balance 0 ml -350 ml Intake Oral 600 ml 100 ml Output Urine Total 600 ml 450 ml # Voids 1 Labs Test 01/27/19 15:05 01/27/19 23:30 01/29/19 07:27 01/30/19 06:35 Troponin I 0.048 ng/mL (0.000-0.056) 0.029 ng/mL (0.000-0.056) White Blood Count 5.3 K/UL (4.8-10.8) 4.9 K/UL (4.8-10.8) Red Blood Count 3.12 M/UL (4.70-6.10) 2.93 M/UL (4.70-6.10) Hemoglobin 10.1 G/DL (14.2-18.0) 9.4 G/DL (14.2-18.0) Hematocrit 31.1 % (42.0-52.0) 29.1 % (42.0-52.0) Mean Corpuscular Volume 100 FL (80-99) 100 FL (80-99) Mean Corpuscular Hemoglobin 32.3 PG (27.0-31.0) 32.0 PG (27.0-31.0) Mean Corpuscular Hemoglobin Concent 32.4 G/DL (32.0-36.0) 32.2 G/DL (32.0-36.0) Red Cell Distribution Width 13.5 % (11.6-14.8) 13.1 % (11.6-14.8) Platelet Count 84 K/UL (150-450) 79 K/UL (150-450) Mean Platelet Volume 9.5 FL (6.5-10.1) 9.2 FL (6.5-10.1) Neutrophils (%) (Auto) % (45.0-75.0) % (45.0-75.0) Lymphocytes (%) (Auto) % (20.0-45.0) % (20.0-45.0) Monocytes (%) (Auto) % (1.0-10.0) % (1.0-10.0) Eosinophils (%) (Auto) % (0.0-3.0) % (0.0-3.0) Basophils (%) (Auto) % (0.0-2.0) % (0.0-2.0) Differential Total Cells Counted 100 100 Neutrophils % (Manual) 42 % (45-75) 38 % (45-75) Lymphocytes % (Manual) 50 % (20-45) 53 % (20-45) Monocytes % (Manual) 5 % (1-10) 5 % (1-10) Eosinophils % (Manual) 3 % (0-3) 4 % (0-3) Basophils % (Manual) 0 % (0-2) 0 % (0-2) Band Neutrophils 0 % (0-8) 0 % (0-8) Platelet Estimate Decreased Decreased Platelet Morphology Normal Normal Macrocytosis 1+ 1+ Sodium Level 143 MMOL/L (136-145) 144 MMOL/L (136-145) Potassium Level 4.7 MMOL/L (3.5-5.1) 4.5 MMOL/L (3.5-5.1) Chloride Level 112 MMOL/L (98-107) 112 MMOL/L (98-107) Carbon Dioxide Level 23 MMOL/L (21-32) 23 MMOL/L (21-32) Anion Gap 8 mmol/L (5-15) 9 mmol/L (5-15) Blood Urea Nitrogen 33 mg/dL (7-18) 38 mg/dL (7-18) Creatinine 2.6 MG/DL (0.55-1.30) 2.7 MG/DL (0.55-1.30) Estimat Glomerular Filtration Rate mL/min (>60) mL/min (>60) Glucose Level 135 MG/DL (74-106) 113 MG/DL (74-106) Calcium Level 8.3 MG/DL (8.5-10.1) 7.9 MG/DL (8.5-10.1) Hemoglobin A1c 5.9 % (4.3-6.0) Uric Acid 5.2 MG/DL (2.6-7.2) Phosphorus Level 3.7 MG/DL (2.5-4.9) Magnesium Level 1.8 MG/DL (1.8-2.4) Iron Level 52 ug/dL (50-175) Total Iron Binding Capacity 123 ug/dL (250-450) Percent Iron Saturation 42 % (15-50) Unsaturated Iron Binding 71 ug/dL (112-346) Ferritin 1068 NG/ML (8-388) Total Bilirubin 0.6 MG/DL (0.2-1.0) Gamma Glutamyl Transpeptidase 11 U/L (5-85) Aspartate Amino Transf (AST/SGOT) 12 U/L (15-37) Alanine Aminotransferase (ALT/SGPT) 6 U/L (12-78) Alkaline Phosphatase 71 U/L (46-116) Total Creatine Kinase 68 U/L (26-308) C-Reactive Protein, Quantitative 1.1 mg/dL (0.00-0.90) Pro-B-Type Natriuretic Peptide 2192 pg/mL (0-125) Total Protein 6.4 G/DL (6.4-8.2) Albumin 2.5 G/DL (3.4-5.0) Globulin 3.9 g/dL Albumin/Globulin Ratio 0.6 (1.0-2.7) Triglycerides Level 68 MG/DL (30-150) Cholesterol Level 114 MG/DL (< 200) LDL Cholesterol 62 mg/dL (<100) HDL Cholesterol 39 MG/DL (40-60) Cholesterol/HDL Ratio 2.9 (3.3-4.4) Folate 8.4 NG/ML (8.6-58.9) Thyroid Stimulating Hormone (TSH) 1.168 uiU/mL (0.358-3.740) Random Vancomycin Level 13.5 ug/mL Height (Feet): 6 Height (Inches): 3.00 Weight (Pounds): 184 Objective Physical Exam Gen: alert, Chronically Ill ENT: normal ENT inspection Pulm: ctab, no cwr CV: regular rate, rhythm, no edema GI: soft, nt, nd Msk: normal inspection, back normal Neurologic: normal inspection, alert, responsive, speech normal Bear Mayo MD Jan 30, 2019 10:08
--- NOTE | 2019-01-30 11:00 | Nephrology Progress Note ---
Assessment/Plan Problem List: (1) Renal failure (ARF), acute on chronic (2) Hypertension Assessment: OOC (3) Diabetes mellitus (4) History of CVA (cerebrovascular accident) (5) History of acute gouty arthritis (6) Contracture of multiple joints Assessment 1. Acute kidney injury on CKD stage 4, most likely multifactorial: DM , Dehydration... 2. Hypernatremia secondary to volume depletion. 3. Hypertension- 4. Anemia. Plan Hold Lasix- Up dose Allopurinol- monitor renal parameters avoid nephrotoxics adjust BP meds per orders echo; Normal left ventricular chamber size, systolic function and wall motion to extent visualized. Left ventricular ejection fraction estimated to be 60-65 %. Mild left ventricular hypertrophy by 2-D. No evidence of pericardial effusion. Subjective ROS Limited/Unobtainable: No Constitutional: Reports: malaise, weakness Objective Objective Last 24 Hour Vital Signs Date Time Temp Pulse Resp B/P (MAP) Pulse Ox O2 Delivery O2 Flow Rate FiO2 01/30/19 10:03 64 181/62 01/30/19 09:00 Room Air 01/30/19 08:31 64 181/62 01/30/19 08:30 64 181/62 01/30/19 08:00 98.3 64 18 181/62 (101) 97 01/30/19 05:31 130/72 01/30/19 04:00 60 01/30/19 04:00 97.7 63 18 130/72 (91) 97 01/30/19 03:28 60 01/30/19 00:00 97.4 57 18 124/64 (84) 98 01/29/19 23:19 56 01/29/19 21:14 148/66 01/29/19 21:13 60 148/66 01/29/19 21:00 Room Air 01/29/19 20:00 98.0 60 18 148/66 (93) 97 01/29/19 19:23 58 01/29/19 16:00 97.6 61 18 131/51 (77) 97 01/29/19 15:32 66 01/29/19 14:38 145/94 01/29/19 12:28 79 145/94 01/29/19 12:00 98.4 79 20 145/94 (111) 97 01/29/19 11:41 67 Intake and Output 01/29/19 01/30/19 19:00 07:00 Intake Total 600 ml 100 ml Output Total 600 ml 450 ml Balance 0 ml -350 ml Intake Oral 600 ml 100 ml Output Urine Total 600 ml 450 ml # Voids 1 Laboratory Tests 01/30/19 06:35: White Blood Count 4.9, Red Blood Count 2.93L, Hemoglobin 9.4L, Hematocrit 29.1L , Mean Corpuscular Volume 100H, Mean Corpuscular Hemoglobin 32.0H, Mean Corpuscular Hemoglobin Concent 32.2, Red Cell Distribution Width 13.1, Platelet Count 79L, Mean Platelet Volume 9.2, Neutrophils (%) (Auto) , Lymphocytes (%) ( Auto) , Monocytes (%) (Auto) , Eosinophils (%) (Auto) , Basophils (%) (Auto) , Differential Total Cells Counted 100, Neutrophils % (Manual) 38L, Lymphocytes % (Manual) 53H, Monocytes % (Manual) 5, Eosinophils % (Manual) 4H, Basophils % ( Manual) 0, Band Neutrophils 0, Platelet Estimate DecreasedL, Platelet Morphology Normal, Macrocytosis 1+, Sodium Level 144, Potassium Level 4.5, Chloride Level 112H, Carbon Dioxide Level 23, Anion Gap 9, Blood Urea Nitrogen 38H, Creatinine 2.7H, Estimat Glomerular Filtration Rate , Glucose Level 113H, Hemoglobin A1c 5.9, Uric Acid 5.2, Calcium Level 7.9L, Phosphorus Level 3.7, Magnesium Level 1.8, Iron Level 52, Total Iron Binding Capacity 123L, Percent Iron Saturation 42, Unsaturated Iron Binding 71L, Ferritin 1068H, Total Bilirubin 0.6, Gamma Glutamyl Transpeptidase 11, Aspartate Amino Transf (AST/ SGOT) 12L, Alanine Aminotransferase (ALT/SGPT) 6L, Alkaline Phosphatase 71, Total Creatine Kinase 68, C-Reactive Protein, Quantitative 1.1H, Pro-B-Type Natriuretic Peptide 2192H, Total Protein 6.4, Albumin 2.5L, Globulin 3.9, Albumin/Globulin Ratio 0.6L, Triglycerides Level 68, Cholesterol Level 114, LDL Cholesterol 62, HDL Cholesterol 39L, Cholesterol/HDL Ratio 2.9L, Folate 8.4L, Thyroid Stimulating Hormone (TSH) 1.168, Random Vancomycin Level 13.5 Height (Feet): 6 Height (Inches): 3.00 Weight (Pounds): 184 General Appearance: no apparent distress, lethargic Cardiovascular: bradycardia Respiratory/Chest: decreased breath sounds Abdomen: distended Kong Betts MD Jan 30, 2019 11:00
--- NOTE | 2019-01-30 11:13 | Cardiac Electrophysiology PN ---
Assessment/Plan Assessment/Plan 1. CHF due to diastolic dysfunction and elevated BNP of more than 3000, Echocardiogram EF 60%. Continue Lasix 40 mg daily. 2. Hypertension, on Coreg 3.125 mg b.i.d. Hydralazine 50 q8 and Lasix. 3. Hyperlipidemia, on Lipitor. 4. Anemia. Further evaluation by Dr. Mayo. 5. Altered mental status versus syncope. Going to [facility] 6. Diabetes. MARANDA RN Subjective Subjective Alert in NAD. No CP or SOB. Transfer to [facility] pending. Objective Last 24 Hour Vital Signs Date Time Temp Pulse Resp B/P (MAP) Pulse Ox O2 Delivery O2 Flow Rate FiO2 01/30/19 10:03 64 181/62 01/30/19 09:00 Room Air 01/30/19 08:31 64 181/62 01/30/19 08:30 64 181/62 01/30/19 08:00 98.3 64 18 181/62 (101) 97 01/30/19 05:31 130/72 01/30/19 04:00 60 01/30/19 04:00 97.7 63 18 130/72 (91) 97 01/30/19 03:28 60 01/30/19 00:00 97.4 57 18 124/64 (84) 98 01/29/19 23:19 56 01/29/19 21:14 148/66 01/29/19 21:13 60 148/66 01/29/19 21:00 Room Air 01/29/19 20:00 98.0 60 18 148/66 (93) 97 01/29/19 19:23 58 01/29/19 16:00 97.6 61 18 131/51 (77) 97 01/29/19 15:32 66 01/29/19 14:38 145/94 01/29/19 12:28 79 145/94 01/29/19 12:00 98.4 79 20 145/94 (111) 97 01/29/19 11:41 67 Intake and Output 01/29/19 01/30/19 19:00 07:00 Intake Total 600 ml 100 ml Output Total 600 ml 450 ml Balance 0 ml -350 ml Intake Oral 600 ml 100 ml Output Urine Total 600 ml 450 ml # Voids 1 Laboratory Tests Test 01/30/19 06:35 White Blood Count 4.9 K/UL (4.8-10.8) Red Blood Count 2.93 M/UL (4.70-6.10) L Hemoglobin 9.4 G/DL (14.2-18.0) L Hematocrit 29.1 % (42.0-52.0) L Mean Corpuscular Volume 100 FL (80-99) H Mean Corpuscular Hemoglobin 32.0 PG (27.0-31.0) H Mean Corpuscular Hemoglobin Concent 32.2 G/DL (32.0-36.0) Red Cell Distribution Width 13.1 % (11.6-14.8) Platelet Count 79 K/UL (150-450) L Mean Platelet Volume 9.2 FL (6.5-10.1) Neutrophils (%) (Auto) % (45.0-75.0) Lymphocytes (%) (Auto) % (20.0-45.0) Monocytes (%) (Auto) % (1.0-10.0) Eosinophils (%) (Auto) % (0.0-3.0) Basophils (%) (Auto) % (0.0-2.0) Differential Total Cells Counted 100 Neutrophils % (Manual) 38 % (45-75) L Lymphocytes % (Manual) 53 % (20-45) H Monocytes % (Manual) 5 % (1-10) Eosinophils % (Manual) 4 % (0-3) H Basophils % (Manual) 0 % (0-2) Band Neutrophils 0 % (0-8) Platelet Estimate Decreased L Platelet Morphology Normal Macrocytosis 1+ Sodium Level 144 MMOL/L (136-145) Potassium Level 4.5 MMOL/L (3.5-5.1) Chloride Level 112 MMOL/L (98-107) H Carbon Dioxide Level 23 MMOL/L (21-32) Anion Gap 9 mmol/L (5-15) Blood Urea Nitrogen 38 mg/dL (7-18) H Creatinine 2.7 MG/DL (0.55-1.30) H Estimat Glomerular Filtration Rate mL/min (>60) Glucose Level 113 MG/DL (74-106) H Hemoglobin A1c 5.9 % (4.3-6.0) Uric Acid 5.2 MG/DL (2.6-7.2) Calcium Level 7.9 MG/DL (8.5-10.1) L Phosphorus Level 3.7 MG/DL (2.5-4.9) Magnesium Level 1.8 MG/DL (1.8-2.4) Iron Level 52 ug/dL (50-175) Total Iron Binding Capacity 123 ug/dL (250-450) L Percent Iron Saturation 42 % (15-50) Unsaturated Iron Binding 71 ug/dL (112-346) L Ferritin 1068 NG/ML (8-388) H Total Bilirubin 0.6 MG/DL (0.2-1.0) Gamma Glutamyl Transpeptidase 11 U/L (5-85) Aspartate Amino Transf (AST/SGOT) 12 U/L (15-37) L Alanine Aminotransferase (ALT/SGPT) 6 U/L (12-78) L Alkaline Phosphatase 71 U/L (46-116) Total Creatine Kinase 68 U/L (26-308) C-Reactive Protein, Quantitative 1.1 mg/dL (0.00-0.90) H Pro-B-Type Natriuretic Peptide 2192 pg/mL (0-125) H Total Protein 6.4 G/DL (6.4-8.2) Albumin 2.5 G/DL (3.4-5.0) L Globulin 3.9 g/dL Albumin/Globulin Ratio 0.6 (1.0-2.7) L Triglycerides Level 68 MG/DL (30-150) Cholesterol Level 114 MG/DL (< 200) LDL Cholesterol 62 mg/dL (<100) HDL Cholesterol 39 MG/DL (40-60) L Cholesterol/HDL Ratio 2.9 (3.3-4.4) L Folate 8.4 NG/ML (8.6-58.9) L Thyroid Stimulating Hormone (TSH) 1.168 uiU/mL (0.358-3.740) Random Vancomycin Level 13.5 ug/mL Objective HEAD AND NECK: Showed no JVD.Right eye is blind LUNGS: Clear. CARDIOVASCULAR: Shows regular S1 and S2 with no gallop. ABDOMEN: Soft. EXTREMITIES: No pitting edema. José Mcdonald MD Jan 30, 2019 11:13
--- NOTE | 2019-01-30 11:32 | Pulmonology Progress Note ---
Assessment/Plan Problems: (1) Severe anemia (2) Hypertension (3) At high risk for aspiration (4) Acute encephalopathy (5) Contracture of multiple joints (6) History of acute gouty arthritis (7) History of CVA (cerebrovascular accident) (8) Diabetes mellitus Assessment/Plan no new complains prbc prn monitor BP symptomatic treatment dvt prophylaxis aspiration precaution dc planning Subjective ROS Limited/Unobtainable: No Constitutional: Reports: no symptoms HEENT: Repors: no symptoms Respiratory: Reports: no symptoms Allergies: Coded Allergies: No Known Allergies (Unverified , 07/14/17) Objective Last 24 Hour Vital Signs Date Time Temp Pulse Resp B/P (MAP) Pulse Ox O2 Delivery O2 Flow Rate FiO2 01/30/19 10:03 64 181/62 01/30/19 09:00 Room Air 01/30/19 08:31 64 181/62 01/30/19 08:30 64 181/62 01/30/19 08:00 98.3 64 18 181/62 (101) 97 01/30/19 05:31 130/72 01/30/19 04:00 60 01/30/19 04:00 97.7 63 18 130/72 (91) 97 01/30/19 03:28 60 01/30/19 00:00 97.4 57 18 124/64 (84) 98 01/29/19 23:19 56 01/29/19 21:14 148/66 01/29/19 21:13 60 148/66 01/29/19 21:00 Room Air 01/29/19 20:00 98.0 60 18 148/66 (93) 97 01/29/19 19:23 58 01/29/19 16:00 97.6 61 18 131/51 (77) 97 01/29/19 15:32 66 01/29/19 14:38 145/94 01/29/19 12:28 79 145/94 01/29/19 12:00 98.4 79 20 145/94 (111) 97 01/29/19 11:41 67 Intake and Output 01/29/19 01/30/19 19:00 07:00 Intake Total 600 ml 100 ml Output Total 600 ml 450 ml Balance 0 ml -350 ml Intake Oral 600 ml 100 ml Output Urine Total 600 ml 450 ml # Voids 1 General Appearance: WD/WN HEENT: normocephalic Respiratory/Chest: chest wall non-tender, lungs clear Cardiovascular: normal rate, regular rhythm Abdomen: soft, non tender, no organomegaly Extremities: no clubbing Skin: no lesions Neurologic/Psychiatric: bright cutter II-XII grossly normal Laboratory Tests 01/30/19 06:35: White Blood Count 4.9, Red Blood Count 2.93L, Hemoglobin 9.4L, Hematocrit 29.1L , Mean Corpuscular Volume 100H, Mean Corpuscular Hemoglobin 32.0H, Mean Corpuscular Hemoglobin Concent 32.2, Red Cell Distribution Width 13.1, Platelet Count 79L, Mean Platelet Volume 9.2, Neutrophils (%) (Auto) , Lymphocytes (%) ( Auto) , Monocytes (%) (Auto) , Eosinophils (%) (Auto) , Basophils (%) (Auto) , Differential Total Cells Counted 100, Neutrophils % (Manual) 38L, Lymphocytes % (Manual) 53H, Monocytes % (Manual) 5, Eosinophils % (Manual) 4H, Basophils % ( Manual) 0, Band Neutrophils 0, Platelet Estimate DecreasedL, Platelet Morphology Normal, Macrocytosis 1+, Sodium Level 144, Potassium Level 4.5, Chloride Level 112H, Carbon Dioxide Level 23, Anion Gap 9, Blood Urea Nitrogen 38H, Creatinine 2.7H, Estimat Glomerular Filtration Rate , Glucose Level 113H, Hemoglobin A1c 5.9, Uric Acid 5.2, Calcium Level 7.9L, Phosphorus Level 3.7, Magnesium Level 1.8, Iron Level 52, Total Iron Binding Capacity 123L, Percent Iron Saturation 42, Unsaturated Iron Binding 71L, Ferritin 1068H, Total Bilirubin 0.6, Gamma Glutamyl Transpeptidase 11, Aspartate Amino Transf (AST/ SGOT) 12L, Alanine Aminotransferase (ALT/SGPT) 6L, Alkaline Phosphatase 71, Total Creatine Kinase 68, C-Reactive Protein, Quantitative 1.1H, Pro-B-Type Natriuretic Peptide 2192H, Total Protein 6.4, Albumin 2.5L, Globulin 3.9, Albumin/Globulin Ratio 0.6L, Triglycerides Level 68, Cholesterol Level 114, LDL Cholesterol 62, HDL Cholesterol 39L, Cholesterol/HDL Ratio 2.9L, Folate 8.4L, Thyroid Stimulating Hormone (TSH) 1.168, Random Vancomycin Level 13.5 Current Medications Medications (Trade) Dose Ordered Sig/Jethro Route PRN Reason Start Time Stop Time Status Last Admin Dose Admin Acetaminophen (Tylenol) 650 mg Q6H PRN ORAL Mild Pain/Temp > 100.5 01/30/19 11:00 02/26/19 04:59 Allopurinol (Zyloprim) 200 mg DAILY ORAL 01/31/19 09:00 02/26/19 08:59 Atorvastatin Calcium (Lipitor) 10 mg BEDTIME ORAL 01/30/19 21:00 02/26/19 20:59 Carvedilol (Coreg) 3.125 mg Q12HR ORAL 01/30/19 09:00 02/27/19 20:59 01/30/19 08:30 Dextrose (Dextrose 50%) 25 ml Q30M PRN IV Hypoglycemia 01/30/19 06:30 02/26/19 04:29 Dextrose (Dextrose 50%) 50 ml Q30M PRN IV Hypoglycemia 01/30/19 06:30 02/26/19 04:29 Docusate Sodium (Colace) 200 mg DAILY ORAL 01/30/19 09:00 02/26/19 08:59 01/30/19 08:30 Hydralazine HCl (Apresoline) 25 mg Q4H PRN ORAL bp over 160 syst 01/30/19 09:45 03/01/19 09:44 Hydralazine HCl (Apresoline) 50 mg Q8HR ORAL 01/30/19 14:00 02/27/19 13:59 Insulin Aspart (NovoLOG) BEFORE MEALS AND HS SUBQ 01/30/19 06:30 02/26/19 06:29 Insulin Detemir (Levemir) 36 units ACBREAKFAST SUBQ 01/30/19 06:30 02/26/19 06:29 Magnesium Hydroxide (Mom) 30 ml DAILY PRN ORAL Constipation 01/30/19 09:00 02/26/19 04:59 Morphine Sulfate (Morphine Sulfate) 2 mg Q4H PRN IVP For Pain 01/30/19 06:18 02/03/19 06:17 Nifedipine (Procardia XL) 30 mg BID ORAL 01/30/19 18:00 03/01/19 17:59 Pantoprazole (Protonix) 40 mg DAILY ORAL 01/30/19 09:00 03/01/19 08:59 01/30/19 08:30 Vancomycin HCl (Vanco rx to dose) 1 ea DAILY PRN MISC Per rx protocol 01/30/19 09:00 02/28/19 12:44 Dieter Hwang MD Jan 30, 2019 11:32
--- NOTE | 2019-01-30 11:33 | NUR ---
DISCHARGE PLANNED PATIENT WILL DISCHARGE TO [facility] ROOM [address] SKILLED T: [phone] FOR NURSE TO NURSE REPORT [facility] HAS BEEN [facility] FOR [address]
[2019-01-30 12:00] VITALS: BP 164/78
--- NOTE | 2019-01-30 12:35 | Infectious Diseases Prog Note ---
Assessment/Plan Assessment/Plan Assessment: CONS bacteremia- suspect likely contaminant -01/26 3/4 CONS; 01/29 BCx p -01/26 2d Echo: no vegetations Afebrile No leukocytosis Syncopal episode MDD HTN Dm2 anemia decubitus ulcer gouty arthritis HLD CKD CVA dysphagia s/p PEG now removed [facility] resident Plan: -Cont empiric IV Vancomycin #2 pending repeat Bcx -f/u cx -Monitor CBC/CMP, temperatures -f/u repeat Bcx x2 -aspiration precautions -wound care per hospital protocol Thank you for this consultation. Will continue to follow along with you. Discussed with RN Subjective Allergies: Coded Allergies: No Known Allergies (Unverified , 07/14/17) Objective Vital Signs Last 24 Hour Vital Signs Date Time Temp Pulse Resp B/P (MAP) Pulse Ox O2 Delivery O2 Flow Rate FiO2 01/30/19 10:03 64 181/62 01/30/19 09:00 Room Air 01/30/19 08:31 64 181/62 01/30/19 08:30 64 181/62 01/30/19 08:00 98.3 64 18 181/62 (101) 97 01/30/19 05:31 130/72 01/30/19 04:00 60 01/30/19 04:00 97.7 63 18 130/72 (91) 97 01/30/19 03:28 60 01/30/19 00:00 97.4 57 18 124/64 (84) 98 01/29/19 23:19 56 01/29/19 21:14 148/66 01/29/19 21:13 60 148/66 01/29/19 21:00 Room Air 01/29/19 20:00 98.0 60 18 148/66 (93) 97 01/29/19 19:23 58 01/29/19 16:00 97.6 61 18 131/51 (77) 97 01/29/19 15:32 66 01/29/19 14:38 145/94 Height (Feet): 6 Height (Inches): 3.00 Weight (Pounds): 184 Laboratory Tests Test 01/30/19 06:35 White Blood Count 4.9 K/UL (4.8-10.8) Red Blood Count 2.93 M/UL (4.70-6.10) L Hemoglobin 9.4 G/DL (14.2-18.0) L Hematocrit 29.1 % (42.0-52.0) L Mean Corpuscular Volume 100 FL (80-99) H Mean Corpuscular Hemoglobin 32.0 PG (27.0-31.0) H Mean Corpuscular Hemoglobin Concent 32.2 G/DL (32.0-36.0) Red Cell Distribution Width 13.1 % (11.6-14.8) Platelet Count 79 K/UL (150-450) L Mean Platelet Volume 9.2 FL (6.5-10.1) Neutrophils (%) (Auto) % (45.0-75.0) Lymphocytes (%) (Auto) % (20.0-45.0) Monocytes (%) (Auto) % (1.0-10.0) Eosinophils (%) (Auto) % (0.0-3.0) Basophils (%) (Auto) % (0.0-2.0) Differential Total Cells Counted 100 Neutrophils % (Manual) 38 % (45-75) L Lymphocytes % (Manual) 53 % (20-45) H Monocytes % (Manual) 5 % (1-10) Eosinophils % (Manual) 4 % (0-3) H Basophils % (Manual) 0 % (0-2) Band Neutrophils 0 % (0-8) Platelet Estimate Decreased L Platelet Morphology Normal Macrocytosis 1+ Sodium Level 144 MMOL/L (136-145) Potassium Level 4.5 MMOL/L (3.5-5.1) Chloride Level 112 MMOL/L (98-107) H Carbon Dioxide Level 23 MMOL/L (21-32) Anion Gap 9 mmol/L (5-15) Blood Urea Nitrogen 38 mg/dL (7-18) H Creatinine 2.7 MG/DL (0.55-1.30) H Estimat Glomerular Filtration Rate mL/min (>60) Glucose Level 113 MG/DL (74-106) H Hemoglobin A1c 5.9 % (4.3-6.0) Uric Acid 5.2 MG/DL (2.6-7.2) Calcium Level 7.9 MG/DL (8.5-10.1) L Phosphorus Level 3.7 MG/DL (2.5-4.9) Magnesium Level 1.8 MG/DL (1.8-2.4) Iron Level 52 ug/dL (50-175) Total Iron Binding Capacity 123 ug/dL (250-450) L Percent Iron Saturation 42 % (15-50) Unsaturated Iron Binding 71 ug/dL (112-346) L Ferritin 1068 NG/ML (8-388) H Total Bilirubin 0.6 MG/DL (0.2-1.0) Gamma Glutamyl Transpeptidase 11 U/L (5-85) Aspartate Amino Transf (AST/SGOT) 12 U/L (15-37) L Alanine Aminotransferase (ALT/SGPT) 6 U/L (12-78) L Alkaline Phosphatase 71 U/L (46-116) Total Creatine Kinase 68 U/L (26-308) C-Reactive Protein, Quantitative 1.1 mg/dL (0.00-0.90) H Pro-B-Type Natriuretic Peptide 2192 pg/mL (0-125) H Total Protein 6.4 G/DL (6.4-8.2) Albumin 2.5 G/DL (3.4-5.0) L Globulin 3.9 g/dL Albumin/Globulin Ratio 0.6 (1.0-2.7) L Triglycerides Level 68 MG/DL (30-150) Cholesterol Level 114 MG/DL (< 200) LDL Cholesterol 62 mg/dL (<100) HDL Cholesterol 39 MG/DL (40-60) L Cholesterol/HDL Ratio 2.9 (3.3-4.4) L Folate 8.4 NG/ML (8.6-58.9) L Thyroid Stimulating Hormone (TSH) 1.168 uiU/mL (0.358-3.740) Random Vancomycin Level 13.5 ug/mL Current Medications Medications (Trade) Dose Ordered Sig/Jethro Route PRN Reason Start Time Stop Time Status Last Admin Dose Admin Acetaminophen (Tylenol) 650 mg Q6H PRN ORAL Mild Pain/Temp > 100.5 01/30/19 11:00 02/26/19 04:59 Allopurinol (Zyloprim) 200 mg DAILY ORAL 01/31/19 09:00 02/26/19 08:59 Atorvastatin Calcium (Lipitor) 10 mg BEDTIME ORAL 01/30/19 21:00 02/26/19 20:59 Carvedilol (Coreg) 3.125 mg Q12HR ORAL 01/30/19 09:00 02/27/19 20:59 01/30/19 08:30 Dextrose (Dextrose 50%) 25 ml Q30M PRN IV Hypoglycemia 01/30/19 06:30 02/26/19 04:29 Dextrose (Dextrose 50%) 50 ml Q30M PRN IV Hypoglycemia 01/30/19 06:30 02/26/19 04:29 Docusate Sodium (Colace) 200 mg DAILY ORAL 01/30/19 09:00 02/26/19 08:59 01/30/19 08:30 Hydralazine HCl (Apresoline) 25 mg Q4H PRN ORAL bp over 160 syst 01/30/19 09:45 03/01/19 09:44 Hydralazine HCl (Apresoline) 50 mg Q8HR ORAL 01/30/19 14:00 02/27/19 13:59 Insulin Aspart (NovoLOG) BEFORE MEALS AND HS SUBQ 01/30/19 06:30 02/26/19 06:29 01/30/19 11:53 Insulin Detemir (Levemir) 36 units ACBREAKFAST SUBQ 01/30/19 06:30 02/26/19 06:29 Magnesium Hydroxide (Mom) 30 ml DAILY PRN ORAL Constipation 01/30/19 09:00 02/26/19 04:59 Morphine Sulfate (Morphine Sulfate) 2 mg Q4H PRN IVP For Pain 01/30/19 06:18 02/03/19 06:17 Nifedipine (Procardia XL) 30 mg BID ORAL 01/30/19 18:00 03/01/19 17:59 Pantoprazole (Protonix) 40 mg DAILY ORAL 01/30/19 09:00 03/01/19 08:59 01/30/19 08:30 Vancomycin HCl (Vanco rx to dose) 1 ea DAILY PRN MISC Per rx protocol 01/30/19 09:00 02/28/19 12:44 Marguerite Carnes M.D. Jan 30, 2019 12:35
[2019-01-30 14:00] VITALS: BP 164/78
[2019-01-30] MEDS ORDERED: HydrALAZINE 50mg tab ORAL SCH (14:00)
--- NOTE | 2019-01-30 14:15 | General Progress Note ---
Assessment/Plan Problem List: (1) Hypertension ICD Codes: I10 - Essential (primary) hypertension SNOMED: 77982560 (2) Diabetes mellitus ICD Codes: E11.9 - Type 2 diabetes mellitus without complications SNOMED: 85145708 (3) Acute encephalopathy ICD Codes: G93.40 - Encephalopathy, unspecified SNOMED: 18531466, 976277167 (4) History of acute gouty arthritis ICD Codes: Z87.39 - Personal history of other diseases of the musculoskeletal system and connective tissue SNOMED: 343722655 (5) History of CVA (cerebrovascular accident) ICD Codes: Z86.73 - Personal history of transient ischemic attack (TIA), and cerebral infarction without residual deficits SNOMED: 126712892 (6) Severe anemia ICD Codes: D64.9 - Anemia, unspecified SNOMED: 128835110 Status: stable, progressing Assessment/Plan: pt diet cardio f/u dc to snf if all clear Subjective Constitutional: Reports: weakness Allergies: Coded Allergies: No Known Allergies (Unverified , 07/14/17) All Systems: reviewed and negative except above Subjective sleepy in bed Objective Last 24 Hour Vital Signs Date Time Temp Pulse Resp B/P (MAP) Pulse Ox O2 Delivery O2 Flow Rate FiO2 01/30/19 12:00 98.4 63 17 164/78 (106) 98 01/30/19 10:03 64 181/62 01/30/19 09:00 Room Air 01/30/19 08:31 64 181/62 01/30/19 08:30 64 181/62 01/30/19 08:00 98.3 64 18 181/62 (101) 97 01/30/19 05:31 130/72 01/30/19 04:00 60 01/30/19 04:00 97.7 63 18 130/72 (91) 97 01/30/19 03:28 60 01/30/19 00:00 97.4 57 18 124/64 (84) 98 01/29/19 23:19 56 01/29/19 21:14 148/66 01/29/19 21:13 60 148/66 01/29/19 21:00 Room Air 01/29/19 20:00 98.0 60 18 148/66 (93) 97 01/29/19 19:23 58 01/29/19 16:00 97.6 61 18 131/51 (77) 97 01/29/19 15:32 66 01/29/19 14:38 145/94 Intake and Output 01/29/19 01/30/19 19:00 07:00 Intake Total 600 ml 100 ml Output Total 600 ml 450 ml Balance 0 ml -350 ml Intake Oral 600 ml 100 ml Output Urine Total 600 ml 450 ml # Voids 1 Laboratory Tests 01/30/19 06:35: White Blood Count 4.9, Red Blood Count 2.93L, Hemoglobin 9.4L, Hematocrit 29.1L , Mean Corpuscular Volume 100H, Mean Corpuscular Hemoglobin 32.0H, Mean Corpuscular Hemoglobin Concent 32.2, Red Cell Distribution Width 13.1, Platelet Count 79L, Mean Platelet Volume 9.2, Neutrophils (%) (Auto) , Lymphocytes (%) ( Auto) , Monocytes (%) (Auto) , Eosinophils (%) (Auto) , Basophils (%) (Auto) , Differential Total Cells Counted 100, Neutrophils % (Manual) 38L, Lymphocytes % (Manual) 53H, Monocytes % (Manual) 5, Eosinophils % (Manual) 4H, Basophils % ( Manual) 0, Band Neutrophils 0, Platelet Estimate DecreasedL, Platelet Morphology Normal, Macrocytosis 1+, Sodium Level 144, Potassium Level 4.5, Chloride Level 112H, Carbon Dioxide Level 23, Anion Gap 9, Blood Urea Nitrogen 38H, Creatinine 2.7H, Estimat Glomerular Filtration Rate , Glucose Level 113H, Hemoglobin A1c 5.9, Uric Acid 5.2, Calcium Level 7.9L, Phosphorus Level 3.7, Magnesium Level 1.8, Iron Level 52, Total Iron Binding Capacity 123L, Percent Iron Saturation 42, Unsaturated Iron Binding 71L, Ferritin 1068H, Total Bilirubin 0.6, Gamma Glutamyl Transpeptidase 11, Aspartate Amino Transf (AST/ SGOT) 12L, Alanine Aminotransferase (ALT/SGPT) 6L, Alkaline Phosphatase 71, Total Creatine Kinase 68, C-Reactive Protein, Quantitative 1.1H, Pro-B-Type Natriuretic Peptide 2192H, Total Protein 6.4, Albumin 2.5L, Globulin 3.9, Albumin/Globulin Ratio 0.6L, Triglycerides Level 68, Cholesterol Level 114, LDL Cholesterol 62, HDL Cholesterol 39L, Cholesterol/HDL Ratio 2.9L, Folate 8.4L, Thyroid Stimulating Hormone (TSH) 1.168, Random Vancomycin Level 13.5 Height (Feet): 6 Height (Inches): 3.00 Weight (Pounds): 184 General Appearance: lethargic EENT: normal ENT inspection Neck: normal alignment Cardiovascular: normal peripheral pulses, normal rate, regular rhythm Respiratory/Chest: chest wall non-tender, lungs clear, normal breath sounds Abdomen: normal bowel sounds, non tender, soft Extremities: normal inspection Edema: no edema noted Arm (L), no edema noted Arm (R), no edema noted Leg (L), no edema noted Leg (R), no edema noted Pedal (L), no edema noted Pedal (R), no edema noted Generalized Neurologic: motor weakness Skin: normal pigmentation, warm/dry Benji Springer DO Jan 30, 2019 14:15
--- NOTE | 2019-01-30 14:40 | NUR ---
NURSE NOTES: Patient was discharged to [facility], via ambulance. Report was given to ISHMAEL Camacho. ID and IV was removed. No s/s of infection on the removal site. Pt had no belongings. Discharge instructions and prescriptions were given. Picture was taken on the sacral area.
[2019-01-31] MEDS ORDERED: Allopurinol 100mg Tab ORAL SCH (09:00)
--- NOTE | 2019-01-31 14:10 | Discharge Summary ---
Discharge Summary Discharge Summary _ DATE OF ADMISSION: 01/26/2019 DATE OF DISCHARGE: 01/30/2019 DISCHARGED BY: Dr. Springer REASON FOR ADMISSION: 73 years old male, resident of shelter facility, with past medical history of hypertension, diabetes mellitus, CVA, was sent for evaluation due to syncopal episode. Episodes occurred about 3 hours prior to arrival. Patient by himself was a poor historian and unable to provided information. Upon evaluation vital signs revealed elevated blood pressure 182/88. Laboratory work-up revealed no leukocytosis , hemoglobin 9.9 , hematocrit 28.7 , platelet count 92. Stable electrolytes. BUN 40, creatinine 2.9. Glucose 233. Stable LFT. Lactic acid 1.4. Troponin -0.022. pro BNP 3065. EKG revealed sinus rhythm no acute ischemic changes. Urinalysis revealed +3 protein , negative for leukocyte esterase, +mild pyuria and occasional bacteria . Chest x-ray demonstrated no acute cardiopulmonary pathology. Patient subsequently admitted for further management. CONSULTANTS: neurourologist Dr. Sharpe hospitalist Dr. Hwang ID specialist Dr. Carnes circus agent Dr. Betts bulb filler/oncologist Dr. Mayo [facility] COURSE: Patient admitted to monitored floor . Serial troponin were negative. EKG revealed no acute ischemic changes. Patient was ruled out for acute myocardial infarction. Telemetry did not demonstrate any significant arrhythmia. Venous duplex bilateral lower extremity revealed no evidence of acute DVT. Supplemental oxygen was on board as needed to keep pulse oximetry above 92%. Echocardiogram demonstrated preserved ejection fraction 60 to 65% with mild left ventricular hypertrophy. No evidence of pericardial effusion . No evidence of wall motion abnormality. Right ventricular systolic pressure of 31. Per neurourologist , patient had congestive heart failure due to diastolic dysfunction. Patient started on diuretic with close monitoring of volumes and cardiorenal parameters. Blood pressure was managed with beta-tahir, hydralazine, calcium channel tahir and Lasix. Blood pressure improved. Statin continued. Lipid panel was stable. Patient was counseled on diabetic low-cholesterol low-fat diet. Hemoglobin A1c 5.9 , at goal. GI prophylaxis provided. Bowel regimen instituted. Supportive care provided. Blood culture initially revealed Staph coagulase negative. Infectious disease specialist followed. Patient was on empiric antibiotic. Repeated blood cultures were negative. Patient had no leukocytosis, no fever. Infectious disease specialist felt, that Staph coagulase negative bacteremia was likely contaminant. Strict aspiration precaution maintained. Lamination Technician followed. Patient had acute kidney injury and chronic kidney disease stage IV, likely multifactorial due to diabetes mellitus and dehydration. Patient also exhibited hypernatremia secondary to volume depletion. Lasix was stopped. Patient started on allopurinol, and dose was uptitrated. Renal parameters and electrolytes were closely monitored. Electrolytes corrected as needed, and nephrotoxins were avoided. Engineering Coordinator followed. Hemoglobin and hematocrit were closely monitored with goal to keep hemoglobin above 7. Ferritin elevated 1068. Anemia work-up consistent with anemia of chronic disease, most likely multifactorial. Prior to discharge hemoglobin 9.4, hematocrit 29.1 , platelet count 79. EPO was placed on hold. HIV test was nonreactive. Hepatitis panel at time of this dictation still pending. Fall precaution maintained. Patient was working with physical therapist. Supportive care provided. Bowel regimen instituted. Pain management was addressed as needed. Patient clinically stabilized and was ready for transfer back to shelter facility for continuation of care. FINAL DIAGNOSES: Congestive heart failure due to diastolic dysfunction Renal failure ,acute on chronic , most likely multifactorial due to diabetes and dehydration Acute encephalopathy Chronic kidney disease stage IV Hypernatremia secondary to volume depletion Hypertension Hyperlipidemia Anemia of chronic disease Thrombocytopenia History of gouty arthritis History of CVA Syncope Diabetes mellitus Major depressive disorder DISCHARGE MEDICATIONS: See Medication Reconciliation list. DISCHARGE INSTRUCTIONS: Patient was discharged to the shelter facility. Follow up with medical doctor at the facility. I have been assigned to dictate discharge summary for this account. I was not involved in the patient's management. Stella Barrios NP Jan 31, 2019 14:10
== END 2019-01-30 14:40 | DRG 291 ==
LOC: EDBD 21:49 → EMR 22:20 → EDBEDREQ 23:12 → 2W 23:41 → EDBEDREQ 23:50 → 2W 01-27 05:08 → 2E 01-28 16:45 → 4E 01-30 05:52
DX: I13.0 Hypertensive heart and chronic kidney disease with heart failure and stage 1 through stage 4 chronic kidney disease, or unspecified chronic kidney disease (principal); I50.33 Acute on chronic diastolic (congestive) heart failure; G92 Toxic encephalopathy; N18.4 Chronic kidney disease, stage 4 (severe); N17.9 Acute kidney failure, unspecified; E87.0 Hyperosmolality and hypernatremia; F33.1 Major depressive disorder, recurrent, moderate; E11.22 Type 2 diabetes mellitus with diabetic chronic kidney disease; D64.9 Anemia, unspecified; Z79.4 Long term (current) use of insulin; E11.9 Type 2 diabetes mellitus without complications; Z86.73 Personal history of transient ischemic attack (TIA), and cerebral infarction without residual deficits; I10 Essential (primary) hypertension; L89.90 Pressure ulcer of unspecified site, unspecified stage; E78.5 Hyperlipidemia, unspecified; D63.8 Anemia in other chronic diseases classified elsewhere; D69.6 Thrombocytopenia, unspecified; M10.9 Gout, unspecified; R55 Syncope and collapse; M24.50 Contracture, unspecified joint; E86.0 Dehydration
CPT/HCPCS: 36415; 71045; 80048; 80053; 80061; 80202; 81003; 82378; 82550; 82553; 82607; 82728; 82746; 82962; 82977; 83036; 83540; 83550; 83605; 83615; 83735; 83880; 84100; 84443; 84484; 84550; 85007; 85025; 85044; 85060; 85610; 85730; 86140; 86703; 86705; 86709; 86803; 87040; 87081; 87181; 87340; 93005; 93306; 93970; 96360; 99285; J1815; S5561